=== PATIENT | female | born 1935 | race Caucasian/White ===

== ENCOUNTER 2019-01-12 15:40 | Inpatient (IN) | payer BC, OTHER ==
--- NOTE | 2019-01-12 16:38 | PDOC ---
History of Present Illness - General History Source: Patient - History of Present Illness Occurred: reports: other Severity: Yes: severe <Giselle Marinelli - Last Filed: 01/12/19 19:08> <Sneha Jang - Last Filed: 01/15/19 11:57> - General Chief Complaint: Wound Stated Complaint: LT HELIX WOUND Time Seen by Provider: 01/12/19 16:14 Past History - Past Medical History CVA: Yes COPD: No Diabetes: Yes HTN: Yes Thyroid Disease: Yes - Immunization History Immunization Up to Date: Yes - Suicide/Smoking/Psychosocial Hx Smoking History: Never smoked Have you smoked in the past 12 months: No If you are a former smoker, when did you quit?: 60 YRS AGO Hx Alcohol Use: No Drug/Substance Use Hx: No <Laquita MarinelliLisa - Last Filed: 01/12/19 19:08> <Sneha Jang - Last Filed: 01/15/19 11:57> - Past Medical History Allergies/Adverse Reactions: Allergies Allergy/AdvReac Type Severity Reaction Status Date / Time No Known Allergies Allergy Verified 01/12/19 15:01 Review of Systems - Review of Systems Constitutional: No: Chills, Fever, Malaise Integumentary: Yes: Erythema <Laquita MarinelliLisa - Last Filed: 01/12/19 19:08> *Physical Exam - Vital Signs Last Vital Signs Temp Pulse Resp BP Pulse Ox 98.5 F 54 L 17 153/49 L 99 01/12/19 15:43 01/12/19 15:43 01/12/19 15:43 01/12/19 15:43 01/12/19 15:43 - Physical Exam General Appearance: Yes: Appropriately Dressed. No: Apparent Distress HEENT: positive: Normal Voice Neck: positive: Supple Respiratory/Chest: negative: Respiratory Distress Extremity: positive: Erythema (Ulcer to tip of L great toe w/ extensive erythema to L foot extending into calf, no incr warmth or ttp, unable to palpate pulses) Integumentary: positive: Dry, Warm Neurologic: positive: Alert, Normal Mood/Affect <HeidelbergSirishaLaquitaLisa - Last Filed: 01/12/19 19:08> - Vital Signs Last Vital Signs Temp Pulse Resp BP Pulse Ox 98.0 F 52 L 19 152/66 96 01/15/19 09:53 01/15/19 09:53 01/15/19 09:53 01/15/19 09:53 01/14/19 21:00 <Sneha Jang - Last Filed: 01/15/19 11:57> ED Treatment Course - LABORATORY CBC & Chemistry Diagram: 01/12/19 17:25 01/12/19 17:25 - RADIOLOGY Radiology Studies Ordered: Category Date Time Status LOWER EXTREMITY MRI W/O-LEFT [MRI] Stat MRI 01/12/19 16:29 Ordered CHEST X-RAY PORTABLE* [RAD] Stat Radiology 01/12/19 16:28 Ordered FOOT-LEFT [RAD] Stat Radiology 01/12/19 16:29 Ordered DUPLEX VASCUL US-1 LEG [US] Stat Ultrasound 01/12/19 16:32 Ordered <Giselle Marinelli - Last Filed: 01/12/19 19:08> - LABORATORY CBC & Chemistry Diagram: 01/15/19 06:10 01/13/19 06:45 - Medications Given in the ED: ED Medications Discontinued Medications Generic Name Dose Route Start Last Admin Trade Name Freq PRN Reason Stop Dose Admin Vancomycin HCl 1,000 mg/ 250 mls @ 250 mls/hr 01/12/19 16:33 01/12/19 18:05 Dextrose IVPB 01/12/19 17:32 Not Given ONCE ONE Protocol Piperacillin Sod/Tazobactam 50 mls @ 100 mls/hr 01/12/19 18:03 01/12/19 18:05 Sod 3.375 gm/ Dextrose IVPB 01/12/19 18:32 100 mls/hr ONCE ONE Administration Protocol Vancomycin HCl 1,000 mg/ 250 mls @ 250 mls/hr 01/12/19 18:09 01/12/19 18:53 Dextrose IVPB 01/12/19 19:08 250 mls/hr ONCE ONE Administration Protocol Piperacillin Sod/Tazobactam 50 mls @ 100 mls/hr 01/13/19 02:00 01/13/19 09:35 Sod 3.375 gm/ Dextrose IVPB 01/13/19 10:29 100 mls/hr Q8H-IV LETICIA Administration <Sneha Jang - Last Filed: 01/15/19 11:57> Medical Decision Making - Medical Decision Making 01/12/19 16:33 83-year-old F, resident from [facility], w/o h/o HTN, HLD, DM, hypothyroid , sent to ED by Dr Vasquez of vascular for LLE cellulitis, r/o osteo. Patient reports swelling and redness to LLE for several weeks. Denies fever, chills or malaise. Per vascular notes, C&S collected from L great toe wound today. Patient to be admitted for IV antibiotics and to get MRI of L foot while in ER. M.D. also requesting ID consultation See exam LLE cellulitis, r/o osteo of L great toe No sytemic sxs Stable w/ open wound to L great toe w/ extensive cellulitis to LLE -IV abx -labs -XR -MRI -admit 01/12/19 16:44 01/12/19 19:11 Labs unremarkable. Case discussed with hospitalist and patient admitted <Giselle Marinelli - Last Filed: 01/12/19 19:08> *DC/Admit/Observation/Transfer - Discharge Dispostion Decision to Admit order: Yes <Giselle Marinelli - Last Filed: 01/12/19 19:08> - Attestations Physician Attestion: I reviewed the case with the mid-level practitioner and agree with the mid- level practitioner's assessment, diagnosis and disposition. <Sneha Jang - Last Filed: 01/15/19 11:57> Diagnosis at time of Disposition: Left leg cellulitis - Discharge Dispostion Condition at time of disposition: Fair
[2019-01-12 17:50] LABS: EOS % 2.9 % (0-4.5); HEMATOCRIT 29.1 % (32.4-45.2); HEMOGLOBIN 9.1 GM/dL (10.7-15.3); LYMPH % 20.1 % (8-40); MCH 25.7 pg (25.7-33.7); MCHC 31.3 g/dl (32.0-36.0); MEAN CELL VOLUME 82.2 fl (80-96); MEAN PLT VOLUME 8.5 fl (7.5-11.1); MONO % 6.7 % (3.8-10.2); NEUT % 69.3 % (42.8-82.8); PLATELET COUNT 377 K/MM3 (134-434); RBC 3.55 M/mm3 (3.60-5.2); RDW 15.4 % (11.6-15.6); WHITE BLOOD COUNT 7.2 K/mm3 (4.0-10.0)
[2019-01-12] MEDS ORDERED: PIPERACILLIN/TAZOB 3.375 GM 3.375 GM in DEXTROSE 5%-WATER - 50 ML IVPB ONE (18:03)
[2019-01-12] MEDS: VANCOMYCIN 1,000 MG in DEXTROSE 5%-WATER - 250 ML IVPB ONE ×2 (18:04→18:05)
[2019-01-12] MEDS ORDERED: PIPERACILLIN/TAZOB 3.375 GM 3.375 GM/50 ML BAG IVPB ONE (18:07)
[2019-01-12 18:09] LABS: INR 1.02 (0.83-1.09)
[2019-01-12] MEDS ORDERED: VANCOMYCIN 1,000 MG in DEXTROSE 5%-WATER - 250 ML IVPB ONE (18:09)
[2019-01-12 18:29] LABS: ALK PHOS 83 U/L (45-117); ANION GAP 6 MMOL/L (8-16); BILIRUBIN,TOTAL 0.2 mg/dL (0.2-1); BLOOD UREA NITROGEN 22 mg/dL (7-18); CALCIUM 9.5 mg/dL (8.5-10.1); CHLORIDE 106 mmol/L (98-107); CO2 27 mmol/L (21-32); CREATININE 0.8 mg/dL (0.55-1.3); GLUCOSE,RANDOM 127 mg/dL (74-106); POTASSIUM 4.6 mmol/L (3.5-5.1); SGOT/AST 12 U/L (15-37); SGPT/ALT 12 U/L (13-61); SODIUM 138 mmol/L (136-145)
--- NOTE | 2019-01-12 19:31 | PN ---
Teaching Attending Note Name of Resident: Arti Chong ATTENDING PHYSICIAN STATEMENT I saw and evaluated the patient. I reviewed the resident's note and discussed the case with the resident. I agree with the resident's findings and plan as documented. SUBJECTIVE: Patient is an 83 year old woman, resident of [facility] with PMH of HTN , HLD, NIDDM and hypothyroidism, sent to ER by Dr Vasquez of vascular for LLE wound and cellulitis to rule out osteomyelitis. Patient reports swelling and redness to LLE for several weeks. Denies fever, chills or malaise. Per Vascular Surgery notes, C&S collected from L great toe wound today. Patient to be admitted for IV antibiotics and to get MRI of L foot while in ER. PCP also requesting ID consultation. OBJECTIVE: Alert Vital Signs Period Temp Pulse Resp BP Sys/Torre Pulse Ox Last 24 Hr 98.5 F 54 17 153/49 99 HEENT: No Jaundice, eye redness or discharge, PERRLA, EOMI. Normocephalic, atraumatic. External ears are normal and hearing is grossly intact. No nasal discharge. Neck: Supple, nontender. No palpable adenopathy or thyromegaly. No JVD Chest: Good effort. Clear to auscultation and percussion. Heart: Regular. No S3, rub or murmur Abdomen: Not distended, soft, nontender and no HSM. No rebound or guarding. Normal bowel sounds. Ext: Peripheral pulses intact. No leg edema. Wound at tip of left great toe with associated swelling, nontender; erythema up to below the knee. Skin: Warm and dry. No petechiae, rash or ecchymosis. Neuro: Alert. Oriented x3. CN 2-12 grossly intact. Sensation grossly intact in all four extremities and DTR are symmetric. Psych: Appropriate mood and affect. Good insight. Abnormal Lab Results 01/12/19 01/12/19 01/12/19 17:25 17:25 17:27 RBC 3.55 L Hgb 9.1 L Hct 29.1 L MCHC 31.3 L Anion Gap 6 L BUN 22 H Random Glucose 127 H AST 12 L ALT 12 L C-Reactive Protein 2.8 H Albumin 3.0 L Current Medications Generic Name Dose Route Start Last Admin Trade Name Freq PRN Reason Stop Dose Admin Acetaminophen 650 mg 01/12/19 20:44 Tylenol - PO Q6H PRN FEVER Amlodipine Besylate 10 mg 01/13/19 10:00 Norvasc - PO DAILY [facility] Aspirin 81 mg 01/13/19 10:00 Asa - PO DAILY [facility] Calcium Carbonate/Cholecalciferol 1 tab 01/13/19 10:00 Os-Oskar 500+D - PO DAILY [facility] Clopidogrel Bisulfate 75 mg 01/13/19 10:00 Plavix - PO DAILY [facility] Docusate Sodium 100 mg 01/12/19 20:43 Colace - PO DAILY PRN CONSTIPATION Fenofibric Acid 45 mg 01/13/19 10:00 Trilipix - PO DAILY [facility] Heparin Sodium (Porcine) 5,000 unit 01/12/19 22:00 Heparin - SQ BID [facility] Hydralazine HCl 10 mg 01/12/19 22:00 Apresoline - PO TID [facility] Piperacillin Sod/Tazobactam 50 mls @ 100 mls/hr 01/13/19 02:00 Sod 3.375 gm/ Dextrose IVPB Q8H-IV [facility] Protocol Piperacillin Sod/Tazobactam 50 mls @ 100 mls/hr 01/13/19 02:00 Sod 3.375 gm/ Dextrose IVPB 01/13/19 10:29 Q8H-IV [facility] Insulin Aspart 1 vial 01/12/19 22:00 Novolog Vial Sliding Scale - SQ ACHS [facility] Protocol Lactobacillus Acidophilus 1 tab 01/13/19 10:00 Bacid - PO DAILY [facility] Levothyroxine Sodium 112 mcg 01/13/19 07:00 Synthroid - PO DAILY@0700 [facility] Lisinopril 20 mg 01/12/19 22:00 Prinivil PO BID [facility] Senna 1 tab 01/12/19 20:43 Senna - PO DAILY PRN CONSTIPATION Vancomycin HCl 1,000 mg 01/13/19 10:00 Vancomycin (Pre-Docked) IVPB DAILY [facility] Protocol Zinc Sulfate 220 mg 01/13/19 10:00 Orazinc - PO DAILY [facility] Home Medications Medication Instructions Recorded Amlodipine Besylate 1 tab PO DAILY 01/12/19 Ascorbic Acid [Vitamin C] 500 mg PO DAILY 01/12/19 Aspirin [ASA -] 1 tab PO DAILY 01/12/19 Calcium Carbonate/Vitamin D3 1 tab PO DAILY 01/12/19 [Calcium 500-Vit D3 600 Tablet] Clopidogrel Bisulfate [Plavix] 1 tab PO DAILY 01/12/19 Docusate Sodium [Colace] 1 tab PO DAILY PRN 01/12/19 Fenofibrate 40 mg PO DAILY 01/12/19 Glipizide 1 tab PO BID 01/12/19 Hydralazine HCl 10 mg PO TID 01/12/19 Lactobacillus Acidophilus [Bacid -] 1 tab PO DAILY 01/12/19 Levothyroxine [Synthroid -] 1 tab PO DAILY 01/12/19 Lisinopril 20 mg PO BID 01/12/19 Meloxicam [Mobic] 15 mg PO DAILY 01/12/19 Sennosides [Senna Laxative] 1 tab PO DAILY PRN 01/12/19 Zinc Sulfate [Zinc-15] 66 mg PO DAILY 01/12/19 ASSESSMENT AND PLAN: 1. Left great toe infected wound and LLE cellulitis - Will treat with IV Vancomycin and zosyn pending culture report. Foot xray shows fracture at the base of the first distal phalanx, soft tissue swelling and osteopenia. Results of MRI pending. Podiatry and vascular surgery consults. No acute abnormality on CXR. EKG pending. 2. Hypoalbuminemia - Possibly due to combined effects of malnutrition and inflammation associated with comorbid chronic conditions. Will rule out proteinuria. Will ensure adequate dietary protein intake and also consult computer trainer. 3. DM For now, we will hold the home diabetes drugs and implement sliding scale insulin regimen. Provide comprehensive diabetes care with patient teaching and counseling about the importance of adherence to prescribed diabetes regimen, euglycemia, eye care and foot care. 4. Anemia - Likely multifactorial. Will do basic anemia work up including serial stool guaiacs, reticulocyte count and iron studies. 5. Obesity Counseled on the risks associated with obesity. Will provide patient all the necessary assistance, counseling and positive reinforcement to facilitate weight loss. Consult computer trainer. 6. Uncontrolled Hypertension - Restart outpatient antihypertensive drugs and revise regimen to ensure smooth [id number] good BP control. Nonpharmacologic measures to control hypertension like weight loss, salt restriction and exercise discussed. 7. DVT prophylaxis - Lovenox 40 mg SQ q 24 hours. 8. Advance directives - Full code
[2019-01-12] MEDS ORDERED: DOCUSATE SODIUM 100 MG CAPSULE (FP) PO PRN (20:43)
[2019-01-12] MEDS ORDERED: SENNOSIDES 8.6MG TABLET (FP) PO PRN (20:43)
[2019-01-12] MEDS ORDERED: ACETAMINOPHEN 325 MG TABLET (FP) PO PRN (20:44)
--- NOTE | 2019-01-12 21:14 | HP ---
CHIEF COMPLAINT:left great toe ulcer PCP:Dr. Vasquez HISTORY OF PRESENT ILLNESS: Patient is an 83 year old female with past medical history of DM, HTN, HLD, hypothyroidism, presented from wound care clinic due to left great toe ulcers. Patient reported the wound started about 2 months ago, but could not remember any trauma to the area. As per patient it was cleaned at the [facility] everyday. She could not remember when the redness on the left leg started, saying it might have been about the same time as the ulcer. She was seen by Dr. Vasquez at the [facility] where she was told to come to the wound care clinic. This morning, debridement of the wound was done and cultures were taken. She was advised admission to rule out osteomyelitis and for IV antibiotics. Otherwise, patient denies any fever, chills, pain on the left leg/foot, headache, dizziness, chest pain, SOB, abdominal pain, diarrhea, urinary symptoms. ER course was notable for: (1)H/H 9.1/29.1, ESR 2.8, CRP 97 (2)Vanc and Zosyn given x1 (3)Left foot xray: Slightly displaced fracture at the base of the first distal phalanx, medially involving the articular surface. Significant osteopenia is limiting evaluation of the bone and focal bone destruction within the lateral aspect of the first disctal phalanx could not be entirely excluded. Significant soft tissue swelling. Recent Travel:denies PAST MEDICAL HISTORY: DM HTN HLD hypothyroidism PAST SURGICAL HISTORY: none Social History: Smoking: denies Alcohol:denies Drugs: denies Family History: Allergies No Known Allergies Allergy (Verified 01/12/19 15:01) HOME MEDICATIONS: Home Medications Medication Instructions Recorded Amlodipine Besylate 1 tab PO DAILY 01/12/19 Ascorbic Acid [Vitamin C] 500 mg PO DAILY 01/12/19 Aspirin [ASA -] 1 tab PO DAILY 01/12/19 Calcium Carbonate/Vitamin D3 1 tab PO DAILY 01/12/19 [Calcium 500-Vit D3 600 Tablet] Clopidogrel Bisulfate [Plavix] 1 tab PO DAILY 01/12/19 Docusate Sodium [Colace] 1 tab PO DAILY PRN 01/12/19 Fenofibrate 40 mg PO DAILY 01/12/19 Glipizide 1 tab PO BID 01/12/19 Hydralazine HCl 10 mg PO TID 01/12/19 Lactobacillus Acidophilus [Bacid -] 1 tab PO DAILY 01/12/19 Levothyroxine [Synthroid -] 1 tab PO DAILY 01/12/19 Lisinopril 20 mg PO BID 01/12/19 Meloxicam [Mobic] 15 mg PO DAILY 01/12/19 Sennosides [Senna Laxative] 1 tab PO DAILY PRN 01/12/19 Zinc Sulfate [Zinc-15] 66 mg PO DAILY 01/12/19 REVIEW OF SYSTEMS CONSTITUTIONAL: Absent: fever, chills, diaphoresis, generalized weakness, malaise, loss of appetite, weight change HEENT: Absent: rhinorrhea, nasal congestion, throat pain, throat swelling, difficulty swallowing, mouth swelling, ear pain, eye pain, visual changes CARDIOVASCULAR: Absent: chest pain, syncope, palpitations, irregular heart rate, lightheadedness , peripheral edema RESPIRATORY: Absent: cough, shortness of breath, dyspnea with exertion, orthopnea, wheezing, stridor, hemoptysis GASTROINTESTINAL: Absent: abdominal pain, abdominal distension, nausea, vomiting, diarrhea, constipation, melena, hematochezia GENITOURINARY: Absent: dysuria, frequency, urgency, hesitancy, hematuria, flank pain, genital pain MUSCULOSKELETAL: left great toe ulcer Absent: myalgia, arthralgia, joint swelling, back pain, neck pain SKIN: Absent: rash, itching, pallor HEMATOLOGIC/IMMUNOLOGIC: Absent: easy bleeding, easy bruising, lymphadenopathy, frequent infections ENDOCRINE: Absent: unexplained weight gain, unexplained weight loss, heat intolerance, cold intolerance NEUROLOGIC: Absent: headache, focal weakness or paresthesias, dizziness, unsteady gait, seizure, mental status changes, bladder or bowel incontinence PSYCHIATRIC: Absent: anxiety, depression, suicidal or homicidal ideation, hallucinations. PHYSICAL EXAMINATION Vital Signs - 24 hr 01/12/19 15:43 Temperature 98.5 F Pulse Rate 54 L Respiratory 17 Rate Blood Pressure 153/49 L O2 Sat by Pulse 99 Oximetry (%) GENERAL: Awake, alert, and fully oriented, in no acute distress. HEAD: Normal with no signs of trauma. EYES: PERRLA, EOMI, sclera anicteric, conjunctiva clear. EARS, NOSE, THROAT: oropharynx clear without exudates. Moist mucous membranes. NECK: Normal range of motion, supple without lymphadenopathy, JVD, or masses. LUNGS: Breath sounds equal, clear to auscultation bilaterally. HEART: Regular rate and rhythm, normal S1 and S2 without murmur, rub or gallop. ABDOMEN: Soft, nontender, not distended, normoactive bowel sounds. MUSCULOSKELETAL: Normal range of motion at all joints. UPPER EXTREMITIES: 2+ pulses, warm, well-perfused. No peripheral edema. LOWER EXTREMITIES: 2+ pulses, warm, well-perfused. No peripheral edema. LLE: + erythema, no warmth or tenderness from mid-jefferson down to the left foot. +left toe wrapped in dressing (patient refused to have the bandage removed and toe examined) NEUROLOGICAL: Cranial nerves II-XII intact. Normal speech. Gait not observed. PSYCHIATRIC: Cooperative. Good eye contact. Appropriate mood and affect. SKIN: Warm, dry, normal turgor, no rashes or lesions noted. Laboratory Results - last 24 hr 01/12/19 01/12/19 01/12/19 17:25 17:25 17:25 WBC 7.2 RBC 3.55 L Hgb 9.1 L Hct 29.1 L MCV 82.2 MCH 25.7 MCHC 31.3 L RDW 15.4 Plt Count 377 MPV 8.5 Absolute Neuts (auto) 5.0 Neutrophils % 69.3 Lymphocytes % 20.1 Monocytes % 6.7 Eosinophils % 2.9 Basophils % 1.0 Nucleated RBC % 0 ESR PT with INR 12.00 INR 1.02 Sodium 138 Potassium 4.6 Chloride 106 Carbon Dioxide 27 Anion Gap 6 L BUN 22 H Creatinine 0.8 Creat Clearance w eGFR 68.84 Random Glucose 127 H Calcium 9.5 Total Bilirubin 0.2 AST 12 L ALT 12 L Alkaline Phosphatase 83 C-Reactive Protein Total Protein 7.0 Albumin 3.0 L Blood Type Antibody Screen 01/12/19 01/12/19 01/12/19 17:25 17:27 17:27 WBC RBC Hgb Hct MCV MCH MCHC RDW Plt Count MPV Absolute Neuts (auto) Neutrophils % Lymphocytes % Monocytes % Eosinophils % Basophils % Nucleated RBC % ESR 97 H PT with INR INR Sodium Potassium Chloride Carbon Dioxide Anion Gap BUN Creatinine Creat Clearance w eGFR Random Glucose Calcium Total Bilirubin AST ALT Alkaline Phosphatase C-Reactive Protein 2.8 H Total Protein Albumin Blood Type O POSITIVE Antibody Screen Negative ASSESSMENT/PLAN: Patient is an 83 year old female with past medical history of DM, HTN, HLD, hypothyroidism, presented from wound care clinic due to left great toe ulcers. #Left great toe ulcers with left LE cellulitis, rule out osteomyelitis -Debridement done at the wound care clinic today, cultures pending. -Left foot xray: Slightly displaced fracture at the base of the first distal phalanx, medially involving the articular surface. Significant osteopenia is limiting evaluation of the bone and focal bone destruction within the lateral aspect of the first disctal phalanx could not be entirely excluded. Significant soft tissue swelling. -MRI pending -Vascular surgery (Dr. Vasquez) consulted. -ID (Dr. Young) consulted. -Wound cultures pending -Will continue Vanc/Zosyn pending culture and ID recs -Tylenol PRN for pain #DM -Will hold Metformin and Glipizide -HbA1c ordered -Insulin sliding scale -BGM ACHS #Hypertension -Continue Lisinopril 20mg BID -Amlodipine 10mg daily -Hydralazine 10mg TID #Hypothyroidism -Continue home Synthroid 112mcg daily #FEN -Not on any standing fluids -Encourage increased oral fluid intake -Electrolytes wnl, routine bmp monitoring -Diabetic diet #Prophylaxis -Heparin 5000unit sq bid #disposition -full code -med surg Visit type - Emergency Visit Emergency Visit: Yes ED Registration Date: 01/12/19 Care time: The patient presented to the Emergency Department on the above date and was hospitalized for further evaluation of their emergent condition. - New Patient This patient is new to me today: Yes Date on this admission: 01/13/19 - Critical Care Critical Care patient: No
[2019-01-12] MEDS ORDERED: LISINOPRIL 20 MG TABLET (FP) ONE (22:22)
[2019-01-12] MEDS ORDERED: HEPARIN NA (PORCINE) 5,000 UNITS/ML 1ML VIAL ONE (22:23)
[2019-01-12] MEDS: hydrALAZINE HCL 10 MG TABLET PO SCH (22:33)
[2019-01-12] MEDS: INSULIN SLIDING SCALE (NOVOLOG) 1 VIAL SQ SCH (22:39)
[2019-01-12] MEDS: LISINOPRIL 20 MG TABLET (FP) PO SCH ×2 (22:39→23:10)
[2019-01-12] MEDS: HEPARIN NA (PORCINE) 5,000 UNITS/ML 1ML VIAL SQ SCH (22:39)
[2019-01-12] MEDS ORDERED: INSULIN (NOVOLOG) ASPART 100 UNITS/ML 10ML VIAL ONE (22:44)
[2019-01-13] MEDS ORDERED: PIPERACILLIN/TAZOB 3.375 GM 3.375 GM/50 ML BAG IVPB ONE (02:20)
[2019-01-13] MEDS: PIPERACILLIN/TAZOB 3.375 GM 3.375 GM in DEXTROSE 5%-WATER - 50 ML IVPB SCH ×3 (02:24→18:21)
[2019-01-13 03:45] VITALS: BMI 34.0
[2019-01-13] MEDS: INSULIN SLIDING SCALE (NOVOLOG) 1 VIAL SQ SCH ×4 (06:46→22:04)
[2019-01-13] MEDS: LEVOTHYROXINE NA 112 MCG TABLET (FP) PO SCH (06:47)
[2019-01-13] MEDS: hydrALAZINE HCL 10 MG TABLET PO SCH ×3 (06:47→22:01)
[2019-01-13 07:35] LABS: EOS % 2.7 % (0-4.5); HEMATOCRIT 25.7 % (32.4-45.2); HEMOGLOBIN 8.4 GM/dL (10.7-15.3); LYMPH % 21.2 % (8-40); MCH 26.2 pg (25.7-33.7); MCHC 32.7 g/dl (32.0-36.0); MEAN CELL VOLUME 80.1 fl (80-96); MEAN PLT VOLUME 8.4 fl (7.5-11.1); MONO % 7.5 % (3.8-10.2); NEUT % 67.6 % (42.8-82.8); PLATELET COUNT 338 K/MM3 (134-434); RBC 3.21 M/mm3 (3.60-5.2); RDW 15.8 % (11.6-15.6); WHITE BLOOD COUNT 6.9 K/mm3 (4.0-10.0)
[2019-01-13 08:03] LABS: ALBUMIN 2.6 g/dl (3.4-5.0); ALK PHOS 71 U/L (45-117); ANION GAP 6 MMOL/L (8-16); BILIRUBIN,TOTAL 0.2 mg/dL (0.2-1); BLOOD UREA NITROGEN 17 mg/dL (7-18); CALCIUM 8.4 mg/dL (8.5-10.1); CHLORIDE 110 mmol/L (98-107); CO2 26 mmol/L (21-32); CREATININE 0.9 mg/dL (0.55-1.3); GLUCOSE,RANDOM 117 mg/dL (74-106); MAGNESIUM 1.9 mg/dL (1.8-2.4); PHOSPHOROUS 3.1 mg/dL (2.5-4.9); POTASSIUM 4.3 mmol/L (3.5-5.1); SGOT/AST 9 U/L (15-37); SGPT/ALT 9 U/L (13-61); SODIUM 142 mmol/L (136-145); TOT PROT 5.9 g/dl (6.4-8.2)
--- NOTE | 2019-01-13 08:52 | PN ---
Teaching Attending Note ATTENDING PHYSICIAN STATEMENT I saw and evaluated the patient. I reviewed the resident's note and discussed the case with the resident. I agree with the resident's findings and plan as documented. SUBJECTIVE: OBJECTIVE: Vital Signs Temperature 97.9 F 01/13/19 03:41 Pulse Rate 53 L 01/13/19 03:41 Respiratory Rate 17 01/13/19 03:59 Blood Pressure 149/69 01/13/19 03:41 O2 Sat by Pulse Oximetry (%) 98 01/13/19 03:59 GENERAL: Awake, alert, and fully oriented, in no acute distress. HEAD: Normal with no signs of trauma. EYES: PERRLA, EOMI, sclera anicteric, conjunctiva clear. EARS, NOSE, THROAT: oropharynx clear without exudates. Moist mucous membranes. NECK: Normal range of motion, supple without lymphadenopathy, JVD, or masses. LUNGS: Breath sounds equal, clear to auscultation bilaterally. HEART: Regular rate and rhythm, normal S1 and S2 without murmur, rub or gallop. ABDOMEN: Soft, nontender, not distended, normoactive bowel sounds. MUSCULOSKELETAL: Normal range of motion at all joints. UPPER EXTREMITIES: 2+ pulses, warm, well-perfused. No peripheral edema. LOWER EXTREMITIES: 2+ pulses, warm, well-perfused. No peripheral edema. LLE: + erythema, no warmth or tenderness from mid-jefferson down to the left foot. +left toe wrapped in dressing (patient refused to have the bandage removed and toe examined) NEUROLOGICAL: Cranial nerves II-XII intact. Normal speech. Gait not observed. PSYCHIATRIC: Cooperative. Good eye contact. Appropriate mood and affect. SKIN: Warm, dry, normal turgor, no rashes or lesions noted. CBCD WBC 6.9 K/mm3 (4.0-10.0) 01/13/19 06:45 RBC 3.21 M/mm3 (3.60-5.2) L 01/13/19 06:45 Hgb 8.4 GM/dL (10.7-15.3) L 01/13/19 06:45 Hct 25.7 % (32.4-45.2) L 01/13/19 06:45 MCV 80.1 fl (80-96) 01/13/19 06:45 MCHC 32.7 g/dl (32.0-36.0) 01/13/19 06:45 RDW 15.8 % (11.6-15.6) H 01/13/19 06:45 Plt Count 338 K/MM3 (134-434) 01/13/19 06:45 MPV 8.4 fl (7.5-11.1) 01/13/19 06:45 CMP Sodium 142 mmol/L (136-145) 01/13/19 06:45 Potassium 4.3 mmol/L (3.5-5.1) 01/13/19 06:45 Chloride 110 mmol/L (98-107) H 01/13/19 06:45 Carbon Dioxide 26 mmol/L (21-32) 01/13/19 06:45 Anion Gap 6 MMOL/L (8-16) L 01/13/19 06:45 BUN 17 mg/dL (7-18) 01/13/19 06:45 Creatinine 0.9 mg/dL (0.55-1.3) 01/13/19 06:45 Creat Clearance w eGFR 60.09 (>60) 01/13/19 06:45 Random Glucose 117 mg/dL (74-106) H 01/13/19 06:45 Calcium 8.4 mg/dL (8.5-10.1) L 01/13/19 06:45 Total Bilirubin 0.2 mg/dL (0.2-1) 01/13/19 06:45 AST 9 U/L (15-37) L 01/13/19 06:45 ALT 9 U/L (13-61) L 01/13/19 06:45 Alkaline Phosphatase 71 U/L (45-117) 01/13/19 06:45 Total Protein 5.9 g/dl (6.4-8.2) L 01/13/19 06:45 Albumin 2.6 g/dl (3.4-5.0) L 01/13/19 06:45 Current Medications Generic Name Dose Route Start Last Admin Trade Name Freq PRN Reason Stop Dose Admin Acetaminophen 650 mg 01/12/19 20:44 Tylenol - PO Q6H PRN FEVER Amlodipine Besylate 10 mg 01/13/19 10:00 Norvasc - PO DAILY [facility] Aspirin 81 mg 01/13/19 10:00 Asa - PO DAILY [facility] Calcium Carbonate/Cholecalciferol 1 tab 04/13/19 10:00 Os-Oskar 500+D - PO DAILY [facility] Clopidogrel Bisulfate 75 mg 01/13/19 10:00 Plavix - PO DAILY [facility] Docusate Sodium 100 mg 01/12/19 20:43 Colace - PO DAILY PRN CONSTIPATION Fenofibric Acid 45 mg 01/13/19 10:00 Trilipix - PO DAILY [facility] Heparin Sodium (Porcine) 5,000 unit 01/12/19 22:00 01/12/19 22:39 Heparin - SQ 5,000 unit BID [facility] Administration Hydralazine HCl 10 mg 01/12/19 22:00 01/13/19 06:47 Apresoline - PO 10 mg TID [facility] Administration Piperacillin Sod/Tazobactam 50 mls @ 100 mls/hr 01/13/19 02:00 Sod 3.375 gm/ Dextrose IVPB Q8H-IV [facility] Protocol Piperacillin Sod/Tazobactam 50 mls @ 100 mls/hr 01/13/19 02:00 01/13/19 02:24 Sod 3.375 gm/ Dextrose IVPB 01/13/19 10:29 100 mls/hr Q8H-IV [facility] Administration Insulin Aspart 1 vial 01/12/19 22:00 01/13/19 06:46 Novolog Vial Sliding Scale - SQ Not Given ACHS [facility] Protocol Lactobacillus Acidophilus 1 tab 01/13/19 10:00 Bacid - PO DAILY [facility] Levothyroxine Sodium 112 mcg 01/13/19 07:00 01/13/19 06:47 Synthroid - PO 112 mcg DAILY@0700 [facility] Administration Lisinopril 20 mg 01/12/19 22:00 01/12/19 23:10 Prinivil PO 20 mg BID [facility] Administration Senna 1 tab 01/12/19 20:43 Senna - PO DAILY PRN CONSTIPATION Vancomycin HCl 1,000 mg 01/13/19 10:00 Vancomycin (Pre-Docked) IVPB DAILY [facility] Protocol Zinc Sulfate 220 mg 01/13/19 10:00 Orazinc - PO DAILY [facility] Home Medications Medication Instructions Recorded Amlodipine Besylate 1 tab PO DAILY 01/12/19 Ascorbic Acid [Vitamin C] 500 mg PO DAILY 01/12/19 Aspirin [ASA -] 1 tab PO DAILY 01/12/19 Calcium Carbonate/Vitamin D3 1 tab PO DAILY 01/12/19 [Calcium 500-Vit D3 600 Tablet] Clopidogrel Bisulfate [Plavix] 1 tab PO DAILY 01/12/19 Docusate Sodium [Colace] 1 tab PO DAILY PRN 01/12/19 Fenofibrate 40 mg PO DAILY 01/12/19 Glipizide 1 tab PO BID 01/12/19 Hydralazine HCl 10 mg PO TID 01/12/19 Lactobacillus Acidophilus [Bacid -] 1 tab PO DAILY 01/12/19 Levothyroxine [Synthroid -] 1 tab PO DAILY 01/12/19 Lisinopril 20 mg PO BID 01/12/19 Meloxicam [Mobic] 15 mg PO DAILY 01/12/19 Sennosides [Senna Laxative] 1 tab PO DAILY PRN 01/12/19 Zinc Sulfate [Zinc-15] 66 mg PO DAILY 01/12/19 ASSESSMENT AND PLAN: Patient is an 83 year old female with past medical history of DM, HTN, HLD, hypothyroidism, presented from wound care clinic due to left great toe ulcers. #Left great toe ulcers with left LE cellulitis, rule out osteomyelitis -Debridement done at the wound care clinic today, cultures pending. -Left foot xray: Slightly displaced fracture at the base of the first distal phalanx, medially involving the articular surface. Significant osteopenia is limiting evaluation of the bone and focal bone destruction within the lateral aspect of the first disctal phalanx could not be entirely excluded. Significant soft tissue swelling. -MRI pending -Vascular surgery (Dr. Vasquez) consulted. -ID (Dr. Young) consulted. -Wound cultures pending -Will continue Vanc/Zosyn pending culture and ID recs -Tylenol PRN for pain #DM -Will hold Metformin and Glipizide -HbA1c ordered -Insulin sliding scale -BGM ACHS #Hypertension -Continue Lisinopril 20mg BID -Amlodipine 10mg daily -Hydralazine 10mg TID #Hypothyroidism -Continue home Synthroid 112mcg daily #FEN -Not on any standing fluids -Encourage increased oral fluid intake -Electrolytes wnl, routine bmp monitoring -Diabetic diet #Prophylaxis -Heparin 5000unit sq bid #disposition -full code -med surg
[2019-01-13] MEDS ORDERED: PT OWN MED DRAWER 7, Y5N ONE ×2 (09:29→09:37)
[2019-01-13] MEDS ORDERED: DEXTROSE 5%-WATER - 50 ML IVPB ONE ×2 (09:29→18:20)
[2019-01-13] MEDS ORDERED: PIPERACILLIN/TAZOBACTAM 3.375 GM VIAL IVPB ONE ×2 (09:29→18:19)
[2019-01-13] MEDS: CALCIUM 500MG/VIT-D 200 UNITS COMBO TABLET (FP) PO SCH ×2 (09:31→10:00)
[2019-01-13] MEDS: ASPIRIN 81 MG CHEWABLE TABLETS PO SCH (09:31)
[2019-01-13] MEDS: ZINC SULFATE 220 MG CAPSULE (FP) PO SCH ×2 (09:31→11:00)
[2019-01-13] MEDS: HEPARIN NA (PORCINE) 5,000 UNITS/ML 1ML VIAL SQ SCH ×3 (09:31→22:09)
[2019-01-13] MEDS: LISINOPRIL 20 MG TABLET (FP) PO SCH ×2 (09:31→22:01)
[2019-01-13] MEDS: CLOPIDOGREL BISULFATE 75 MG TABLET (FP) PO SCH (09:31)
[2019-01-13] MEDS: amLODIPine BESYLATE 10 MG TABLET (FP) PO SCH (09:31)
[2019-01-13] MEDS: LACTOBACILLUS ACIDOPHILUS 1 TABLET PO SCH (09:31)
--- NOTE | 2019-01-13 10:35 | PN ---
Progress Note (short form) - Note Progress Note: Patient is an 83 year old female with past medical history of DM, HTN, HLD, hypothyroidism, presented from wound care clinic due to left great toe ulcers. Vital Signs Temperature 97.9 F 01/13/19 03:41 Pulse Rate 53 L 01/13/19 03:41 Respiratory Rate 17 01/13/19 03:59 Blood Pressure 149/69 01/13/19 03:41 O2 Sat by Pulse Oximetry (%) 98 01/13/19 03:59 GENERAL: Awake, alert, and fully oriented, in no acute distress. HEAD: Normal with no signs of trauma. EYES: PERRLA, EOMI, sclera anicteric, conjunctiva clear. EARS, NOSE, THROAT: oropharynx clear without exudates. Moist mucous membranes. NECK: Normal range of motion, supple without lymphadenopathy, JVD, or masses. LUNGS: Breath sounds equal, clear to auscultation bilaterally. HEART: Regular rate and rhythm, normal S1 and S2 without murmur, rub or gallop. ABDOMEN: Soft, nontender, not distended, normoactive bowel sounds. EXTREMITIES: 2+ pulses, warm, well-perfused. No peripheral edema. LLE: + erythema up to mid-jefferson of left foot. big toe is swollen, with open ulcers on the plantar surface of the toe with purulent drainage from the big toe NEUROLOGICAL: Cranial nerves II-XII intact. Normal speech. Gait not observed. PSYCHIATRIC: Cooperative. Good eye contact. Appropriate mood and affect. SKIN: Warm, dry, normal turgor, no rashes or lesions noted. CBCD WBC 6.9 K/mm3 (4.0-10.0) 01/13/19 06:45 RBC 3.21 M/mm3 (3.60-5.2) L 01/13/19 06:45 Hgb 8.4 GM/dL (10.7-15.3) L 01/13/19 06:45 Hct 25.7 % (32.4-45.2) L 01/13/19 06:45 MCV 80.1 fl (80-96) 01/13/19 06:45 MCHC 32.7 g/dl (32.0-36.0) 01/13/19 06:45 RDW 15.8 % (11.6-15.6) H 01/13/19 06:45 Plt Count 338 K/MM3 (134-434) 01/13/19 06:45 MPV 8.4 fl (7.5-11.1) 01/13/19 06:45 CMP Sodium 142 mmol/L (136-145) 01/13/19 06:45 Potassium 4.3 mmol/L (3.5-5.1) 01/13/19 06:45 Chloride 110 mmol/L (98-107) H 01/13/19 06:45 Carbon Dioxide 26 mmol/L (21-32) 01/13/19 06:45 Anion Gap 6 MMOL/L (8-16) L 01/13/19 06:45 BUN 17 mg/dL (7-18) 01/13/19 06:45 Creatinine 0.9 mg/dL (0.55-1.3) 01/13/19 06:45 Creat Clearance w eGFR 60.09 (>60) 01/13/19 06:45 Random Glucose 117 mg/dL (74-106) H 01/13/19 06:45 Calcium 8.4 mg/dL (8.5-10.1) L 01/13/19 06:45 Total Bilirubin 0.2 mg/dL (0.2-1) 01/13/19 06:45 AST 9 U/L (15-37) L 01/13/19 06:45 ALT 9 U/L (13-61) L 01/13/19 06:45 Alkaline Phosphatase 71 U/L (45-117) 01/13/19 06:45 Total Protein 5.9 g/dl (6.4-8.2) L 01/13/19 06:45 Albumin 2.6 g/dl (3.4-5.0) L 01/13/19 06:45 Current Medications Generic Name Dose Route Start Last Admin Trade Name Freq PRN Reason Stop Dose Admin Acetaminophen 650 mg 01/12/19 20:44 Tylenol - PO Q6H PRN FEVER Amlodipine Besylate 10 mg 01/13/19 10:00 Norvasc - PO DAILY [facility] Aspirin 81 mg 01/13/19 10:00 Asa - PO DAILY [facility] Calcium Carbonate/Cholecalciferol 1 tab 01/13/19 10:00 Os-Oskar 500+D - PO DAILY [facility] Clopidogrel Bisulfate 75 mg 01/13/19 10:00 Plavix - PO DAILY [facility] Docusate Sodium 100 mg 01/12/19 20:43 Colace - PO DAILY PRN CONSTIPATION Fenofibric Acid 45 mg 01/13/19 10:00 Trilipix - PO DAILY [facility] Heparin Sodium (Porcine) 5,000 unit 01/12/19 22:00 01/12/19 22:39 Heparin - SQ 5,000 unit BID [facility] Administration Hydralazine HCl 10 mg 01/12/19 22:00 01/13/19 06:47 Apresoline - PO 10 mg TID [facility] Administration Piperacillin Sod/Tazobactam 50 mls @ 100 mls/hr 01/13/19 02:00 Sod 3.375 gm/ Dextrose IVPB Q8H-IV [facility] Protocol Piperacillin Sod/Tazobactam 50 mls @ 100 mls/hr 01/13/19 02:00 01/13/19 02:24 Sod 3.375 gm/ Dextrose IVPB 01/13/19 10:29 100 mls/hr Q8H-IV [facility] Administration Insulin Aspart 1 vial 01/12/19 22:00 01/13/19 06:46 Novolog Vial Sliding Scale - SQ Not Given ACHS [facility] Protocol Lactobacillus Acidophilus 1 tab 01/13/19 10:00 Bacid - PO DAILY [facility] Levothyroxine Sodium 112 mcg 01/13/19 07:00 01/13/19 06:47 Synthroid - PO 112 mcg DAILY@0700 [facility] Administration Lisinopril 20 mg 01/12/19 22:00 01/12/19 23:10 Prinivil PO 20 mg BID [facility] Administration Senna 1 tab 01/12/19 20:43 Senna - PO DAILY PRN [facility]STIP[facility] Vancomycin HCl 1,000 mg 01/13/19 10:00 Vancomycin (Pre-Docked) IVPB DAILY [facility] Protocol Zinc Sulfate 220 mg 01/13/19 10:00 Orazinc - PO DAILY [facility] Home Medications Medication Instructions Recorded Amlodipine Besylate 1 tab PO DAILY 01/12/19 Ascorbic Acid [Vitamin C] 500 mg PO DAILY 01/12/19 Aspirin [ASA -] 1 tab PO DAILY 01/12/19 Calcium Carbonate/Vitamin D3 1 tab PO DAILY 01/12/19 [Calcium 500-Vit D3 600 Tablet] Clopidogrel Bisulfate [Plavix] 1 tab PO DAILY 01/12/19 Docusate Sodium [Colace] 1 tab PO DAILY PRN 01/12/19 Fenofibrate 40 mg PO DAILY 01/12/19 Glipizide 1 tab PO BID 01/12/19 Hydralazine HCl 10 mg PO TID 01/12/19 Lactobacillus Acidophilus [Bacid -] 1 tab PO DAILY 01/12/19 Levothyroxine [Synthroid -] 1 tab PO DAILY 01/12/19 Lisinopril 20 mg PO BID 01/12/19 Meloxicam [Mobic] 15 mg PO DAILY 01/12/19 Sennosides [Senna Laxative] 1 tab PO DAILY PRN 01/12/19 Zinc Sulfate [Zinc-15] 66 mg PO DAILY 01/12/19 ASSESSMENT AND PLAN: Patient is an 83 year old female with past medical history of DM, HTN, HLD, hypothyroidism, presented from wound care clinic due to left great toe ulcers. #Left great toe ulcers with left LE cellulitis with osteomyelitis on IV Zosyn and Vanco. will continue , ID on the case, wound cx done follow up with the result. -Tylenol PRN for pain #T2DM continue with sliding scale with coverage , Glipizide and metfromin is on hold. HbA1c ordered #Hypertension continue Lisinopril 20mg BID/Amlodipine 10mg daily/Hydralazine 10mg TID #Hypothyroidism continue home Synthroid 112mcg daily Dvt Prophylaxis: Heparin 5000unit sq bid -full code -med surg Visit type - Emergency Visit Emergency Visit: Yes ED Registration Date: 01/12/19 Care time: The patient presented to the Emergency Department on the above date and was hospitalized for further evaluation of their emergent condition. - New Patient This patient is new to me today: Yes Date on this admission: 01/13/19 - Critical Care Critical Care patient: No - Discharge Referral Referred to [facility] No
[2019-01-13 10:39] LABS: URINE APPEARANCE CLEAR; URINE BILIRUBIN NEGATIVE (NEGATIVE); URINE COLOR YELLOW; URINE GLUCOSE (UA) NEGATIVE (NEGATIVE); URINE KETONE NEGATIVE (NEGATIVE); URINE LEUK ESTERASE NEGATIVE (NEGATIVE); URINE NITRITE NEGATIVE (NEGATIVE); URINE PROTEIN TRACE (NEGATIVE); URINE UROBILINOGEN 0.2 mg/dL (0.2-1.0)
[2019-01-13] MEDS: FENOFIBRIC ACID 45 MG CAP PO SCH (12:23)
--- NOTE | 2019-01-13 13:29 | PN ---
Progress Note (short form) - Note Progress Note: 83 yo female admitted from wound care with an ulcer on her left great toe for last 2 months (at least) she reports topical tretment at the [facility], seen in wound care by dr quesada and sent for admission no fevers or chills feels well +pmh DM received vancomycin and zosyn in the ED no cultures sent on exam she has swelling of the LLE with erythema big toe is swollen, open ulcers on the plantar surface of the toe- + purulent drainage from the big toe xray with fracture of big toe and probable destruction of the toe cellulitis of the LLE possible abscess of the big toe r/o osteomyelitis await MRI vancomycin and zosyn will send culture of the toe and blood cultures d/w hospitalist Problem List - Problems (1) Left leg cellulitis Code(s): L03.116 - CELLULITIS OF LEFT LOWER LIMB (2) Type 2 diabetes mellitus with foot ulcer Code(s): E11.621 - TYPE 2 DIABETES MELLITUS WITH FOOT ULCER; L97.509 - NON- PRESSURE CHRONIC ULCER OTH PRT UNSP FOOT W UNSP SEVERITY (3) Osteomyelitis Code(s): M86.9 - OSTEOMYELITIS, UNSPECIFIED
--- NOTE | 2019-01-13 14:02 | CONS ---
INFECTIOUS DISEASE CONSULTATION DATE OF CONSULTATION: DATE OF DICTATION: 01/13/2019 REQUESTING PHYSICIAN: The hospitalist service. This is an 83-year-old woman who has been living at a intermediate for the last 2 years. She has a history of [id number] diabetes. For the last 2 months, she has had an ulcer on the bottom of her left big toe. She is unclear why. She does not recall any trauma or any incidents that would have led to it. She says they have been putting ointments on her toe, but it has not been getting any better. She has not noted any erythema. She denied any fevers or chills. She was seen by Dr. Vasquez at the intermediate where she was told to come to wound care, and she was admitted from wound care. She had an x-ray of the foot done that showed a fracture at the base of the 1st distal phalanx and probable destruction of the lateral aspect of the distal phalanx. She denies any fevers or chills. Otherwise feels well. PAST MEDICAL HISTORY: Notable for diabetes, hypertension, hyperlipidemia, hypothyroidism. PAST SURGICAL HISTORY: She has never had any surgery. SOCIAL HISTORY: She has 2 children. She has been residing at the intermediate for the last 2 years. She last smoked when she was 22. ALLERGIES: She has no known drug allergies. MEDICATIONS: Include amlodipine, vitamin C, aspirin, calcium with vitamin D, Plavix, Colace, fenofibrate, glipizide, hydralazine, Bacid, Synthroid, lisinopril, meloxicam, senna, and zinc. REVIEW OF SYSTEMS: She has been eating well. She has no headaches. Her weight has been stable. She has had no fevers or chills. She has no difficulty swallowing. She has no chest pain, abdominal pain, and she has no trouble urinating. Her bowel movements have been normal. She does not suffer from constipation or diarrhea. FAMILY HISTORY: Noncontributory. PHYSICAL EXAMINATION: Vital Signs: Her temperature is 97.9. Pulse is 53. Blood pressure 149/69. Respiratory rate 17. She weighs 84 kg. HEENT: She is normocephalic. Her eyes are anicteric. Neck: Supple. Lungs: Clear to auscultation. Heart: Regular rate and rhythm. Abdomen: Soft, nontender. Extremities: Notable for swelling of the left leg compared to the right and diffusely of the foot including the big toe as well as the lower leg. She has erythema in the pretibial area of the leg as well. The bottom of the toe she has 2 or 3 small openings from which pus can be expressed. Her leg is warm and swollen. LABORATORY DATA: Notable for a white count of 6.9, hemoglobin 8.4, platelets at 338. Sedimentation rate is 97. INR is 1. BUN is 17 and creatinine 0.9. LFTs are normal. Hemoglobin A1c is 7.8. CRP is 2.8. Urinalysis is negative. No cultures were sent. She received vancomycin and Zosyn in the ER, and no wound culture was collected at the wound care. Imaging is as previously said. She had a duplex of the leg that is negative for deep venous thrombosis. She had a chest x-ray that shows no gross lung pathology. In summary, this is an 83-year-old woman admitted with a chronic ulcer on her foot, cellulitis of the left lower extremity, possible abscess of the big toe, and probable osteomyelitis. We are awaiting an MRI. Would continue vancomycin and Zosyn. Will send culture of the toe drainage as well as blood cultures. Case was discussed with the hospitalist. RASHAAD EDWARDS M.D. [id number]
[2019-01-13] MEDS: VANCOMYCIN 1 GM in D5W (PRE-DOCKED) 1,000 MG/250 ML IVPB SCH (22:29)
[2019-01-14] MEDS: PIPERACILLIN/TAZOB 3.375 GM 3.375 GM in DEXTROSE 5%-WATER - 50 ML IVPB SCH ×3 (03:39→18:07)
[2019-01-14] MEDS ORDERED: PT OWN MED DRAWER 7, Y5N ONE ×4 (06:35→17:07)
[2019-01-14] MEDS: hydrALAZINE HCL 10 MG TABLET PO SCH ×3 (06:51→22:01)
[2019-01-14] MEDS: INSULIN SLIDING SCALE (NOVOLOG) 1 VIAL SQ SCH ×4 (07:00→22:01)
[2019-01-14] MEDS: LEVOTHYROXINE NA 112 MCG TABLET (FP) PO SCH (08:13)
[2019-01-14] MEDS ORDERED: PIPERACILLIN/TAZOBACTAM 3.375 GM VIAL IVPB ONE ×2 (10:03→17:03)
[2019-01-14] MEDS ORDERED: DEXTROSE 5%-WATER - 50 ML IVPB ONE ×2 (10:04→17:03)
[2019-01-14 10:21] LABS: BASO % 1.5 % (0-2.0); EOS % 3.4 % (0-4.5); HEMATOCRIT 28.7 % (32.4-45.2); HEMOGLOBIN 9.3 GM/dL (10.7-15.3); LYMPH % 23.5 % (8-40); MCH 26.1 pg (25.7-33.7); MCHC 32.3 g/dl (32.0-36.0); MEAN CELL VOLUME 80.7 fl (80-96); MEAN PLT VOLUME 8.3 fl (7.5-11.1); MONO % 7.3 % (3.8-10.2); NEUT % 64.3 % (42.8-82.8); PLATELET COUNT 364 K/MM3 (134-434); RBC 3.55 M/mm3 (3.60-5.2); RDW 15.3 % (11.6-15.6); WHITE BLOOD COUNT 6.1 K/mm3 (4.0-10.0)
[2019-01-14] MEDS: amLODIPine BESYLATE 10 MG TABLET (FP) PO SCH (10:38)
[2019-01-14] MEDS: ASPIRIN 81 MG CHEWABLE TABLETS PO SCH (10:39)
[2019-01-14] MEDS: CLOPIDOGREL BISULFATE 75 MG TABLET (FP) PO SCH (10:39)
[2019-01-14] MEDS: LISINOPRIL 20 MG TABLET (FP) PO SCH ×2 (10:39→22:01)
[2019-01-14] MEDS: LACTOBACILLUS ACIDOPHILUS 1 TABLET PO SCH (10:39)
[2019-01-14] MEDS: HEPARIN NA (PORCINE) 5,000 UNITS/ML 1ML VIAL SQ SCH ×2 (10:39→22:01)
[2019-01-14] MEDS: CALCIUM 500MG/VIT-D 200 UNITS COMBO TABLET (FP) PO SCH (10:40)
[2019-01-14] MEDS: ZINC SULFATE 220 MG CAPSULE (FP) PO SCH ×2 (10:40→11:51)
[2019-01-14] MEDS: FENOFIBRIC ACID 45 MG CAP PO SCH (10:41)
[2019-01-14] MEDS ORDERED: INSULIN (NOVOLOG) ASPART 100 UNITS/ML 10ML VIAL ONE (11:38)
--- NOTE | 2019-01-14 11:41 | PN ---
Physical Exam: SUBJECTIVE: Patient seen and examined Resting in bed NAD. afebrile hemodynamically stable, no acute events. denies pain. States LLE is less swollen. tolerating PO. denies f/c, sob, cough, cp, n/v /d/c. OBJECTIVE: Vital Signs Period Temp Pulse Resp BP Sys/Torre Pulse Ox Last 24 Hr 97.6 F-98.5 F 47-88 18-18 134-149/55-68 98 GENERAL: The patient is awake, alert, and fully oriented, in no acute distress. HEAD: Normal with no signs of trauma. EYES: extraocular movements intact, sclera anicteric, conjunctiva clear. No ptosis. ENT: moist mucous membranes. NECK: supple. LUNGS: Breath sounds equal, clear to auscultation bilaterally, no wheezes, no crackles, no accessory muscle use. HEART: Regular rate and rhythm, S1, S2 ABDOMEN: Soft, nontender, nondistended, normoactive bowel sounds, EXTREMITIES: LLE 2+ pitting edema up to mid calf, mild erythema, 1st toe edematus and erythematous, with ventral lesions. clean dressing applied. warm, well perfused NEUROLOGICAL: Cranial nerves II through XII grossly intact. Normal speech, gait not observed. PSYCH: Normal mood, normal affect. SKIN: Warm, dry, normal turgor, no rashes or lesions noted Laboratory Results - last 24 hr 01/12/19 01/13/19 01/13/19 12:15 12:08 17:30 WBC RBC Hgb Hct MCV MCH MCHC RDW Plt Count MPV Absolute Neuts (auto) Neutrophils % Lymphocytes % Monocytes % Eosinophils % Basophils % Nucleated RBC % POC Glucometer 163 131 Blood Type O POSITIVE 01/13/19 01/14/19 01/14/19 22:03 06:57 09:45 WBC 6.1 RBC 3.55 L Hgb 9.3 L Hct 28.7 L MCV 80.7 MCH 26.1 MCHC 32.3 RDW 15.3 Plt Count 364 MPV 8.3 Absolute Neuts (auto) 3.9 Neutrophils % 64.3 Lymphocytes % 23.5 Monocytes % 7.3 Eosinophils % 3.4 Basophils % 1.5 Nucleated RBC % 0 POC Glucometer 88 149 Blood Type 01/14/19 11:33 WBC RBC Hgb Hct MCV MCH MCHC RDW Plt Count MPV Absolute Neuts (auto) Neutrophils % Lymphocytes % Monocytes % Eosinophils % Basophils % Nucleated RBC % POC Glucometer 212 Blood Type Active Medications Generic Name Dose Route Start Last Admin Trade Name Manas PRN Reason Stop Dose Admin Acetaminophen 650 mg 01/12/19 20:44 Tylenol - PO Q6H PRN FEVER Amlodipine Besylate 10 mg 01/13/19 10:00 01/14/19 10:38 Norvasc - PO 10 mg DAILY [facility] Administration Aspirin 81 mg 01/13/19 10:00 01/14/19 10:39 Asa - PO 81 mg DAILY [facility] Administration Calcium Carbonate/Cholecalciferol 1 tab 01/13/19 10:00 01/14/19 10:40 Os-Oskar 500+D - PO Not Given DAILY [facility] Clopidogrel Bisulfate 75 mg 01/13/19 10:00 01/14/19 10:39 Plavix - PO 75 mg DAILY [facility] Administration Docusate Sodium 100 mg 01/12/19 20:43 Colace - PO DAILY PRN CONSTIPATION Fenofibric Acid 45 mg 01/13/19 10:00 01/14/19 10:41 Trilipix - PO 45 mg DAILY [facility] Administration Heparin Sodium (Porcine) 5,000 unit 01/12/19 22:00 01/14/19 10:39 Heparin - SQ 5,000 unit BID [facility] Administration Hydralazine HCl 10 mg 01/12/19 22:00 01/14/19 06:51 Apresoline - PO Not Given TID [facility] Piperacillin Sod/Tazobactam 50 mls @ 100 mls/hr 01/13/19 18:00 01/14/19 10:40 Sod 3.375 gm/ Dextrose IVPB 100 mls/hr Q8H-IV [facility] Administration Protocol Insulin Aspart 1 vial 01/12/19 22:00 01/14/19 07:00 Novolog Vial Sliding Scale - SQ Not Given ACHS [facility] Protocol Lactobacillus Acidophilus 1 tab 01/13/19 10:00 01/14/19 10:39 Bacid - PO 1 tab DAILY [facility] Administration Levothyroxine Sodium 112 mcg 01/13/19 07:00 01/14/19 08:13 Synthroid - PO 112 mcg DAILY@0700 [facility] Administration Lisinopril 20 mg 01/12/19 22:00 01/14/19 10:39 Prinivil PO 20 mg BID [facility] Administration Senna 1 tab 01/12/19 20:43 Senna - PO DAILY PRN CONSTIPATION Vancomycin HCl 1,000 mg 01/13/19 19:00 01/13/19 22:29 Vancomycin (Pre-Docked) IVPB 1,000 mg DAILY@1900 [facility] Administration Protocol Zinc Sulfate 220 mg 01/13/19 10:00 01/14/19 10:40 Orazinc - PO 220 mg DAILY [facility] Administration ASSESSMENT/PLAN: Left 1st toe ulcers with left LE cellulitis r/o osteomyelitis NIDDM HTN Hypothyrpid -vasclar debrided toe on Tue, pd f/u -XR toe + fracture at the base of the first distal phalanx, needs MRI mon to determine presence of osteo -ID on case: Vanc/zosyn -wound cultures p/d -ISS, BGM ACHS -Continue Lisinopril 20mg BID -Amlodipine 10mg daily -Hydralazine 10mg TID -Continue home Synthroid 112mcg daily -Heparin 5000unit sq bid Visit type - Emergency Visit Emergency Visit: Yes ED Registration Date: 01/12/19 Care time: The patient presented to the Emergency Department on the above date and was hospitalized for further evaluation of their emergent condition. - New Patient This patient is new to me today: No - Critical Care Critical Care patient: No - Discharge Referral Referred to [facility] No
--- NOTE | 2019-01-14 16:52 | PN ---
Teaching Attending Note Name of Resident: Iona Cleaning ATTENDING PHYSICIAN STATEMENT I saw and evaluated the patient. I reviewed the resident's note and discussed the case with the resident. I agree with the resident's findings and plan as documented. SUBJECTIVE: Patient is comfortable with no acute distress. OBJECTIVE: Vital Signs Temperature 98.2 F 01/14/19 13:52 Pulse Rate 52 L 01/14/19 13:52 Respiratory Rate 18 01/14/19 13:52 Blood Pressure 149/60 01/14/19 13:52 O2 Sat by Pulse Oximetry (%) 96 01/14/19 09:00 GENERAL: Awake, alert, and fully oriented, in no acute distress. HEAD: Normal with no signs of trauma. EYES: PERRLA, EOMI, sclera anicteric, conjunctiva clear. EARS, NOSE, THROAT: oropharynx clear without exudates. Moist mucous membranes. NECK: Normal range of motion, supple without lymphadenopathy, JVD, or masses. LUNGS: Breath sounds equal, clear to auscultation bilaterally. HEART: Regular rate and rhythm, normal S1 and S2 without murmur, rub or gallop. ABDOMEN: Soft, nontender, ND, , normoactive bowel sounds. EXTREMITIES: 2+ pulses, warm, No peripheral edema. LLE:improving erythema up to mid-jefferson of left foot. big toe is swollen with open ulcers on the plantar surface of the toe with purulent drainage from the big toe improving. NEUROLOGICAL: Cranial nerves II-XII intact. Normal speech. Gait not observed. PSYCHIATRIC: Cooperative. Good eye contact. Appropriate mood and affect. SKIN: Warm, dry, normal turgor, no rashes or lesions noted. CBCD WBC 6.1 K/mm3 (4.0-10.0) 01/14/19 09:45 RBC 3.55 M/mm3 (3.60-5.2) L 01/14/19 09:45 Hgb 9.3 GM/dL (10.7-15.3) L 01/14/19 09:45 Hct 28.7 % (32.4-45.2) L 01/14/19 09:45 MCV 80.7 fl (80-96) 01/14/19 09:45 MCHC 32.3 g/dl (32.0-36.0) 01/14/19 09:45 RDW 15.3 % (11.6-15.6) 01/14/19 09:45 Plt Count 364 K/MM3 (134-434) 01/14/19 09:45 MPV 8.3 fl (7.5-11.1) 01/14/19 09:45 CMP Sodium 142 mmol/L (136-145) 01/13/19 06:45 Potassium 4.3 mmol/L (3.5-5.1) 01/13/19 06:45 Chloride 110 mmol/L (98-107) H 01/13/19 06:45 Carbon Dioxide 26 mmol/L (21-32) 01/13/19 06:45 Anion Gap 6 MMOL/L (8-16) L 01/13/19 06:45 BUN 17 mg/dL (7-18) 01/13/19 06:45 Creatinine 0.9 mg/dL (0.55-1.3) 01/13/19 06:45 Creat Clearance w eGFR 60.09 (>60) 01/13/19 06:45 Random Glucose 117 mg/dL (74-106) H 01/13/19 06:45 Calcium 8.4 mg/dL (8.5-10.1) L 01/13/19 06:45 Total Bilirubin 0.2 mg/dL (0.2-1) 01/13/19 06:45 AST 9 U/L (15-37) L 01/13/19 06:45 ALT 9 U/L (13-61) L 01/13/19 06:45 Alkaline Phosphatase 71 U/L (45-117) 01/13/19 06:45 Total Protein 5.9 g/dl (6.4-8.2) L 01/13/19 06:45 Albumin 2.6 g/dl (3.4-5.0) L 01/13/19 06:45 Current Medications Generic Name Dose Route Start Last Admin Trade Name Freq PRN Reason Stop Dose Admin Acetaminophen 650 mg 01/12/19 20:44 Tylenol - PO Q6H PRN FEVER Amlodipine Besylate 10 mg 01/13/19 10:00 01/14/19 10:38 Norvasc - PO 10 mg DAILY LETICIA Administration Aspirin 81 mg 01/13/19 10:00 01/14/19 10:39 Asa - PO 81 mg DAILY LETICIA Administration Calcium Carbonate/Cholecalciferol 1 tab 01/13/19 10:00 01/14/19 10:40 Os-Oskar 500+D - PO Not Given DAILY LETICIA Clopidogrel Bisulfate 75 mg 01/13/19 10:00 01/14/19 10:39 Plavix - PO 75 mg DAILY LETICIA Administration Docusate Sodium 100 mg 01/12/19 20:43 Colace - PO DAILY PRN CONSTIPATION Fenofibric Acid 45 mg 01/13/19 10:00 01/14/19 10:41 Trilipix - PO 45 mg DAILY LETICIA Administration Heparin Sodium (Porcine) 5,000 unit 01/12/19 22:00 01/14/19 10:39 Heparin - SQ 5,000 unit BID LETICIA Administration Hydralazine HCl 10 mg 01/12/19 22:00 01/14/19 15:26 Apresoline - PO 10 mg TID LETICIA Administration Piperacillin Sod/Tazobactam 50 mls @ 100 mls/hr 01/13/19 18:00 01/14/19 10:40 Sod 3.375 gm/ Dextrose IVPB 100 mls/hr Q8H-IV LETICIA Administration Protocol Insulin Aspart 1 vial 01/12/19 22:00 01/14/19 11:42 Novolog Vial Sliding Scale - SQ 4 units ACHS LETICIA Administration Protocol Lactobacillus Acidophilus 1 tab 01/13/19 10:00 01/14/19 10:39 Bacid - PO 1 tab DAILY LETICIA Administration Levothyroxine Sodium 112 mcg 01/13/19 07:00 01/14/19 08:13 Synthroid - PO 112 mcg DAILY@0700 LETICIA Administration Lisinopril 20 mg 01/12/19 22:00 01/14/19 10:39 Prinivil PO 20 mg BID LETICIA Administration Senna 1 tab 01/12/19 20:43 Senna - PO DAILY PRN CONSTIPATION Vancomycin HCl 1,000 mg 01/13/19 19:00 01/13/19 22:29 Vancomycin (Pre-Docked) IVPB 1,000 mg DAILY@1900 [facility] Administration Protocol Zinc Sulfate 220 mg 01/13/19 10:00 01/14/19 11:51 Orazinc - PO Not Given DAILY [facility] Home Medications Medication Instructions Recorded Ascorbic Acid [Vitamin C] 500 mg PO DAILY 01/12/19 Aspirin [ASA -] 1 tab PO DAILY 01/12/19 Calcium Carbonate/Vitamin D3 1 tab PO DAILY 01/12/19 [Calcium 500-Vit D3 600 Tablet] Clopidogrel Bisulfate [Plavix] 1 tab PO DAILY 01/12/19 Docusate Sodium [Colace] 1 tab PO DAILY PRN 01/12/19 Lactobacillus Acidophilus [Bacid -] 1 tab PO DAILY 01/12/19 Meloxicam [Mobic] 15 mg PO DAILY 01/12/19 RX: Amlodipine Besylate 1 tab PO DAILY 01/12/19 RX: Fenofibrate 40 mg PO DAILY 01/12/19 RX: Glipizide 1 tab PO BID 01/12/19 RX: Hydralazine HCl 10 mg PO TID 01/12/19 RX: Levothyroxine [Synthroid -] 1 tab PO DAILY 01/12/19 RX: Lisinopril 20 mg PO BID 01/12/19 Sennosides [Senna Laxative] 1 tab PO DAILY PRN 01/12/19 Zinc Sulfate [Zinc-15] 66 mg PO DAILY 01/12/19 Microbiology 01/13/19 14:48 Blood - Peripheral Venous Blood Culture - Preliminary NO GROWTH OBTAINED AFTER 24 HOURS, INCUBATION TO CONTINUE FOR 4 DAYS. 01/13/19 14:58 Blood - Peripheral Venous Blood Culture - Preliminary NO GROWTH OBTAINED AFTER 24 HOURS, INCUBATION TO CONTINUE FOR 4 DAYS. 01/13/19 Unknown Abscess Gram Stain - Final 01/13/19 Unknown Abscess Wound Culture - Preliminary ASSESSMENT AND PLAN: Patient is an 83 year old female with past medical history of DM, HTN, HLD, hypothyroidism, presented from wound care clinic due to left great toe ulcers. #Left great toe ulcers with left LE cellulitis with osteomyelitis on IV Zosyn and Vanco day #2 continue ,ID on the case, wound cx done follow up with the result. -Tylenol PRN for pain #T2DM continue with sliding scale with coverage , Glipizide and metfromin is on hold. HbA1c ordered #Hypertension continue Lisinopril 20mg BID/Amlodipine 10mg daily/Hydralazine 10mg TID #Hypothyroidism continue home Synthroid 112mcg daily Dvt Prophylaxis: Heparin 5000unit sq bid -full code -med surg
[2019-01-14] MEDS: VANCOMYCIN 1 GM in D5W (PRE-DOCKED) 1,000 MG/250 ML IVPB SCH (18:45)
[2019-01-15] MEDS ORDERED: PIPERACILLIN/TAZOBACTAM 3.375 GM VIAL IVPB ONE ×3 (01:23→17:33)
[2019-01-15] MEDS ORDERED: DEXTROSE 5%-WATER - 50 ML IVPB ONE ×3 (01:24→17:33)
[2019-01-15] MEDS: PIPERACILLIN/TAZOB 3.375 GM 3.375 GM in DEXTROSE 5%-WATER - 50 ML IVPB SCH ×3 (02:34→17:40)
[2019-01-15] MEDS: INSULIN SLIDING SCALE (NOVOLOG) 1 VIAL SQ SCH ×4 (06:43→21:33)
[2019-01-15] MEDS: hydrALAZINE HCL 10 MG TABLET PO SCH ×3 (06:43→21:33)
[2019-01-15] MEDS: LEVOTHYROXINE NA 112 MCG TABLET (FP) PO SCH (06:43)
[2019-01-15 06:53] LABS: BASO % 1.4 % (0-2.0); EOS % 2.9 % (0-4.5); HEMATOCRIT 27.1 % (32.4-45.2); HEMOGLOBIN 8.7 GM/dL (10.7-15.3); LYMPH % 23.5 % (8-40); MCHC 32.2 g/dl (32.0-36.0); MEAN CELL VOLUME 80.8 fl (80-96); MEAN PLT VOLUME 7.9 fl (7.5-11.1); MONO % 6.9 % (3.8-10.2); NEUT % 65.3 % (42.8-82.8); PLATELET COUNT 369 K/MM3 (134-434); RBC 3.36 M/mm3 (3.60-5.2); RDW 15.5 % (11.6-15.6); WHITE BLOOD COUNT 7.2 K/mm3 (4.0-10.0)
[2019-01-15] MEDS: LISINOPRIL 20 MG TABLET (FP) PO SCH ×2 (10:02→21:33)
[2019-01-15] MEDS: amLODIPine BESYLATE 10 MG TABLET (FP) PO SCH (10:02)
[2019-01-15] MEDS: CALCIUM 500MG/VIT-D 200 UNITS COMBO TABLET (FP) PO SCH (10:02)
[2019-01-15] MEDS: ASPIRIN 81 MG CHEWABLE TABLETS PO SCH (10:02)
[2019-01-15] MEDS: HEPARIN NA (PORCINE) 5,000 UNITS/ML 1ML VIAL SQ SCH ×2 (10:02→21:33)
[2019-01-15] MEDS: ZINC SULFATE 220 MG CAPSULE (FP) PO SCH (10:02)
[2019-01-15] MEDS: LACTOBACILLUS ACIDOPHILUS 1 TABLET PO SCH (10:02)
[2019-01-15] MEDS: CLOPIDOGREL BISULFATE 75 MG TABLET (FP) PO SCH (10:02)
[2019-01-15] MEDS: FENOFIBRIC ACID 45 MG CAP PO SCH (10:03)
--- NOTE | 2019-01-15 10:38 | EKG ---
Test Reason : Blood Pressure : / mmHG Vent. Rate : 054 BPM Atrial Rate : 054 BPM P-R Int : 156 ms QRS Dur : 082 ms QT Int : 486 ms P-R-T Axes : -68 029 046 degrees QTc Int : 460 ms UNUSUAL P AXIS, POSSIBLE ECTOPIC ATRIAL BRADYCARDIA ABNORMAL ECG NO PREVIOUS ECGS AVAILABLE Confirmed by RACHANA ZHU, BERNARDO ([id number]) on 01/15/2019 10:37:50 AM Referred By: Confirmed By:BERNARDO REICH MD
--- NOTE | 2019-01-15 10:53 | PN ---
Progress Note (short form) - Note Progress Note: Vascular surgery Pt seen and examined in [facility] on tuesday. Left great toe wound. Pus expressed from the wound. Cx's taken. MRI pending. Will order CTA to check circulation down to foot. Might need toe amputation. Darrion Vasquez DO
--- NOTE | 2019-01-15 14:23 | PN ---
Progress Note (short form) - Note Progress Note: sstill has not had MRI seen by vascular surgery this am, for CTA Vital Signs Period Temp Pulse Resp BP Sys/Torre Pulse Ox Last 24 Hr 98.0 F-98.3 F 47-52 16-20 135-153/50-66 96-96 cor-rrr lungs clear abd soft,nt ext big toe with purulent drainage erythema of the left leg is improved CBC, BMP 01/15/19 06:10 01/13/19 06:45 Microbiology 01/13/19 Unknown Abscess Gram Stain - Final 01/13/19 Unknown Abscess Wound Culture - Preliminary Alpha Hemolytic Streptococcus Pending Organism Pending Organism#2 01/13/19 14:48 Blood - Peripheral Venous Blood Culture - Preliminary NO GROWTH OBTAINED AFTER 24 HOURS, INCUBATION TO CONTINUE FOR 4 DAYS. 01/13/19 14:58 Blood - Peripheral Venous Blood Culture - Preliminary NO GROWTH OBTAINED AFTER 24 HOURS, INCUBATION TO CONTINUE FOR 4 DAYS. xray with fracture of big toe and probable destruction of the toe a/p cellulitis of the LLE possible abscess of the big toe r/o osteomyelitis await MRI vancomycin and zosyn await cultures of the foot Problem List - Problems (1) Left leg cellulitis Code(s): L03.116 - CELLULITIS OF LEFT LOWER LIMB (2) Type 2 diabetes mellitus with foot ulcer Code(s): E11.621 - TYPE 2 DIABETES MELLITUS WITH FOOT ULCER; L97.509 - NON- PRESSURE CHRONIC ULCER OTH PRT UNSP FOOT W UNSP SEVERITY (3) Osteomyelitis Code(s): M86.9 - OSTEOMYELITIS, UNSPECIFIED
--- NOTE | 2019-01-15 15:55 | PN ---
Physical Exam: SUBJECTIVE: Patient seen and examined at bedside this morning. No acute events overnight. Patient has no new complaints. She reports walking with a walker with minimal discomfort. Patient denies fever, chills, headache, chest pain, SOB , abdominal pain, diarrhea, urinary symptoms. OBJECTIVE: Vital Signs Temperature 98.1 F 01/15/19 13:09 Pulse Rate 47 L 01/15/19 13:09 Respiratory Rate 16 01/15/19 13:09 Blood Pressure 142/61 01/15/19 13:09 O2 Sat by Pulse Oximetry (%) 96 01/15/19 09:00 GENERAL: Awake, alert, and fully oriented, in no acute distress. HEAD: Normal with no signs of trauma. EYES: PERRLA, EOMI, sclera anicteric, conjunctiva clear. EARS, NOSE, THROAT: oropharynx clear without exudates. Moist mucous membranes. NECK: Normal range of motion, supple without lymphadenopathy, JVD, or masses. LUNGS: Breath sounds equal, clear to auscultation bilaterally. HEART: Regular rate and rhythm, normal S1 and S2 without murmur, rub or gallop. ABDOMEN: Soft, nontender, not distended, normoactive bowel sounds. MUSCULOSKELETAL: Normal range of motion at all joints. UPPER EXTREMITIES: 2+ pulses, warm, well-perfused. No peripheral edema. LOWER EXTREMITIES: 2+ pulses, warm, well-perfused. No peripheral edema. LLE: + erythema (improved), no warmth or tenderness, +multiple ulcers on plantar side of left great toe. NEUROLOGICAL: Cranial nerves II-XII intact. Normal speech. Gait not observed. PSYCHIATRIC: Cooperative. Good eye contact. Appropriate mood and affect. SKIN: Warm, dry, normal turgor, no rashes or lesions noted. Laboratory Results - last 24 hr 01/14/19 01/14/19 01/15/19 17:35 21:31 06:10 WBC 7.2 RBC 3.36 L Hgb 8.7 L Hct 27.1 L MCV 80.8 MCH 26.0 MCHC 32.2 RDW 15.5 Plt Count 369 MPV 7.9 Absolute Neuts (auto) 4.7 Neutrophils % 65.3 Lymphocytes % 23.5 Monocytes % 6.9 Eosinophils % 2.9 Basophils % 1.4 Nucleated RBC % 0 POC Glucometer 140 179 01/15/19 01/15/19 06:36 11:59 WBC RBC Hgb Hct MCV MCH MCHC RDW Plt Count MPV Absolute Neuts (auto) Neutrophils % Lymphocytes % Monocytes % Eosinophils % Basophils % Nucleated RBC % POC Glucometer 155 187 Active Medications Generic Name Dose Route Start Last Admin Trade Name Freq PRN Reason Stop Dose Admin Acetaminophen 650 mg 01/12/19 20:44 Tylenol - PO Q6H PRN FEVER Amlodipine Besylate 10 mg 01/13/19 10:00 01/15/19 10:02 Norvasc - PO 10 mg DAILY LETICIA Administration Aspirin 81 mg 01/13/19 10:00 01/15/19 10:02 Asa - PO 81 mg DAILY LETICIA Administration Calcium Carbonate/Cholecalciferol 1 tab 01/13/19 10:00 01/15/19 10:02 Os-Oskar 500+D - PO 1 tab DAILY ELTICIA Administration Clopidogrel Bisulfate 75 mg 01/13/19 10:00 01/15/19 10:02 Plavix - PO 75 mg DAILY LETICIA Administration Docusate Sodium 100 mg 01/12/19 20:43 Colace - PO DAILY PRN CONSTIPATION Fenofibric Acid 45 mg 01/13/19 10:00 01/15/19 10:03 Trilipix - PO 45 mg DAILY LETICIA Administration Heparin Sodium (Porcine) 5,000 unit 01/12/19 22:00 01/15/19 10:02 Heparin - SQ 5,000 unit BID LETICIA Administration Hydralazine HCl 10 mg 01/12/19 22:00 01/15/19 15:19 Apresoline - PO 10 mg TID LETICIA Administration Piperacillin Sod/Tazobactam 50 mls @ 100 mls/hr 01/13/19 18:00 01/15/19 10:01 Sod 3.375 gm/ Dextrose IVPB 100 mls/hr Q8H-IV LETICIA Administration Protocol Insulin Aspart 1 vial 01/12/19 22:00 01/15/19 12:02 Novolog Vial Sliding Scale - SQ 2 units ACHS LETICIA Administration Protocol Lactobacillus Acidophilus 1 tab 01/13/19 10:00 01/15/19 10:02 Bacid - PO 1 tab DAILY LETICIA Administration Levothyroxine Sodium 112 mcg 01/13/19 07:00 01/15/19 06:43 Synthroid - PO 112 mcg DAILY@0700 LETICIA Administration Lisinopril 20 mg 01/12/19 22:00 04/15/19 10:02 Prinivil PO 20 mg BID LETICIA Administration Senna 1 tab 01/12/19 20:43 Senna - PO DAILY PRN CONSTIPATION Vancomycin HCl 1,000 mg 01/13/19 19:00 01/14/19 18:45 Vancomycin (Pre-Docked) IVPB 1,000 mg DAILY@1900 LETICIA Administration Protocol Zinc Sulfate 220 mg 01/13/19 10:00 01/15/19 10:02 Orazinc - PO 220 mg DAILY LETICIA Administration -Left foot xray: Slightly displaced fracture at the base of the first distal phalanx, medially involving the articular surface. Significant osteopenia is limiting evaluation of the bone and focal bone destruction within the lateral aspect of the first distal phalanx could not be entirely excluded. Significant soft tissue swelling. ASSESSMENT/PLAN: Patient is an 83 year old female with past medical history of DM, HTN, HLD, hypothyroidism, presented from wound care clinic due to left great toe ulcers. #Left great toe ulcers with left LE cellulitis, rule out osteomyelitis -Debridement done at the wound care clinic today. -Wound cultures - alpha hemolytic strep, 2 more pending organisms -MRI pending -Vascular surgery (Dr. Vasquez) consulted. Recommendations appreciated. -will order CTA to check circulation down to foot -might need amputation. -ID (Dr. Young) consulted. -Will continue Vanc/Zosyn (Day 4) pending culture -Tylenol PRN for pain #DM -Will hold Metformin and Glipizide -HbA1c - 7.8 -Insulin sliding scale -BGM ACHS #Hypertension -Continue Lisinopril 20mg BID -Amlodipine 10mg daily -Hydralazine 10mg TID #Hypothyroidism -Continue home Synthroid 112mcg daily #FEN -Not on any standing fluids -Encourage increased oral fluid intake -Electrolytes wnl, routine bmp monitoring -Diabetic diet #Prophylaxis -Heparin 5000unit sq bid #disposition -full code -med surg Visit type - Emergency Visit Emergency Visit: Yes ED Registration Date: 01/12/19 Care time: The patient presented to the Emergency Department on the above date and was hospitalized for further evaluation of their emergent condition. - New Patient This patient is new to me today: No - Critical Care Critical Care patient: No
--- NOTE | 2019-01-15 17:50 | PN ---
Teaching Attending Note Name of Resident: Arti Chong ATTENDING PHYSICIAN STATEMENT I saw and evaluated the patient. I reviewed the resident's note and discussed the case with the resident. I agree with the resident's findings and plan as documented. SUBJECTIVE: Patient is feeling better, no fever or chills no shortness of breath. OBJECTIVE: Vital Signs Temperature 98.1 F 01/15/19 13:09 Pulse Rate 47 L 01/15/19 13:09 Respiratory Rate 16 01/15/19 13:09 Blood Pressure 142/61 01/15/19 13:09 O2 Sat by Pulse Oximetry (%) 96 01/15/19 09:00 GENERAL: Awake, alert, and fully oriented, in no acute distress. HEAD: Normal with no signs of trauma. EYES: PERRLA, EOMI, sclera anicteric, conjunctiva clear. EARS, NOSE, THROAT: oropharynx clear without exudates. Moist mucous membranes. NECK: Normal range of motion, supple without lymphadenopathy, JVD, or masses. LUNGS: Breath sounds equal, clear to auscultation bilaterally. HEART: Regular rate and rhythm, normal S1 and S2 without murmur, rub or gallop. ABDOMEN: Soft, nontender, ND, , normoactive bowel sounds. EXTREMITIES: 2+ pulses, warm, No peripheral edema. LLE:improving erythema up to mid-jefferson of left foot. big toe is swollen with open ulcers on the plantar surface of the toe with purulent drainage from the big toe improving. NEUROLOGICAL: Cranial nerves II-XII intact. Normal speech. Gait not observed. PSYCHIATRIC: Cooperative. Good eye contact. Appropriate mood and affect. SKIN: Warm, dry, normal turgor, no rashes or lesions noted. CBCD WBC 7.2 K/mm3 (4.0-10.0) 01/15/19 06:10 RBC 3.36 M/mm3 (3.60-5.2) L 01/15/19 06:10 Hgb 8.7 GM/dL (10.7-15.3) L 01/15/19 06:10 Hct 27.1 % (32.4-45.2) L 01/15/19 06:10 MCV 80.8 fl (80-96) 01/15/19 06:10 MCHC 32.2 g/dl (32.0-36.0) 01/15/19 06:10 RDW 15.5 % (11.6-15.6) 01/15/19 06:10 Plt Count 369 K/MM3 (134-434) 01/15/19 06:10 MPV 7.9 fl (7.5-11.1) 01/15/19 06:10 CMP Sodium 142 mmol/L (136-145) 01/13/19 06:45 Potassium 4.3 mmol/L (3.5-5.1) 01/13/19 06:45 Chloride 110 mmol/L (98-107) H 01/13/19 06:45 Carbon Dioxide 26 mmol/L (21-32) 01/13/19 06:45 Anion Gap 6 MMOL/L (8-16) L 01/13/19 06:45 BUN 17 mg/dL (7-18) 01/13/19 06:45 Creatinine 0.9 mg/dL (0.55-1.3) 01/13/19 06:45 Creat Clearance w eGFR 60.09 (>60) 01/13/19 06:45 Random Glucose 117 mg/dL (74-106) H 01/13/19 06:45 Calcium 8.4 mg/dL (8.5-10.1) L 01/13/19 06:45 Total Bilirubin 0.2 mg/dL (0.2-1) 01/13/19 06:45 AST 9 U/L (15-37) L 01/13/19 06:45 ALT 9 U/L (13-61) L 01/13/19 06:45 Alkaline Phosphatase 71 U/L (45-117) 01/13/19 06:45 Total Protein 5.9 g/dl (6.4-8.2) L 01/13/19 06:45 Albumin 2.6 g/dl (3.4-5.0) L 01/13/19 06:45 Current Medications Generic Name Dose Route Start Last Admin Trade Name Freq PRN Reason Stop Dose Admin Acetaminophen 650 mg 01/12/19 20:44 Tylenol - PO Q6H PRN FEVER Amlodipine Besylate 10 mg 01/13/19 10:00 01/15/19 10:02 Norvasc - PO 10 mg DAILY LETICIA Administration Aspirin 81 mg 01/13/19 10:00 01/15/19 10:02 Asa - PO 81 mg DAILY LETICIA Administration Calcium Carbonate/Cholecalciferol 1 tab 01/13/19 10:00 01/15/19 10:02 Os-Oskar 500+D - PO 1 tab DAILY LETICIA Administration Clopidogrel Bisulfate 75 mg 01/13/19 10:00 01/15/19 10:02 Plavix - PO 75 mg DAILY LETICIA Administration Docusate Sodium 100 mg 01/12/19 20:43 Colace - PO DAILY PRN CONSTIPATION Fenofibric Acid 45 mg 01/13/19 10:00 01/15/19 10:03 Trilipix - PO 45 mg DAILY LETICIA Administration Heparin Sodium (Porcine) 5,000 unit 01/12/19 22:00 01/15/19 10:02 Heparin - SQ 5,000 unit BID LETICIA Administration Hydralazine HCl 10 mg 01/12/19 22:00 01/15/19 15:19 Apresoline - PO 10 mg TID LETICIA Administration Piperacillin Sod/Tazobactam 50 mls @ 100 mls/hr 01/13/19 18:00 01/15/19 17:40 Sod 3.375 gm/ Dextrose IVPB 100 mls/hr Q8H-IV LETICIA Administration Protocol Insulin Aspart 1 vial 01/12/19 22:00 01/15/19 17:41 Novolog Vial Sliding Scale - SQ 2 units ACHS LETICIA Administration Protocol Lactobacillus Acidophilus 1 tab 01/13/19 10:00 01/15/19 10:02 Bacid - PO 1 tab DAILY LETICIA Administration Levothyroxine Sodium 112 mcg 01/13/19 07:00 01/15/19 06:43 Synthroid - PO 112 mcg DAILY@0700 LETICIA Administration Lisinopril 20 mg 01/12/19 22:00 01/15/19 10:02 Prinivil PO 20 mg BID LETICIA Administration Senna 1 tab 01/12/19 20:43 Senna - PO DAILY PRN CONSTIPATION Vancomycin HCl 1,000 mg 01/13/19 19:00 01/14/19 18:45 Vancomycin (Pre-Docked) IVPB 1,000 mg DAILY@1900 LETICIA Administration Protocol Zinc Sulfate 220 mg 01/13/19 10:00 01/15/19 10:02 Orazinc - PO 220 mg DAILY LETICIA Administration ASSESSMENT AND PLAN: Patient is an 83 year old female with past medical history of DM, HTN, HLD, hypothyroidism, presented from wound care clinic due to left great toe ulcers. #Left great toe ulcers with left LE cellulitis r/o osteomyelitis on IV Zosyn and Vanco day #3 continue ,ID on the case, wound cx done follow up with the result. -Tylenol PRN for pain, as per Dr. Vasquez , MRI pending. Dr. Vasquez will order CTA to check circulation down to foot. Might need toe amputation. #T2DM continue with sliding scale with coverage , Glipizide and metfromin is on hold. HbA1c ordered #Hypertension continue Lisinopril 20mg BID/Amlodipine 10mg daily/Hydralazine 10mg TID #Hypothyroidism continue home Synthroid 112mcg daily Dvt Prophylaxis: Heparin 5000unit sq bid -full code -med surg
[2019-01-15] MEDS ORDERED: PT OWN MED DRAWER 7, Y5N ONE ×2 (18:39→19:05)
[2019-01-15] MEDS ORDERED: INSULIN (NOVOLOG) ASPART 100 UNITS/ML 10ML VIAL ONE (21:15)
[2019-01-15] MEDS: VANCOMYCIN 1 GM in D5W (PRE-DOCKED) 1,000 MG/250 ML IVPB SCH (21:32)
[2019-01-16] MEDS ORDERED: DEXTROSE 5%-WATER - 50 ML IVPB ONE ×3 (01:24→16:24)
[2019-01-16] MEDS ORDERED: PIPERACILLIN/TAZOBACTAM 3.375 GM VIAL IVPB ONE ×3 (01:24→16:24)
[2019-01-16] MEDS: PIPERACILLIN/TAZOB 3.375 GM 3.375 GM in DEXTROSE 5%-WATER - 50 ML IVPB SCH ×3 (01:57→17:16)
[2019-01-16] MEDS: hydrALAZINE HCL 10 MG TABLET PO SCH ×3 (06:44→22:10)
[2019-01-16] MEDS: INSULIN SLIDING SCALE (NOVOLOG) 1 VIAL SQ SCH ×4 (06:44→22:11)
[2019-01-16] MEDS: LEVOTHYROXINE NA 112 MCG TABLET (FP) PO SCH (06:44)
[2019-01-16 08:14] LABS: BASO % 1.1 % (0-2.0); EOS % 3.3 % (0-4.5); HEMATOCRIT 27.4 % (32.4-45.2); LYMPH % 23.8 % (8-40); MCH 26.4 pg (25.7-33.7); MCHC 32.9 g/dl (32.0-36.0); MEAN PLT VOLUME 8.3 fl (7.5-11.1); MONO % 7.2 % (3.8-10.2); NEUT % 64.6 % (42.8-82.8); PLATELET COUNT 373 K/MM3 (134-434); RBC 3.43 M/mm3 (3.60-5.2); RDW 15.1 % (11.6-15.6); WHITE BLOOD COUNT 6.4 K/mm3 (4.0-10.0)
--- NOTE | 2019-01-16 09:25 | PN ---
Physical Exam: SUBJECTIVE: Patient seen and examined at bedside this morning. No acute events overnight. Patient is resting comfortably in bed, with no complaints. OBJECTIVE: Vital Signs Temperature 97.8 F 01/16/19 06:15 Pulse Rate 48 L 01/16/19 06:15 Respiratory Rate 20 01/16/19 06:15 Blood Pressure 138/51 L 01/16/19 06:15 O2 Sat by Pulse Oximetry (%) 97 01/15/19 21:00 GENERAL: Awake, alert, and fully oriented, in no acute distress. HEAD: Normal with no signs of trauma. EYES: PERRLA, EOMI, sclera anicteric, conjunctiva clear. EARS, NOSE, THROAT: oropharynx clear without exudates. Moist mucous membranes. NECK: Normal range of motion, supple LUNGS: Breath sounds equal, clear to auscultation bilaterally. HEART: Bradycardia, normal S1 and S2 ABDOMEN: Soft, nontender, not distended, normoactive bowel sounds. MUSCULOSKELETAL: Normal range of motion at all joints. UPPER EXTREMITIES: 2+ pulses, warm, well-perfused. No peripheral edema. LOWER EXTREMITIES: 2+ pulses, warm, well-perfused. No peripheral edema. LLE: + erythema (improved), no warmth or tenderness, +multiple ulcers on plantar side of left great toe. NEUROLOGICAL: Cranial nerves II-XII intact. Normal speech. Gait not observed. PSYCHIATRIC: Cooperative. Good eye contact. Appropriate mood and affect. SKIN: Warm, dry, normal turgor, no rashes or lesions noted. Laboratory Results - last 24 hr 01/15/19 01/15/19 01/15/19 11:59 16:45 17:40 WBC RBC Hgb Hct MCV MCH MCHC RDW Plt Count MPV Absolute Neuts (auto) Neutrophils % Lymphocytes % Monocytes % Eosinophils % Basophils % Nucleated RBC % POC Glucometer 187 180 Vancomycin Pre-Dose 7.7 L 01/15/19 01/16/19 01/16/19 21:31 06:42 07:30 WBC 6.4 RBC 3.43 L Hgb 9.0 L Hct 27.4 L MCV 80.0 MCH 26.4 MCHC 32.9 RDW 15.1 Plt Count 373 MPV 8.3 Absolute Neuts (auto) 4.1 Neutrophils % 64.6 Lymphocytes % 23.8 Monocytes % 7.2 Eosinophils % 3.3 Basophils % 1.1 Nucleated RBC % 0 POC Glucometer 215 160 Vancomycin Pre-Dose Active Medications Generic Name Dose Route Start Last Admin Trade Name Freq PRN Reason Stop Dose Admin Acetaminophen 650 mg 01/12/19 20:44 Tylenol - PO Q6H PRN FEVER Amlodipine Besylate 10 mg 01/13/19 10:00 01/15/19 10:02 Norvasc - PO 10 mg DAILY LETICIA Administration Aspirin 81 mg 01/13/19 10:00 01/15/19 10:02 Asa - PO 81 mg DAILY LETICIA Administration Calcium Carbonate/Cholecalciferol 1 tab 01/13/19 10:00 01/15/19 10:02 Os-Oskar 500+D - PO 1 tab DAILY LETICIA Administration Clopidogrel Bisulfate 75 mg 01/13/19 10:00 01/15/19 10:02 Plavix - PO 75 mg DAILY LETICIA Administration Docusate Sodium 100 mg 01/12/19 20:43 Colace - PO DAILY PRN CONSTIPATION Fenofibric Acid 45 mg 01/13/19 10:00 01/15/19 10:03 Trilipix - PO 45 mg DAILY LETICIA Administration Heparin Sodium (Porcine) 5,000 unit 01/12/19 22:00 01/15/19 21:33 Heparin - SQ Not Given BID LETICIA Hydralazine HCl 10 mg 01/12/19 22:00 01/16/19 06:44 Apresoline - PO 10 mg TID LETICIA Administration Piperacillin Sod/Tazobactam 50 mls @ 100 mls/hr 01/13/19 18:00 01/16/19 01:57 Sod 3.375 gm/ Dextrose IVPB 100 mls/hr Q8H-IV LETICIA Administration Protocol Insulin Aspart 1 vial 01/12/19 22:00 01/16/19 06:44 Novolog Vial Sliding Scale - SQ 2 units ACHS LETICIA Administration Protocol Lactobacillus Acidophilus 1 tab 01/13/19 10:00 01/15/19 10:02 Bacid - PO 1 tab DAILY LETICIA Administration Levothyroxine Sodium 112 mcg 01/13/19 07:00 01/16/19 06:44 Synthroid - PO 112 mcg DAILY@0700 LETICIA Administration Lisinopril 20 mg 01/12/19 22:00 01/15/19 21:33 Prinivil PO 20 mg BID LETICIA Administration Senna 1 tab 01/12/19 20:43 Senna - PO DAILY PRN CONSTIPATION Vancomycin HCl 1,000 mg 01/13/19 19:00 01/15/19 21:32 Vancomycin (Pre-Docked) IVPB 1,000 mg DAILY@1900 LETICIA Administration Protocol Zinc Sulfate 220 mg 01/13/19 10:00 01/15/19 10:02 Orazinc - PO 220 mg DAILY LETICIA Administration -Left foot xray: Slightly displaced fracture at the base of the first distal phalanx, medially involving the articular surface. Significant osteopenia is limiting evaluation of the bone and focal bone destruction within the lateral aspect of the first distal phalanx could not be entirely excluded. Significant soft tissue swelling. -CTA abdomen with BLE runoff: Erosive changes of the first toe on the left with soft tissue edema. Three vessel runoff bilaterally. -Left LE MRI: Severe soft tissue edema of the first toe. Open wound along the plantar lateral aspect of the first toe at the level of the interphalangeal joint with serpiginous fluid collection along the plantar lateral aspect of the toe and proximally is extending medially. Destruction of the distal aspect of the proximal phalanx and the base of the distal phalanx of the first toe with marked bone marrow edema of the proximal and distal phalanges consistent with osteomyelitis. ASSESSMENT/PLAN: Patient is an 83 year old female with past medical history of DM, HTN, HLD, hypothyroidism, presented from wound care clinic due to left great toe ulcers. #Left great toe ulcers with left LE cellulitis -Debridement done at the wound care clinic today. -Wound cultures - alpha hemolytic strep, 2 more pending organisms -MRI of Left LE consistent with osteomyelitis. -Vascular surgery (Dr. Vasquez) consulted. Recommendations appreciated. -CTA done. -might need amputation. -Podiatry (Dr. Marquez) consulted. -ID (Dr. Young) consulted. -Will continue Vanc/Zosyn (Day 5) pending culture -Tylenol PRN for pain #DM -Will hold Metformin and Glipizide -HbA1c - 7.8 -Insulin sliding scale -BGM ACHS #Hypertension -Continue Lisinopril 20mg BID -Amlodipine 10mg daily -Hydralazine 10mg TID #Hypothyroidism -Continue home Synthroid 112mcg daily #FEN -Not on any standing fluids -Encourage increased oral fluid intake -Electrolytes wnl, routine bmp monitoring -Diabetic diet #Prophylaxis -Heparin 5000unit sq bid #disposition -full code -med surg Visit type - Emergency Visit Emergency Visit: Yes ED Registration Date: 01/12/19 Care time: The patient presented to the Emergency Department on the above date and was hospitalized for further evaluation of their emergent condition. - New Patient This patient is new to me today: No - Critical Care Critical Care patient: No
[2019-01-16 10:06] LABS: BLOOD UREA NITROGEN 13 mg/dL (7-18); GLUCOSE,RANDOM 166 mg/dL (74-106)
[2019-01-16] MEDS ORDERED: PT OWN MED DRAWER 7, Y5N ONE (10:10)
[2019-01-16 10:11] LABS: ANION GAP 5 MMOL/L (8-16); CHLORIDE 106 mmol/L (98-107); CO2 26 mmol/L (21-32); POTASSIUM 4.6 mmol/L (3.5-5.1); SODIUM 137 mmol/L (136-145)
[2019-01-16 10:12] LABS: CALCIUM 8.8 mg/dL (8.5-10.1); PHOSPHOROUS 2.9 mg/dL (2.5-4.9)
[2019-01-16] MEDS: amLODIPine BESYLATE 10 MG TABLET (FP) PO SCH (11:36)
[2019-01-16] MEDS: LACTOBACILLUS ACIDOPHILUS 1 TABLET PO SCH (11:36)
[2019-01-16] MEDS: ASPIRIN 81 MG CHEWABLE TABLETS PO SCH (11:36)
[2019-01-16] MEDS: HEPARIN NA (PORCINE) 5,000 UNITS/ML 1ML VIAL SQ SCH ×2 (11:36→22:10)
[2019-01-16] MEDS: CALCIUM 500MG/VIT-D 200 UNITS COMBO TABLET (FP) PO SCH (11:36)
[2019-01-16] MEDS: CLOPIDOGREL BISULFATE 75 MG TABLET (FP) PO SCH (11:36)
[2019-01-16] MEDS: LISINOPRIL 20 MG TABLET (FP) PO SCH ×2 (11:37→22:10)
[2019-01-16] MEDS: ZINC SULFATE 220 MG CAPSULE (FP) PO SCH (11:37)
[2019-01-16] MEDS: FENOFIBRIC ACID 45 MG CAP PO SCH (11:37)
--- NOTE | 2019-01-16 13:03 | EKG ---
Test Reason : Blood Pressure : / mmHG Vent. Rate : 041 BPM Atrial Rate : 041 BPM P-R Int : 186 ms QRS Dur : 080 ms QT Int : 508 ms P-R-T Axes : 050 034 062 degrees QTc Int : 419 ms MARKED SINUS BRADYCARDIA WITH SINUS ARRHYTHMIA ABNORMAL ECG WHEN COMPARED WITH ECG OF 12-JAN-2019 20:50, PREMATURE ATRIAL COMPLEXES ARE NO LONGER PRESENT Confirmed by Eliecer Johnson ([id number]) on 01/16/2019 1:03:14 PM Referred By: Henri RICO Confirmed By:Eliecer Johnson
--- NOTE | 2019-01-16 18:16 | PN ---
Progress Note (short form) - Note Progress Note: Vascular Surgery CTA reviewed - patent three vessel runoff. No need for angiogram. Pt has osteo of left great toe with fluid collection. [facility] podiatry eval for toe amputation. Will consult dr. Marquez for amputation Darrion Vasquez DO
[2019-01-16] MEDS: VANCOMYCIN 1 GM in D5W (PRE-DOCKED) 1,000 MG/250 ML IVPB SCH (19:03)
--- NOTE | 2019-01-16 20:29 | PN ---
Teaching Attending Note Name of Resident: Arti Chong ATTENDING PHYSICIAN STATEMENT I saw and evaluated the patient. I reviewed the resident's note and discussed the case with the resident. I agree with the resident's findings and plan as documented. SUBJECTIVE: Patient is feeling tired with HR of 45 today. OBJECTIVE: Vital Signs Temperature 98.0 F 01/16/19 18:00 Pulse Rate 45 L 01/16/19 18:00 Respiratory Rate 20 01/16/19 18:00 Blood Pressure 149/56 L 01/16/19 18:00 O2 Sat by Pulse Oximetry (%) 97 01/16/19 09:00 GENERAL: Awake, alert, and fully oriented, in no acute distress. HEAD: Normal with no signs of trauma. EYES: PERRLA, EOMI, sclera anicteric, conjunctiva clear. EARS, NOSE, THROAT: oropharynx clear without exudates. Moist mucous membranes. NECK: Normal range of motion, supple without lymphadenopathy, JVD, or masses. LUNGS: Breath sounds equal, clear to auscultation bilaterally. HEART: Regular rate and rhythm, normal S1 and S2 positive, KAMINI 3/6 . ABDOMEN: Soft, NT, ND, normoactive bowel sounds. EXTREMITIES: 2+ pulses, warm, No peripheral edema. LLE:erythema is improving. big toe is swollen with open ulcers on the plantar surface of the toe, no further dc noted. NEUROLOGICAL: Cranial nerves II-XII intact. Normal speech. Gait not observed. PSYCHIATRIC: Cooperative. Good eye contact. Appropriate mood and affect. SKIN: Warm, dry, normal turgor, no rashes or lesions noted. CBCD WBC 6.4 K/mm3 (4.0-10.0) 01/16/19 07:30 RBC 3.43 M/mm3 (3.60-5.2) L 01/16/19 07:30 Hgb 9.0 GM/dL (10.7-15.3) L 01/16/19 07:30 Hct 27.4 % (32.4-45.2) L 01/16/19 07:30 MCV 80.0 fl (80-96) 01/16/19 07:30 MCHC 32.9 g/dl (32.0-36.0) 01/16/19 07:30 RDW 15.1 % (11.6-15.6) 01/16/19 07:30 Plt Count 373 K/MM3 (134-434) 01/16/19 07:30 MPV 8.3 fl (7.5-11.1) 01/16/19 07:30 CMP Sodium 137 mmol/L (136-145) 01/16/19 07:30 Potassium 4.6 mmol/L (3.5-5.1) 01/16/19 07:30 Chloride 106 mmol/L (98-107) 01/16/19 07:30 Carbon Dioxide 26 mmol/L (21-32) 01/16/19 07:30 Anion Gap 5 MMOL/L (8-16) L 01/16/19 07:30 BUN 13 mg/dL (7-18) 01/16/19 07:30 Creatinine 1.0 mg/dL (0.55-1.3) 01/16/19 07:30 Creat Clearance w eGFR 53.21 (>60) 01/16/19 07:30 Random Glucose 166 mg/dL (74-106) H 01/16/19 07:30 Calcium 8.8 mg/dL (8.5-10.1) 01/16/19 07:30 Total Bilirubin 0.2 mg/dL (0.2-1) 01/13/19 06:45 AST 9 U/L (15-37) L 01/13/19 06:45 ALT 9 U/L (13-61) L 01/13/19 06:45 Alkaline Phosphatase 71 U/L (45-117) 01/13/19 06:45 Total Protein 5.9 g/dl (6.4-8.2) L 01/13/19 06:45 Albumin 2.6 g/dl (3.4-5.0) L 01/13/19 06:45 Current Medications Generic Name Dose Route Start Last Admin Trade Name Freq PRN Reason Stop Dose Admin Acetaminophen 650 mg 01/12/19 20:44 Tylenol - PO Q6H PRN FEVER Amlodipine Besylate 10 mg 01/13/19 10:00 01/16/19 11:36 Norvasc - PO 10 mg DAILY LETICIA Administration Aspirin 81 mg 01/13/19 10:00 01/16/19 11:36 Asa - PO 81 mg DAILY LETICIA Administration Calcium Carbonate/Cholecalciferol 1 tab 01/13/19 10:00 01/16/19 11:36 Os-Oskar 500+D - PO 1 tab DAILY LETICIA Administration Clopidogrel Bisulfate 75 mg 01/13/19 10:00 01/16/19 11:36 Plavix - PO 75 mg DAILY LETICIA Administration Docusate Sodium 100 mg 01/12/19 20:43 Colace - PO DAILY PRN CONSTIPATION Fenofibric Acid 45 mg 01/13/19 10:00 01/16/19 11:37 Trilipix - PO 45 mg DAILY LETICIA Administration Heparin Sodium (Porcine) 5,000 unit 01/12/19 22:00 01/16/19 11:36 Heparin - SQ 5,000 unit BID LETICIA Administration Hydralazine HCl 10 mg 01/12/19 22:00 01/16/19 14:59 Apresoline - PO 10 mg TID LETICIA Administration Piperacillin Sod/Tazobactam 50 mls @ 100 mls/hr 01/13/19 18:00 01/16/19 17:16 Sod 3.375 gm/ Dextrose IVPB 100 mls/hr Q8H-IV LETICIA Administration Protocol Insulin Aspart 1 vial 01/12/19 22:00 01/16/19 17:14 Novolog Vial Sliding Scale - SQ 2 units ACHS LETICIA Administration Protocol Lactobacillus Acidophilus 1 tab 01/13/19 10:00 01/16/19 11:36 Bacid - PO 1 tab DAILY LETICIA Administration Levothyroxine Sodium 112 mcg 01/13/19 07:00 01/16/19 06:44 Synthroid - PO 112 mcg DAILY@0700 LETICIA Administration Lisinopril 20 mg 01/12/19 22:00 01/16/19 11:37 Prinivil PO 20 mg BID LETICIA Administration Senna 1 tab 01/12/19 20:43 Senna - PO DAILY PRN CONSTIPATION Vancomycin HCl 1,000 mg 01/13/19 19:00 01/16/19 19:03 Vancomycin (Pre-Docked) IVPB 1,000 mg DAILY@1900 [facility] Administration Protocol Zinc Sulfate 220 mg 01/13/19 10:00 01/16/19 11:37 Orazinc - PO 220 mg DAILY LETICIA Administration Home Medications Medication Instructions Recorded Amlodipine Besylate 1 tab PO DAILY 01/12/19 Ascorbic Acid [Vitamin C] 500 mg PO DAILY 01/12/19 Aspirin [ASA -] 1 tab PO DAILY 01/12/19 Calcium Carbonate/Vitamin D3 1 tab PO DAILY 01/12/19 [Calcium 500-Vit D3 600 Tablet] Clopidogrel Bisulfate [Plavix] 1 tab PO DAILY 01/12/19 Docusate Sodium [Colace] 1 tab PO DAILY PRN 01/12/19 Fenofibrate 40 mg PO DAILY 01/12/19 Glipizide 1 tab PO BID 01/12/19 Hydralazine HCl 10 mg PO TID 01/12/19 Lactobacillus Acidophilus [Bacid -] 1 tab PO DAILY 01/12/19 Levothyroxine [Synthroid -] 1 tab PO DAILY 01/12/19 Lisinopril 20 mg PO BID 01/12/19 Meloxicam [Mobic] 15 mg PO DAILY 01/12/19 Sennosides [Senna Laxative] 1 tab PO DAILY PRN 01/12/19 Zinc Sulfate [Zinc-15] 66 mg PO DAILY 01/12/19 ASSESSMENT AND PLAN: Patient is an 83 year old female with past medical history of DM, HTN, HLD, hypothyroidism, presented from wound care clinic due to left great toe ulcers. #Left great toe ulcers with left LE cellulitis with Osteomyelitis ,positive for MRI, on IV Zosyn and Vanco day #4 continue ,ID on the case, wound cx done follow up with the result. Tylenol PRN for pain. Dr. Monk on the case .CTA reviewed . Might need toe amputation. #T2DM continue with sliding scale with coverage ,Glipizide and metfromin is on hold. HbA1c ordered #Hypertension continue Lisinopril 20mg BID/Amlodipine 10mg daily/Hydralazine 10mg TID #Hypothyroidism continue home Synthroid 112mcg daily Dvt Prophylaxis: Heparin 5000unit sq bid -full code -med surg
[2019-01-17] MEDS ORDERED: guaiFENesin 200 MG/10 ML 10 ML UNIT-DOSE CUPS PO ONE (01:57)
[2019-01-17] MEDS ORDERED: PIPERACILLIN/TAZOBACTAM 3.375 GM VIAL IVPB ONE ×3 (02:13→17:08)
[2019-01-17] MEDS ORDERED: DEXTROSE 5%-WATER - 50 ML IVPB ONE ×3 (02:13→17:08)
[2019-01-17] MEDS: PIPERACILLIN/TAZOB 3.375 GM 3.375 GM in DEXTROSE 5%-WATER - 50 ML IVPB SCH ×3 (02:35→17:15)
[2019-01-17] MEDS ORDERED: PT OWN MED DRAWER 7, Y5N ONE ×2 (06:20→09:02)
[2019-01-17] MEDS: LEVOTHYROXINE NA 112 MCG TABLET (FP) PO SCH (06:23)
[2019-01-17] MEDS: hydrALAZINE HCL 10 MG TABLET PO SCH ×3 (06:23→23:02)
[2019-01-17] MEDS: INSULIN SLIDING SCALE (NOVOLOG) 1 VIAL SQ SCH ×4 (06:47→23:13)
[2019-01-17 07:38] LABS: BASO % 1.1 % (0-2.0); EOS % 2.3 % (0-4.5); HEMATOCRIT 28.1 % (32.4-45.2); HEMOGLOBIN 9.2 GM/dL (10.7-15.3); LYMPH % 18.6 % (8-40); MCH 26.2 pg (25.7-33.7); MCHC 32.6 g/dl (32.0-36.0); MEAN CELL VOLUME 80.4 fl (80-96); MEAN PLT VOLUME 8.3 fl (7.5-11.1); MONO % 5.9 % (3.8-10.2); NEUT % 72.1 % (42.8-82.8); PLATELET COUNT 355 K/MM3 (134-434); RDW 15.5 % (11.6-15.6)
[2019-01-17 07:58] LABS: ANION GAP 7 MMOL/L (8-16); BLOOD UREA NITROGEN 15 mg/dL (7-18); CALCIUM 9.3 mg/dL (8.5-10.1); CHLORIDE 106 mmol/L (98-107); CO2 26 mmol/L (21-32); CREATININE 1.2 mg/dL (0.55-1.3); GLUCOSE,RANDOM 194 mg/dL (74-106); MAGNESIUM 1.8 mg/dL (1.8-2.4); PHOSPHOROUS 3.3 mg/dL (2.5-4.9); POTASSIUM 4.9 mmol/L (3.5-5.1); SODIUM 138 mmol/L (136-145)
[2019-01-17] MEDS: CALCIUM 500MG/VIT-D 200 UNITS COMBO TABLET (FP) PO SCH (10:43)
[2019-01-17] MEDS: ZINC SULFATE 220 MG CAPSULE (FP) PO SCH (10:43)
[2019-01-17] MEDS: LACTOBACILLUS ACIDOPHILUS 1 TABLET PO SCH (10:43)
[2019-01-17] MEDS: LISINOPRIL 20 MG TABLET (FP) PO SCH ×2 (10:43→23:02)
[2019-01-17] MEDS: ASPIRIN 81 MG CHEWABLE TABLETS PO SCH (10:43)
[2019-01-17] MEDS: CLOPIDOGREL BISULFATE 75 MG TABLET (FP) PO SCH (10:43)
[2019-01-17] MEDS: amLODIPine BESYLATE 10 MG TABLET (FP) PO SCH (10:43)
[2019-01-17] MEDS: FENOFIBRIC ACID 45 MG CAP PO SCH (10:44)
[2019-01-17] MEDS: HEPARIN NA (PORCINE) 5,000 UNITS/ML 1ML VIAL SQ SCH ×2 (10:44→23:08)
--- NOTE | 2019-01-17 11:12 | CONSULT ---
Consult - text type - Consultation Consultation Note: Podiatry Consultation: Pleasant 83 year old diabetic female presents to hospital for admission fro L great toe infection. Patient noted swelling/redness to the toe, she does not know how the infection started or when. She is currently afebrile, VSS. PMHx: DM, HTN, HLP, hypothyroidism Meds: noted ALL: NKMA LATONIA: L foot: pedal pulses nonpalpable, TG wnl, CFT brisk to toes. There are several plantar hallux diabetic ulcers with fibrotic base, (+) probing to bone, (+) seropurulent drainage, fluctuance present, no soft tissue crepitus. There is significant digital edema and erythema to the toe as well. There is minimal tenderness to palpation. L foot MRI: (+) osteomyelitis proximal and distal phalanx of hallux ESR: 97 Wound Cx: alpha strep, enterococcus, MSSA Imp: 83 year old diabetic female with osteomyelitis left great toe 1. IV abx per ID 2. Continue local wound care 3. I discussed treatment options with patient at length at bedside. Given clinical appearance of the toe, I have strongly recommended amputation as I do not believe the toe is salvageable. She is adamantly refusing amputation at this time, and I have recommended she think about her options before making a decision. 4. Will reevaluate tomorrow and discussed options with patient again so she can make a definitive decision. I have also recommended discussion with her family. I will continue to follow. Thank you for the courtesy of this consultation. Izabella Marquez DPM
[2019-01-17] MEDS ORDERED: INSULIN (NOVOLOG) ASPART 100 UNITS/ML 10ML VIAL ONE (11:38)
[2019-01-17] MEDS ORDERED: guaiFENesin/D-METHORPHAN HB 10 ML UNIT-DOSE CUPS PO PRN (13:41)
--- NOTE | 2019-01-17 15:13 | PN ---
Physical Exam: SUBJECTIVE: Patient seen and examined at bedside this morning. No acute events overnight. Patient resting comfortably in bed and has no complaints. OBJECTIVE: Vital Signs Temperature 97.9 F 01/17/19 14:51 Pulse Rate 51 L 01/17/19 14:51 Respiratory Rate 20 01/17/19 14:51 Blood Pressure 127/57 L 01/17/19 14:51 O2 Sat by Pulse Oximetry (%) 98 01/17/19 09:00 GENERAL: Awake, alert, and fully oriented, in no acute distress. HEAD: Normal with no signs of trauma. EYES: PERRLA, EOMI, sclera anicteric, conjunctiva clear. EARS, NOSE, THROAT: oropharynx clear without exudates. Moist mucous membranes. NECK: Normal range of motion, supple LUNGS: Breath sounds equal, clear to auscultation bilaterally. HEART: Bradycardia, normal S1 and S2 ABDOMEN: Soft, nontender, not distended, normoactive bowel sounds. MUSCULOSKELETAL: Normal range of motion at all joints. UPPER EXTREMITIES: 2+ pulses, warm, well-perfused. No peripheral edema. LOWER EXTREMITIES: 2+ pulses, warm, well-perfused. No peripheral edema. LLE: + erythema (improved), no warmth or tenderness, +multiple ulcers on plantar side of left great toe. NEUROLOGICAL: Cranial nerves II-XII intact. Normal speech. Gait not observed. PSYCHIATRIC: Cooperative. Good eye contact. Appropriate mood and affect. SKIN: Warm, dry, normal turgor, no rashes or lesions noted. Laboratory Results - last 24 hr 01/16/19 01/16/19 01/17/19 17:14 22:06 06:21 WBC RBC Hgb Hct MCV MCH MCHC RDW Plt Count MPV Absolute Neuts (auto) Neutrophils % Lymphocytes % Monocytes % Eosinophils % Basophils % Nucleated RBC % Sodium Potassium Chloride Carbon Dioxide Anion Gap BUN Creatinine Creat Clearance w eGFR POC Glucometer 200 252 201 Random Glucose Calcium Phosphorus Magnesium Ferritin 01/17/19 01/17/19 01/17/19 06:45 06:45 11:34 WBC 8.0 RBC 3.50 L Hgb 9.2 L Hct 28.1 L MCV 80.4 MCH 26.2 MCHC 32.6 RDW 15.5 Plt Count 355 MPV 8.3 Absolute Neuts (auto) 5.8 Neutrophils % 72.1 Lymphocytes % 18.6 D Monocytes % 5.9 Eosinophils % 2.3 Basophils % 1.1 Nucleated RBC % 0 Sodium 138 Potassium 4.9 Chloride 106 Carbon Dioxide 26 Anion Gap 7 L BUN 15 Creatinine 1.2 Creat Clearance w eGFR 43.12 POC Glucometer 217 Random Glucose 194 H Calcium 9.3 Phosphorus 3.3 Magnesium 1.8 Ferritin 13.8 Active Medications Generic Name Dose Route Start Last Admin Trade Name Freq PRN Reason Stop Dose Admin Acetaminophen 650 mg 01/12/19 20:44 Tylenol - PO Q6H PRN FEVER Amlodipine Besylate 10 mg 01/13/19 10:00 01/17/19 10:43 Norvasc - PO 10 mg DAILY LETICIA Administration Aspirin 81 mg 01/13/19 10:00 01/17/19 10:43 Asa - PO 81 mg DAILY LETICIA Administration Calcium Carbonate/Cholecalciferol 1 tab 01/13/19 10:00 01/17/19 10:43 Os-Oskar 500+D - PO 1 tab DAILY LETICIA Administration Clopidogrel Bisulfate 75 mg 01/13/19 10:00 01/17/19 10:43 Plavix - PO 75 mg DAILY LETICIA Administration Docusate Sodium 100 mg 01/12/19 20:43 Colace - PO DAILY PRN CONSTIPATION Fenofibric Acid 45 mg 01/13/19 10:00 01/17/19 10:44 Trilipix - PO 45 mg DAILY LETICIA Administration Guaifenesin 10 ml 01/17/19 13:41 01/17/19 14:33 Robitussin Dm - PO 10 ml Q8H PRN Administration COUGH Heparin Sodium (Porcine) 5,000 unit 01/12/19 22:00 01/17/19 10:44 Heparin - SQ 5,000 unit BID LETICIA Administration Hydralazine HCl 10 mg 01/12/19 22:00 01/17/19 14:33 Apresoline - PO 10 mg TID LETICIA Administration Piperacillin Sod/Tazobactam 50 mls @ 100 mls/hr 01/13/19 18:00 01/17/19 10:44 Sod 3.375 gm/ Dextrose IVPB 100 mls/hr Q8H-IV LETICIA Administration Protocol Insulin Aspart 1 vial 01/12/19 22:00 01/17/19 11:39 Novolog Vial Sliding Scale - SQ 4 units ACHS LETICIA Administration Protocol Lactobacillus Acidophilus 1 tab 01/13/19 10:00 01/17/19 10:43 Bacid - PO 1 tab DAILY LETICIA Administration Levothyroxine Sodium 112 mcg 01/13/19 07:00 01/17/19 06:23 Synthroid - PO 112 mcg DAILY@0700 LETICIA Administration Lisinopril 20 mg 01/12/19 22:00 01/17/19 10:43 Prinivil PO 20 mg BID LETICIA Administration Mupirocin 1 applic 01/18/19 10:00 Bactroban 2% Ointment - TP DAILY LETICIA Senna 1 tab 01/12/19 20:43 Senna - PO DAILY PRN CONSTIPATION Vancomycin HCl 1,000 mg 01/13/19 19:00 01/16/19 19:03 Vancomycin (Pre-Docked) IVPB 1,000 mg DAILY@1900 LETICIA Administration Protocol Zinc Sulfate 220 mg 01/13/19 10:00 01/17/19 10:43 Orazinc - PO 220 mg DAILY LETICIA Administration -Left foot xray: Slightly displaced fracture at the base of the first distal phalanx, medially involving the articular surface. Significant osteopenia is limiting evaluation of the bone and focal bone destruction within the lateral aspect of the first distal phalanx could not be entirely excluded. Significant soft tissue swelling. -CTA abdomen with BLE runoff: Erosive changes of the first toe on the left with soft tissue edema. Three vessel runoff bilaterally. -Left LE MRI: Severe soft tissue edema of the first toe. Open wound along the plantar lateral aspect of the first toe at the level of the interphalangeal joint with serpiginous fluid collection along the plantar lateral aspect of the toe and proximally is extending medially. Destruction of the distal aspect of the proximal phalanx and the base of the distal phalanx of the first toe with marked bone marrow edema of the proximal and distal phalanges consistent with osteomyelitis. ASSESSMENT/PLAN: Patient is an 83 year old female with past medical history of DM, HTN, HLD, hypothyroidism, presented from wound care clinic due to left great toe ulcers. #Left great toe ulcers with left LE cellulitis -Debridement done at the wound care clinic today. -Wound cultures - alpha hemolytic strep, group D strep, presumptive MSSA -MRI of Left LE consistent with osteomyelitis. -Vascular surgery (Dr. Vasquez) consulted. Recommendations appreciated. -Podiatry (Dr. Marquez) consulted. Recommendations appreciated. -IV antibiotics, continue local wound care -Amputation strongly recommended but patient adamantly refusing at this time. -Will reevaluate tomorrow. -ID (Dr. Young) consulted. -Will continue Vanc/Zosyn (Day 6) -Tylenol PRN for pain #Anemia -Iron studies, retic count -will continue to monitor H/H #DM -Will hold Metformin and Glipizide -HbA1c - 7.8 -Insulin sliding scale -BGM ACHS #Hypertension -Continue Lisinopril 20mg BID -Amlodipine 10mg daily -Hydralazine 10mg TID #Hypothyroidism -Continue home Synthroid 112mcg daily #FEN -Not on any standing fluids -Encourage increased oral fluid intake -Electrolytes wnl, routine bmp monitoring -Diabetic diet #Prophylaxis -Heparin 5000unit sq bid #disposition -full code -med surg Visit type - Emergency Visit Emergency Visit: Yes ED Registration Date: 01/12/19 Care time: The patient presented to the Emergency Department on the above date and was hospitalized for further evaluation of their emergent condition. - New Patient This patient is new to me today: No - Critical Care Critical Care patient: No
--- NOTE | 2019-01-17 15:26 | EKG ---
Test Reason : Blood Pressure : / mmHG Vent. Rate : 057 BPM Atrial Rate : 057 BPM P-R Int : 180 ms QRS Dur : 084 ms QT Int : 436 ms P-R-T Axes : 069 026 064 degrees QTc Int : 424 ms SINUS BRADYCARDIA WITH PREMATURE ATRIAL COMPLEXES NONSPECIFIC ST ABNORMALITY ABNORMAL ECG WHEN COMPARED WITH ECG OF 12-JAN-2019 20:12, SINUS RHYTHM HAS REPLACED ECTOPIC ATRIAL RHYTHM Confirmed by TIGRE ZHU, LOUISE ([id number]) on 01/17/2019 3:26:32 PM Referred By: Confirmed By:LOUISE LANDEROS MD
--- NOTE | 2019-01-17 18:16 | PN ---
Teaching Attending Note Name of Resident: Edison Maloney ATTENDING PHYSICIAN STATEMENT I saw and evaluated the patient. I reviewed the resident's note and discussed the case with the resident. I agree with the resident's findings and plan as documented. SUBJECTIVE: seen and examined, complaining of cough and congestion. no fevers, no other complaints, no pain. OBJECTIVE: Vital Signs - 24 hr 01/16/19 01/16/19 01/17/19 20:52 22:00 06:00 Temperature 98.1 F 98.3 F Pulse Rate 55 L 49 L Respiratory 18 18 Rate Blood Pressure 148/67 143/87 O2 Sat by Pulse 98 Oximetry (%) 01/17/19 01/17/19 01/17/19 09:00 10:00 14:51 Temperature 97.9 F Pulse Rate 50 L 51 L Respiratory 18 20 Rate Blood Pressure 146/62 127/57 L O2 Sat by Pulse 98 Oximetry (%) PHYSICAL EXAM: GENERAL: NAD HEENT: NC/AT, MMM, no LAD, throat clear no exudates CVS: S1s2, rrr, +KAMINI Lungs: CTA b/l, no w/r/r, unlabored Abd: soft, nt/nt, obese, nabs Ext: left calf mild erythema, no edema bilaterally, left great toe swollen, plantar open ulcers with serosanguinous drainage, nontender Current Medications Generic Name Dose Route Start Last Admin Trade Name Freq PRN Reason Stop Dose Admin Acetaminophen 650 mg 01/12/19 20:44 Tylenol - PO Q6H PRN FEVER Amlodipine Besylate 10 mg 01/13/19 10:00 01/17/19 10:43 Norvasc - PO 10 mg DAILY LETICIA Administration Aspirin 81 mg 01/13/19 10:00 01/17/19 10:43 Asa - PO 81 mg DAILY LETICIA Administration Calcium Carbonate/Cholecalciferol 1 tab 01/13/19 10:00 01/17/19 10:43 Os-Oskar 500+D - PO 1 tab DAILY LETICIA Administration Clopidogrel Bisulfate 75 mg 01/13/19 10:00 01/17/19 10:43 Plavix - PO 75 mg DAILY LETICIA Administration Docusate Sodium 100 mg 01/12/19 20:43 Colace - PO DAILY PRN CONSTIPATION Fenofibric Acid 45 mg 01/13/19 10:00 01/17/19 10:44 Trilipix - PO 45 mg DAILY LETICIA Administration Guaifenesin 10 ml 01/17/19 18:09 Diabetic Tussin Dm - PO Q4H PRN COUGH Heparin Sodium (Porcine) 5,000 unit 01/12/19 22:00 01/17/19 10:44 Heparin - SQ 5,000 unit BID LETICIA Administration Hydralazine HCl 10 mg 01/12/19 22:00 01/17/19 14:33 Apresoline - PO 10 mg TID LETICIA Administration Piperacillin Sod/Tazobactam 50 mls @ 100 mls/hr 01/13/19 18:00 01/17/19 17:15 Sod 3.375 gm/ Dextrose IVPB 100 mls/hr Q8H-IV LETICIA Administration Protocol Insulin Aspart 1 vial 01/12/19 22:00 01/17/19 17:12 Novolog Vial Sliding Scale - SQ 6 units ACHS [facility] Administration Protocol Lactobacillus Acidophilus 1 tab 01/13/19 10:00 01/17/19 10:43 Bacid - PO 1 tab DAILY LETICIA Administration Levothyroxine Sodium 112 mcg 01/13/19 07:00 01/17/19 06:23 Synthroid - PO 112 mcg DAILY@0700 LETICIA Administration Lisinopril 20 mg 01/12/19 22:00 01/17/19 10:43 Prinivil PO 20 mg BID LETICIA Administration Mupirocin 1 applic 01/18/19 10:00 Bactroban 2% Ointment - TP DAILY LETICIA Senna 1 tab 01/12/19 20:43 Senna - PO DAILY PRN CONSTIPATION Vancomycin HCl 1,000 mg 01/13/19 19:00 01/16/19 19:03 Vancomycin (Pre-Docked) IVPB 1,000 mg DAILY@1900 [facility] Administration Protocol Zinc Sulfate 220 mg 01/13/19 10:00 01/17/19 10:43 Orazinc - PO 220 mg DAILY LETICIA Administration Laboratory Results - last 24 hr 01/16/19 01/17/19 01/17/19 22:06 06:21 06:45 WBC 8.0 RBC 3.50 L Hgb 9.2 L Hct 28.1 L MCV 80.4 MCH 26.2 MCHC 32.6 RDW 15.5 Plt Count 355 MPV 8.3 Absolute Neuts (auto) 5.8 Neutrophils % 72.1 Lymphocytes % 18.6 D Monocytes % 5.9 Eosinophils % 2.3 Basophils % 1.1 Nucleated RBC % 0 Sodium Potassium Chloride Carbon Dioxide Anion Gap BUN Creatinine Creat Clearance w eGFR POC Glucometer 252 201 Random Glucose Calcium Phosphorus Magnesium Ferritin 01/17/19 01/17/19 01/17/19 06:45 11:34 17:05 WBC RBC Hgb Hct MCV MCH MCHC RDW Plt Count MPV Absolute Neuts (auto) Neutrophils % Lymphocytes % Monocytes % Eosinophils % Basophils % Nucleated RBC % Sodium 138 Potassium 4.9 Chloride 106 Carbon Dioxide 26 Anion Gap 7 L BUN 15 Creatinine 1.2 Creat Clearance w eGFR 43.12 POC Glucometer 217 284 Random Glucose 194 H Calcium 9.3 Phosphorus 3.3 Magnesium 1.8 Ferritin 13.8 Microbiology 01/13/19 14:48 Blood - Peripheral Venous Blood Culture - Preliminary NO GROWTH OBTAINED AFTER 96 HOURS, INCUBATION TO CONTINUE FOR 1 DAYS. 01/13/19 14:58 Blood - Peripheral Venous Blood Culture - Preliminary NO GROWTH OBTAINED AFTER 96 HOURS, INCUBATION TO CONTINUE FOR 1 DAYS. 01/13/19 Unknown Abscess Gram Stain - Final 01/13/19 Unknown Abscess Wound Culture - Preliminary Alpha Hemolytic Streptococcus Enterococcus Faecalis Presumptive Mssa (Pbp2a Neg) IMAGING: ALL REPORTS REVIEWED ASSESSMENT AND PLAN: 83 year old female with PMHx DM2, HTN, HLD, hypothyroidism, presented from wound care clinic due to left great toe ulcers. 1) Left great toe osteomyleitis/cellulitis -c/w zosyn and vanco -f/u cultures -vascular evaluation appreciated, no angiogram, suggest podiatry eval -podiatry eval noted, patient needs amputation, resistant but will think about it -pain control -wound care -ID following 2) DM2 -c/w current mngmt -bs checks 3) HTN -controlled on current mngmt 4) Hypothyroidism on synthroid 5) Acute cough -will check cxr -mucolytics
[2019-01-17] MEDS: VANCOMYCIN 1 GM in D5W (PRE-DOCKED) 1,000 MG/250 ML IVPB SCH (18:42)
[2019-01-17] MEDS: guaiFENesin/D-M SUGAR-FREE/ACLHOL-FREE 118 ML BOTTLE PO PRN (23:36)
[2019-01-18] MEDS ORDERED: DEXTROSE 5%-WATER - 50 ML IVPB ONE ×3 (01:19→16:43)
[2019-01-18] MEDS ORDERED: PIPERACILLIN/TAZOBACTAM 3.375 GM VIAL IVPB ONE ×3 (01:19→16:43)
[2019-01-18] MEDS: PIPERACILLIN/TAZOB 3.375 GM 3.375 GM in DEXTROSE 5%-WATER - 50 ML IVPB SCH ×3 (01:36→17:12)
[2019-01-18] MEDS ORDERED: PT OWN MED DRAWER 7, Y5N ONE ×3 (06:15→11:51)
[2019-01-18] MEDS: hydrALAZINE HCL 10 MG TABLET PO SCH ×3 (06:33→21:39)
[2019-01-18] MEDS: LEVOTHYROXINE NA 112 MCG TABLET (FP) PO SCH (06:33)
[2019-01-18] MEDS: INSULIN SLIDING SCALE (NOVOLOG) 1 VIAL SQ SCH ×4 (06:37→21:40)
[2019-01-18] MEDS: guaiFENesin/D-M SUGAR-FREE/ACLHOL-FREE 118 ML BOTTLE PO PRN ×4 (06:37→21:39)
[2019-01-18 07:35] LABS: ANION GAP 5 MMOL/L (8-16); BLOOD UREA NITROGEN 16 mg/dL (7-18); CALCIUM 9.2 mg/dL (8.5-10.1); CHLORIDE 107 mmol/L (98-107); CO2 28 mmol/L (21-32); CREATININE 1.2 mg/dL (0.55-1.3); GLUCOSE,RANDOM 200 mg/dL (74-106); POTASSIUM 4.9 mmol/L (3.5-5.1); SODIUM 139 mmol/L (136-145)
[2019-01-18 07:44] LABS: MCH 26.1 pg (25.7-33.7); MCHC 32.3 g/dl (32.0-36.0); MEAN CELL VOLUME 80.7 fl (80-96); MEAN PLT VOLUME 8.5 fl (7.5-11.1); PLATELET COUNT 351 K/MM3 (134-434); RBC 3.47 M/mm3 (3.60-5.2); RDW 15.5 % (11.6-15.6); WHITE BLOOD COUNT 7.8 K/mm3 (4.0-10.0)
[2019-01-18 08:06] LABS: SERUM IRON SATURATION 14 % (15-55); TOTAL IRON BINDING CAPACITY 293 ug/dL (250-450); UIBC 251 ug/dL (118-369)
[2019-01-18] MEDS ORDERED: MUPIROCIN 2% TOPICAL OINTMENT 22 GM TUBE TP SCH (10:00)
[2019-01-18] MEDS: HEPARIN NA (PORCINE) 5,000 UNITS/ML 1ML VIAL SQ SCH ×2 (10:02→21:38)
[2019-01-18] MEDS: CALCIUM 500MG/VIT-D 200 UNITS COMBO TABLET (FP) PO SCH (10:02)
[2019-01-18] MEDS: ZINC SULFATE 220 MG CAPSULE (FP) PO SCH (10:02)
[2019-01-18] MEDS: CLOPIDOGREL BISULFATE 75 MG TABLET (FP) PO SCH (10:02)
[2019-01-18] MEDS: ASPIRIN 81 MG CHEWABLE TABLETS PO SCH (10:02)
[2019-01-18] MEDS: amLODIPine BESYLATE 10 MG TABLET (FP) PO SCH (10:02)
[2019-01-18] MEDS: LISINOPRIL 20 MG TABLET (FP) PO SCH ×2 (10:02→21:38)
[2019-01-18] MEDS: LACTOBACILLUS ACIDOPHILUS 1 TABLET PO SCH (10:03)
[2019-01-18] MEDS: FENOFIBRIC ACID 45 MG CAP PO SCH (10:04)
[2019-01-18] MEDS ORDERED: INSULIN (NOVOLOG) ASPART 100 UNITS/ML 10ML VIAL ONE (11:51)
--- NOTE | 2019-01-18 12:00 | PN ---
Physical Exam: SUBJECTIVE: Patient seen and examined at bedside this morning. No acute events overnight. PAtient still reports she has nonproductive cough, relieved by robitussin. Discussed with patient again regarding possible amputation of toe, but still adamantly refuses and would want to do all other options except amputation. Still currently trying to reach the son, Yves. OBJECTIVE: Vital Signs Temperature 98.2 F 01/18/19 06:34 Pulse Rate 59 L 01/18/19 06:34 Respiratory Rate 18 01/18/19 06:34 Blood Pressure 122/88 01/18/19 06:34 O2 Sat by Pulse Oximetry (%) 98 01/17/19 21:00 GENERAL: Awake, alert, and fully oriented, in no acute distress. HEAD: Normal with no signs of trauma. EYES: PERRLA, EOMI, sclera anicteric, conjunctiva clear. EARS, NOSE, THROAT: oropharynx clear without exudates. Moist mucous membranes. NECK: Normal range of motion, supple LUNGS: Breath sounds equal, clear to auscultation bilaterally. HEART: Bradycardia, normal S1 and S2 ABDOMEN: Soft, nontender, not distended, normoactive bowel sounds. MUSCULOSKELETAL: Normal range of motion at all joints. UPPER EXTREMITIES: 2+ pulses, warm, well-perfused. No peripheral edema. LOWER EXTREMITIES: 2+ pulses, warm, well-perfused. No peripheral edema. LLE: + erythema just around the foot (improved), no warmth or tenderness, +multiple ulcers on plantar side of left great toe. NEUROLOGICAL: Cranial nerves II-XII intact. Normal speech. Gait not observed. PSYCHIATRIC: Cooperative. Good eye contact. Appropriate mood and affect. SKIN: Warm, dry, normal turgor, no rashes or lesions noted. Laboratory Results - last 24 hr 01/16/19 01/17/19 01/17/19 13:53 06:45 17:05 WBC RBC Hgb Hct MCV MCH MCHC RDW Plt Count MPV Sodium Potassium Chloride Carbon Dioxide Anion Gap BUN Creatinine Creat Clearance w eGFR POC Glucometer 284 Random Glucose Calcium Iron 42 TIBC 293 Iron Saturation 14 L Free T3 1.4 L 01/17/19 01/18/19 01/18/19 23:12 06:25 06:25 WBC 7.8 RBC 3.47 L Hgb 9.0 L Hct 28.0 L MCV 80.7 MCH 26.1 MCHC 32.3 RDW 15.5 Plt Count 351 MPV 8.5 Sodium 139 Potassium 4.9 Chloride 107 Carbon Dioxide 28 Anion Gap 5 L BUN 16 Creatinine 1.2 Creat Clearance w eGFR 43.12 POC Glucometer 254 Random Glucose 200 H Calcium 9.2 Iron TIBC Iron Saturation Free T3 01/18/19 01/18/19 06:32 11:22 WBC RBC Hgb Hct MCV MCH MCHC RDW Plt Count MPV Sodium Potassium Chloride Carbon Dioxide Anion Gap BUN Creatinine Creat Clearance w eGFR POC Glucometer 183 270 Random Glucose Calcium Iron TIBC Iron Saturation Free T3 Active Medications Generic Name Dose Route Start Last Admin Trade Name Freq PRN Reason Stop Dose Admin Acetaminophen 650 mg 01/12/19 20:44 Tylenol - PO Q6H PRN FEVER Amlodipine Besylate 10 mg 01/13/19 10:00 01/18/19 10:02 Norvasc - PO 10 mg DAILY LETICIA Administration Aspirin 81 mg 01/13/19 10:00 01/18/19 10:02 Asa - PO 81 mg DAILY LETICIA Administration Calcium Carbonate/Cholecalciferol 1 tab 01/13/19 10:00 01/18/19 10:02 Os-Oskar 500+D - PO 1 tab DAILY LETICIA Administration Clopidogrel Bisulfate 75 mg 01/13/19 10:00 01/18/19 10:02 Plavix - PO 75 mg DAILY LETICIA Administration Docusate Sodium 100 mg 01/12/19 20:43 Colace - PO DAILY PRN CONSTIPATION Fenofibric Acid 45 mg 01/13/19 10:00 01/18/19 10:04 Trilipix - PO 45 mg DAILY LETICIA Administration Guaifenesin 10 ml 01/17/19 18:09 01/18/19 06:37 Diabetic Tussin Dm - PO 10 ml Q4H PRN Administration COUGH Heparin Sodium (Porcine) 5,000 unit 01/12/19 22:00 01/18/19 10:02 Heparin - SQ 5,000 unit BID LETICIA Administration Hydralazine HCl 10 mg 01/12/19 22:00 01/18/19 06:33 Apresoline - PO 10 mg TID LETICIA Administration Piperacillin Sod/Tazobactam 50 mls @ 100 mls/hr 01/13/19 18:00 01/18/19 09:58 Sod 3.375 gm/ Dextrose IVPB 100 mls/hr Q8H-IV LETICIA Administration Protocol Insulin Aspart 1 vial 01/12/19 22:00 01/18/19 06:37 Novolog Vial Sliding Scale - SQ 2 units ACHS LETICIA Administration Protocol Lactobacillus Acidophilus 1 tab 01/13/19 10:00 01/18/19 10:03 Bacid - PO 1 tab DAILY LETICIA Administration Levothyroxine Sodium 112 mcg 01/13/19 07:00 01/18/19 06:33 Synthroid - PO 112 mcg DAILY@0700 LETICIA Administration Lisinopril 20 mg 01/12/19 22:00 01/18/19 10:02 Prinivil PO 20 mg BID LETICIA Administration Mupirocin 1 applic 01/18/19 10:00 Bactroban 2% Ointment - TP DAILY LETICIA Senna 1 tab 01/12/19 20:43 Senna - PO DAILY PRN CONSTIPATION Vancomycin HCl 1,000 mg 01/13/19 19:00 01/17/19 18:42 Vancomycin (Pre-Docked) IVPB 1,000 mg DAILY@1900 LETICIA Administration Protocol Zinc Sulfate 220 mg 01/13/19 10:00 01/18/19 10:02 Orazinc - PO 220 mg DAILY LETICIA Administration -Left foot xray: Slightly displaced fracture at the base of the first distal phalanx, medially involving the articular surface. Significant osteopenia is limiting evaluation of the bone and focal bone destruction within the lateral aspect of the first distal phalanx could not be entirely excluded. Significant soft tissue swelling. -CTA abdomen with BLE runoff: Erosive changes of the first toe on the left with soft tissue edema. Three vessel runoff bilaterally. -Left LE MRI: Severe soft tissue edema of the first toe. Open wound along the plantar lateral aspect of the first toe at the level of the interphalangeal joint with serpiginous fluid collection along the plantar lateral aspect of the toe and proximally is extending medially. Destruction of the distal aspect of the proximal phalanx and the base of the distal phalanx of the first toe with marked bone marrow edema of the proximal and distal phalanges consistent with osteomyelitis. ASSESSMENT/PLAN: Patient is an 83 year old female with past medical history of DM, HTN, HLD, hypothyroidism, presented from wound care clinic due to left great toe ulcers. #Left great toe ulcers with left LE cellulitis -Wound cultures - alpha hemolytic strep, group D strep, presumptive MSSA -MRI of Left LE consistent with osteomyelitis. -Vascular surgery (Dr. Vasquez) consulted. Recommendations appreciated. -Podiatry (Dr. Marquez) consulted. Recommendations appreciated. -IV antibiotics, continue local wound care -Amputation strongly recommended but patient adamantly refusing at this time. -For I&D of abscess with bone biopsy tomorrow -NPO after midnight. -ID (Dr. Young) consulted. -Will continue Vanc/Zosyn (Day 7) -Tylenol PRN for pain #Anemia -Iron studies, retic count -will continue to monitor H/H #DM -Will hold Metformin and Glipizide -HbA1c - 7.8 -Insulin sliding scale -BGM ACHS #Hypertension -Continue Lisinopril 20mg BID -Amlodipine 10mg daily -Hydralazine 10mg TID #Hypothyroidism -Continue home Synthroid 112mcg daily #FEN -Not on any standing fluids -Encourage increased oral fluid intake -Electrolytes wnl, routine bmp monitoring -Diabetic diet. NPO after midnight for debridement tomorrow. #Prophylaxis -Heparin 5000unit sq bid #disposition -full code -med surg Visit type - Emergency Visit Emergency Visit: Yes ED Registration Date: 01/12/19 Care time: The patient presented to the Emergency Department on the above date and was hospitalized for further evaluation of their emergent condition. - New Patient This patient is new to me today: No - Critical Care Critical Care patient: No
--- NOTE | 2019-01-18 12:16 | PN ---
Progress Note (short form) - Note Progress Note: Podiatry F/U: Seen/evaluated at bedside NAD. Pain controlled, denies F/V/N/C/SOB/CP. Afebrile, VSS. Still refusing amputation at this time. LATONIA: L foot: hallux diabetic multiple ulcers, (+) Probing to bone, (+) purulent drainage, (+) fluctuance, (+) moderate digital erythema, no streaking cellulitis , no soft tissue crepitus, no gangrenous changes. Minimal tenderness to palpation. Imp: 83 year old diabetic female with left great toe diabetic ulcer, abscess, osteomyelitis Discussed treatment options at length again with patient. She states that she has spoken to her son and she still wants to proceed with all other treatments except for amputation. She will not consent for amputation at this time. I did understand that her infection in the toe can worsen, it can spread to other parts of her foot, it can cause her amputation of the foot, sepsis and in the future. She understands and still refuses amputation at this time. I reached out to her son and left a message, I will attempt to reach out to him again. Despite refusing amputation, she still needs I&D as she has an abscess in her great toe. Will need fci IV abx if we are not performing amputation. Plan for I&D with bone biopsy tomorrow am in OR. NPO at midnight. Will follow. Izabella Marquez DPM
--- NOTE | 2019-01-18 12:16 | PN ---
Teaching Attending Note Name of Resident: Arti Chong ATTENDING PHYSICIAN STATEMENT I saw and evaluated the patient. I reviewed the resident's note and discussed the case with the resident. I agree with the resident's findings and plan as documented. SUBJECTIVE: Patient has no complaints. She denies pain. OBJECTIVE: Vital Signs Period Temp Pulse Resp BP Sys/Torre Pulse Ox Last 24 Hr 97.9 F-98.8 F 50-59 18-20 122-149/57-88 98 HEART: S1S2, RRR LUNGS: Clear ABDOMEN: Obese, soft, non-tender, non-distended, normal BS EXTREMITIES: Left 1st toe swollen with several plantar ulcers Laboratory Results - last 24 hr 01/16/19 01/17/19 01/17/19 13:53 06:45 17:05 WBC RBC Hgb Hct MCV MCH MCHC RDW Plt Count MPV Sodium Potassium Chloride Carbon Dioxide Anion Gap BUN Creatinine Creat Clearance w eGFR POC Glucometer 284 Random Glucose Calcium Iron 42 TIBC 293 Iron Saturation 14 L Free T3 1.4 L 01/17/19 01/18/19 01/18/19 23:12 06:25 06:25 WBC 7.8 RBC 3.47 L Hgb 9.0 L Hct 28.0 L MCV 80.7 MCH 26.1 MCHC 32.3 RDW 15.5 Plt Count 351 MPV 8.5 Sodium 139 Potassium 4.9 Chloride 107 Carbon Dioxide 28 Anion Gap 5 L BUN 16 Creatinine 1.2 Creat Clearance w eGFR 43.12 POC Glucometer 254 Random Glucose 200 H Calcium 9.2 Iron TIBC Iron Saturation Free T3 01/18/19 01/18/19 06:32 11:22 WBC RBC Hgb Hct MCV MCH MCHC RDW Plt Count MPV Sodium Potassium Chloride Carbon Dioxide Anion Gap BUN Creatinine Creat Clearance w eGFR POC Glucometer 183 270 Random Glucose Calcium Iron TIBC Iron Saturation Free T3 Current Medications Generic Name Dose Route Start Last Admin Trade Name Freq PRN Reason Stop Dose Admin Acetaminophen 650 mg 01/12/19 20:44 Tylenol - PO Q6H PRN FEVER Amlodipine Besylate 10 mg 01/13/19 10:00 01/18/19 10:02 Norvasc - PO 10 mg DAILY LETICIA Administration Aspirin 81 mg 01/13/19 10:00 01/18/19 10:02 Asa - PO 81 mg DAILY LETICIA Administration Calcium Carbonate/Cholecalciferol 1 tab 01/13/19 10:00 01/18/19 10:02 Os-Oskar 500+D - PO 1 tab DAILY LETICIA Administration Clopidogrel Bisulfate 75 mg 01/13/19 10:00 01/18/19 10:02 Plavix - PO 75 mg DAILY LETICIA Administration Docusate Sodium 100 mg 01/12/19 20:43 Colace - PO DAILY PRN CONSTIPATION Fenofibric Acid 45 mg 01/13/19 10:00 01/18/19 10:04 Trilipix - PO 45 mg DAILY LETICIA Administration Guaifenesin 10 ml 01/17/19 18:09 01/18/19 06:37 Diabetic Tussin Dm - PO 10 ml Q4H PRN Administration COUGH Heparin Sodium (Porcine) 5,000 unit 01/12/19 22:00 01/18/19 10:02 Heparin - SQ 5,000 unit BID LETICIA Administration Hydralazine HCl 10 mg 01/12/19 22:00 01/18/19 06:33 Apresoline - PO 10 mg TID LETICIA Administration Piperacillin Sod/Tazobactam 50 mls @ 100 mls/hr 01/13/19 18:00 01/18/19 09:58 Sod 3.375 gm/ Dextrose IVPB 100 mls/hr Q8H-IV LETICIA Administration Protocol Insulin Aspart 1 vial 01/12/19 22:00 01/18/19 11:54 Novolog Vial Sliding Scale - SQ 6 units ACHS LETICIA Administration Protocol Lactobacillus Acidophilus 1 tab 01/13/19 10:00 01/18/19 10:03 Bacid - PO 1 tab DAILY LETICIA Administration Levothyroxine Sodium 112 mcg 01/13/19 07:00 01/18/19 06:33 Synthroid - PO 112 mcg DAILY@0700 LETICIA Administration Lisinopril 20 mg 01/12/19 22:00 01/18/19 10:02 Prinivil PO 20 mg BID LETICIA Administration Mupirocin 1 applic 01/18/19 10:00 01/18/19 11:55 Bactroban 2% Ointment - TP 1 applic DAILY LETICIA Administration Senna 1 tab 01/12/19 20:43 Senna - PO DAILY PRN CONSTIPATION Vancomycin HCl 1,000 mg 01/13/19 19:00 01/17/19 18:42 Vancomycin (Pre-Docked) IVPB 1,000 mg DAILY@1900 LETICIA Administration Protocol Zinc Sulfate 220 mg 01/13/19 10:00 01/18/19 10:02 Orazinc - PO 220 mg DAILY LETICIA Administration ASSESSMENT AND PLAN: This is an 83 year old woman with a history of type 2 DM, HTN, hyperlipidemia, hypothyroidism who was sent to the ED from wound care because of ulcers of her left 1st toe. 1. Cellulitis and osteomyelitis of left 1st toe - Continue Zosyn, vancomycin, topical Bactroban - Wound culture growing alpha hemolytic Strep, E. faecalis, Corynebacterium - Patient refusing amputation - ID follow-up - will likely need PICC, SNF for long-term antibiotics 2. HTN - Continue lisinopril, hydralazine, Norvasc 3. Type 2 DM - Continue Novolog sliding scale 4. Hyperlipidemia - Continue Trilipix 5. Hypothyroidism - Continue Synthroid
--- NOTE | 2019-01-18 17:02 | PN ---
Progress Note (short form) - Note Progress Note: Vascular Surgery spoke to pt at beside. left great toe ulcer with bone destruction. Explained to pt that amputation would be long lasting solution for pt, rather than a debridement carmelita. Pt refusing amputation right now. Gomez wynne in wound care clinic wt dr mena. Darrion Vasquez DO
[2019-01-18] MEDS: VANCOMYCIN 1 GM in D5W (PRE-DOCKED) 1,000 MG/250 ML IVPB SCH (18:50)
[2019-01-19] MEDS ORDERED: DEXTROSE 5%-WATER - 50 ML IVPB ONE ×3 (01:25→18:06)
[2019-01-19] MEDS ORDERED: PIPERACILLIN/TAZOBACTAM 3.375 GM VIAL IVPB ONE ×3 (01:25→18:06)
[2019-01-19] MEDS: PIPERACILLIN/TAZOB 3.375 GM 3.375 GM in DEXTROSE 5%-WATER - 50 ML IVPB SCH ×3 (01:43→18:11)
[2019-01-19] MEDS ORDERED: PT OWN MED DRAWER 7, Y5N ONE ×5 (04:05→18:07)
[2019-01-19] MEDS: guaiFENesin/D-M SUGAR-FREE/ACLHOL-FREE 118 ML BOTTLE PO PRN (04:06)
[2019-01-19] MEDS: INSULIN SLIDING SCALE (NOVOLOG) 1 VIAL SQ SCH ×4 (06:24→22:25)
[2019-01-19] MEDS: hydrALAZINE HCL 10 MG TABLET PO SCH ×3 (06:24→22:18)
[2019-01-19] MEDS: LEVOTHYROXINE NA 112 MCG TABLET (FP) PO SCH (06:24)
[2019-01-19] MEDS ORDERED: LIDOCAINE HCL 2% (20ML MULTI-DOSE VIAL) NR ONE (07:20)
[2019-01-19 07:33] LABS: MCHC 32.4 g/dl (32.0-36.0); MEAN CELL VOLUME 80.5 fl (80-96); MEAN PLT VOLUME 8.6 fl (7.5-11.1); PLATELET COUNT 300 K/MM3 (134-434); RBC 3.47 M/mm3 (3.60-5.2); RDW 15.7 % (11.6-15.6); WHITE BLOOD COUNT 7.4 K/mm3 (4.0-10.0)
[2019-01-19] MEDS ORDERED: PROPOFOL 20 ML ONE (07:51)
[2019-01-19] MEDS ORDERED: MIDAZOLAM HCL 2 MG/2 ML SINGLE DOSE VIAL ONE (07:51)
[2019-01-19] MEDS ORDERED: fentaNYL CITRATE 250 MCG/5 ML VIAL ONE (07:51)
[2019-01-19] MEDS ORDERED: LIDOCAINE HCL/PF 2% SDV 5ML VIAL ONE (07:51)
--- NOTE | 2019-01-19 07:53 | PN ---
Progress Note (short form) - Note Progress Note: Podiatry Pre-op Note: Seen/evaluated in holding NAD. Risks benefits and alternatives to surgery discussed at length. Patient still refusing amputation and is in agreement with incision and drainage with bone biopsy. For operative procedure with IV sedation/local. Izabella Marquez DPM
[2019-01-19 08:08] LABS: ANION GAP 5 MMOL/L (8-16); BLOOD UREA NITROGEN 15 mg/dL (7-18); CALCIUM 8.9 mg/dL (8.5-10.1); CHLORIDE 103 mmol/L (98-107); CO2 25 mmol/L (21-32); CREATININE 1.1 mg/dL (0.55-1.3); GLUCOSE,RANDOM 212 mg/dL (74-106); MAGNESIUM 1.9 mg/dL (1.8-2.4); PHOSPHOROUS 2.8 mg/dL (2.5-4.9); POTASSIUM 4.8 mmol/L (3.5-5.1); SODIUM 133 mmol/L (136-145)
[2019-01-19] MEDS ORDERED: LIDOCAINE HCL 2% (50ML VIAL) NR ONE (08:16)
--- NOTE | 2019-01-19 09:20 | OP ---
Operative Note - Note: Operative Date: 01/19/19 Pre-Operative Diagnosis: Left great toe diabetic infection, abscess and osteomyelitis Operation: Left great toe incision and drainage of abscess with bone biopsy Post-Operative Diagnosis: Same as Pre-op Surgeon: Erasto Marquez Anesthesia: Local, MAC Specimens Removed: bone left great toe Estimated Blood Loss (mls): 25 Instrument used (Debridements only): #15 blade scalpel, scissors and forceps Operative Report Dictated: Yes
[2019-01-19] MEDS ORDERED: ONDANSETRON 4 MG/2 ML VIAL IVPUSH PRN (09:21)
[2019-01-19] MEDS ORDERED: SODIUM CHLORIDE 1,000 ML IV SCH (09:30)
[2019-01-19] MEDS ORDERED: DOCUSATE SODIUM 100 MG CAPSULE (FP) PO PRN (09:35)
[2019-01-19] MEDS ORDERED: SENNOSIDES 8.6MG TABLET (FP) PO PRN (09:35)
[2019-01-19] MEDS ORDERED: ACETAMINOPHEN 325 MG TABLET (FP) PO PRN (09:35)
--- NOTE | 2019-01-19 09:46 | OP ---
DATE OF OPERATION: 01/19/2019 PREOPERATIVE DIAGNOSIS: Left great toe diabetic infection, abscess, and osteomyelitis. POSTOPERATIVE DIAGNOSIS: Left great toe diabetic infection, abscess, and osteomyelitis. PROCEDURE: Left great toe incision and drainage with bone biopsy. SURGEON: Erasto Marquez DPM METAL WEATHER STRIPPER: None. ANESTHESIA: IV sedation with local. HEMOSTASIS: Surgical dissection. ESTIMATED BLOOD LOSS: 25 mL. PATHOLOGY: Bone, left great toe. DESCRIPTION OF PROCEDURE: The patient was brought to the operating room and placed on the operating table in the supine position. Following the induction of IV sedation, local anesthesia was achieved utilizing 6 mL of 2% lidocaine plain. The left foot was scrubbed, prepped, and draped in the usual aseptic fashion. Attention was directed to the left great toe where several diabetic ulcers with purulent drainage and fluctuance down to bone was visualized and appreciated. I began by performing a 4-cm curvilinear incision on the plantar aspect of the toe. Upon incision, there was deep purulence as well as an infected flexor tendon with extensive liquefactive tissue. This infection was deep to the fascia and down to the bone. All devitalized infected abscess tissue was subsequently removed utilizing forceps scissors and 15 blade scalpel until there was healthy granular tissue persistent. Next, I palpated the distal phalanx of the hallux with a [place] elevator, which was noted to be soft, friable, and indicative of an acute bone infection. Sagittal saw was used to resect a portion of the distal aspect of the distal phalanx. This was gently released from its deep soft tissue attachments and removed from the operative field. The surgical site was copiously irrigated with sterile saline, a wound culture was obtained, and the portion of bone that was removed from the operative site was sectioned for both bone culture and bone biopsy. The surgical site was again copiously irrigated with sterile saline. The great toe was coapted and maintained after packing with 0.25-inch Iodoform packing. The incision was coapted and maintained utilizing 3-0 nylon in a simple interrupted suture fashion. Following the conclusion of the procedure, the surgical site was covered with Xeroform, and a sterile compressive dressing was applied to the left foot consisting of sterile gauze, Allison, Kerlix, and an Jose wrap. The patient tolerated the procedure and anesthesia well without complications. She was transferred from the operating room to the recovery unit with vital signs stable and neurovasculature intact to the left foot. ROME LOYA/[id number] cc: [facility]
[2019-01-19] MEDS: LACTOBACILLUS ACIDOPHILUS 1 TABLET PO SCH (10:40)
[2019-01-19] MEDS: amLODIPine BESYLATE 10 MG TABLET (FP) PO SCH (10:40)
[2019-01-19] MEDS: ASPIRIN 81 MG CHEWABLE TABLETS PO SCH (10:40)
[2019-01-19] MEDS: CLOPIDOGREL BISULFATE 75 MG TABLET (FP) PO SCH (10:41)
[2019-01-19] MEDS: CALCIUM 500MG/VIT-D 200 UNITS COMBO TABLET (FP) PO SCH (10:42)
[2019-01-19] MEDS: ZINC SULFATE 220 MG CAPSULE (FP) PO SCH (10:42)
[2019-01-19] MEDS: LISINOPRIL 20 MG TABLET (FP) PO SCH ×2 (10:42→22:18)
[2019-01-19] MEDS: HEPARIN NA (PORCINE) 5,000 UNITS/ML 1ML VIAL SQ SCH ×2 (10:42→22:18)
[2019-01-19] MEDS: FENOFIBRIC ACID 45 MG CAP PO SCH (10:43)
[2019-01-19] MEDS: MUPIROCIN 2% TOPICAL OINTMENT 22 GM TUBE TP SCH (10:45)
--- NOTE | 2019-01-19 16:48 | PN ---
Physical Exam: SUBJECTIVE: Patient seen and examined at bedside this morning. No acute events overnight. OBJECTIVE: Vital Signs Temperature 98.9 F 01/19/19 15:03 Pulse Rate 50 L 01/19/19 15:03 Respiratory Rate 18 01/19/19 15:03 Blood Pressure 132/53 L 01/19/19 15:03 O2 Sat by Pulse Oximetry (%) 99 01/19/19 10:00 GENERAL: Awake, alert, and fully oriented, in no acute distress. HEAD: Normal with no signs of trauma. EYES: PERRLA, EOMI, sclera anicteric, conjunctiva clear. EARS, NOSE, THROAT: oropharynx clear without exudates. Moist mucous membranes. NECK: Normal range of motion, supple LUNGS: Breath sounds equal, clear to auscultation bilaterally. HEART: Bradycardia, normal S1 and S2 ABDOMEN: Soft, nontender, not distended, normoactive bowel sounds. MUSCULOSKELETAL: Normal range of motion at all joints. UPPER EXTREMITIES: 2+ pulses, warm, well-perfused. No peripheral edema. LOWER EXTREMITIES: 2+ pulses, warm, well-perfused. No peripheral edema. LLE: + erythema just around the foot (improved), no warmth or tenderness, +multiple ulcers on plantar side of left great toe. NEUROLOGICAL: Cranial nerves II-XII intact. Normal speech. Gait not observed. PSYCHIATRIC: Cooperative. Good eye contact. Appropriate mood and affect. SKIN: Warm, dry, normal turgor, no rashes or lesions noted. Laboratory Results - last 24 hr 01/18/19 01/18/19 01/19/19 17:08 21:38 06:23 WBC RBC Hgb Hct MCV MCH MCHC RDW Plt Count MPV Sodium Potassium Chloride Carbon Dioxide Anion Gap BUN Creatinine Creat Clearance w eGFR POC Glucometer 266 281 216 Random Glucose Calcium Phosphorus Magnesium 01/19/19 01/19/19 01/19/19 06:35 06:35 10:55 WBC 7.4 RBC 3.47 L Hgb 9.0 L Hct 28.0 L MCV 80.5 MCH 26.0 MCHC 32.4 RDW 15.7 H Plt Count 300 MPV 8.6 Sodium 133 L Potassium 4.8 Chloride 103 Carbon Dioxide 25 Anion Gap 5 L BUN 15 Creatinine 1.1 Creat Clearance w eGFR 47.67 POC Glucometer 221 Random Glucose 212 H Calcium 8.9 Phosphorus 2.8 Magnesium 1.9 Active Medications Generic Name Dose Route Start Last Admin Trade Name Freq PRN Reason Stop Dose Admin Acetaminophen 650 mg 01/19/19 09:35 Tylenol - PO Q6H PRN FEVER Amlodipine Besylate 10 mg 01/19/19 10:00 01/19/19 10:40 Norvasc - PO 10 mg DAILY [facility] Administration Aspirin 81 mg 01/19/19 10:00 01/19/19 10:40 Asa - PO 81 mg DAILY [facility] Administration Calcium Carbonate/Cholecalciferol 1 tab 01/19/19 10:00 01/19/19 10:42 Os-Oskar 500+D - PO 1 tab DAILY [facility] Administration Clopidogrel Bisulfate 75 mg 01/19/19 10:00 01/19/19 10:41 Plavix - PO 75 mg DAILY [facility] Administration Docusate Sodium 100 mg 01/19/19 09:35 Colace - PO DAILY PRN CONSTIPATION Fenofibric Acid 45 mg 01/19/19 10:00 01/19/19 10:43 Trilipix - PO 45 mg DAILY [facility] Administration Guaifenesin 10 ml 01/19/19 09:35 Diabetic Tussin Dm - PO Q4H PRN COUGH Heparin Sodium (Porcine) 5,000 unit 01/19/19 10:00 01/19/19 10:42 Heparin - SQ 5,000 unit BID [facility] Administration Hydralazine HCl 10 mg 01/19/19 14:00 01/19/19 14:39 Apresoline - PO 10 mg TID [facility] Administration Piperacillin Sod/Tazobactam 50 mls @ 100 mls/hr 01/19/19 10:00 01/19/19 10:44 Sod 3.375 gm/ Dextrose IVPB 100 mls/hr Q8H-IV [facility] Administration Protocol Vancomycin HCl 1 gm in 200 mls @ 133.333 mls/hr 01/19/19 19:00 Vancomycin 1 Gm Premix - IVPB DAILY@1900 [facility] Insulin Aspart 1 vial 01/19/19 11:00 01/19/19 12:02 Novolog Vial Sliding Scale - SQ 4 units ACHS [facility] Administration Protocol Lactobacillus Acidophilus 1 tab 01/19/19 10:00 01/19/19 10:40 Bacid - PO 1 tab DAILY [facility] Administration Levothyroxine Sodium 112 mcg 01/20/19 07:00 Synthroid - PO DAILY@0700 [facility] Lisinopril 20 mg 01/19/19 10:00 01/19/19 10:42 Prinivil PO 20 mg BID [facility] Administration Mupirocin 1 applic 01/19/19 10:00 01/19/19 10:45 Bactroban 2% Ointment - TP Not Given DAILY [facility] Senna 1 tab 01/19/19 09:35 Senna - PO DAILY PRN CONSTIPATION Zinc Sulfate 220 mg 01/19/19 10:00 01/19/19 10:42 Orazinc - PO 220 mg DAILY [facility] Administration -Left foot xray: Slightly displaced fracture at the base of the first distal phalanx, medially involving the articular surface. Significant osteopenia is limiting evaluation of the bone and focal bone destruction within the lateral aspect of the first distal phalanx could not be entirely excluded. Significant soft tissue swelling. -CTA abdomen with BLE runoff: Erosive changes of the first toe on the left with soft tissue edema. Three vessel runoff bilaterally. -Left LE MRI: Severe soft tissue edema of the first toe. Open wound along the plantar lateral aspect of the first toe at the level of the interphalangeal joint with serpiginous fluid collection along the plantar lateral aspect of the toe and proximally is extending medially. Destruction of the distal aspect of the proximal phalanx and the base of the distal phalanx of the first toe with marked bone marrow edema of the proximal and distal phalanges consistent with osteomyelitis. ASSESSMENT/PLAN: Patient is an 83 year old female with past medical history of DM, HTN, HLD, hypothyroidism, presented from wound care clinic due to left great toe ulcers. #Left great toe ulcers with left LE cellulitis -Wound cultures - alpha hemolytic strep, E. faecalis, Corynebacterium/ Diphtheroid -POD 0: Left great toe incision and drainage of abscess with bone biopsy -Bone cultures pending -Vascular surgery (Dr. Vasquez) consulted. Recommendations appreciated. -Podiatry (Dr. Marquez) consulted. Recommendations appreciated. -IV antibiotics, continue local wound care -Amputation strongly recommended but patient still refusing at this time. -ID (Dr. Young) consulted. -Will continue Vanc/Zosyn (Day 8) while awaiting cultures -Tylenol PRN for pain -Discussed with Dr. Perera, if patient will be discharged on prolonged antibiotics with a PICC line, may be discharged on IV unasyn 3gm q6h. -Pending snf approval #Anemia -Iron studies, retic count -will continue to monitor H/H #DM -Will hold Metformin and Glipizide -HbA1c - 7.8 -Insulin sliding scale -BGM ACHS #Hypertension -Continue Lisinopril 20mg BID -Amlodipine 10mg daily -Hydralazine 10mg TID #Hypothyroidism -Continue home Synthroid 112mcg daily #FEN -Not on any standing fluids -Encourage increased oral fluid intake -Electrolytes wnl, routine bmp monitoring -Diabetic diet. #Prophylaxis -Heparin 5000unit sq bid #disposition -full code -med surg -awaiting approval of patient's SNF Visit type - Emergency Visit Emergency Visit: Yes ED Registration Date: 01/12/19 Care time: The patient presented to the Emergency Department on the above date and was hospitalized for further evaluation of their emergent condition. - New Patient This patient is new to me today: No - Critical Care Critical Care patient: No
--- NOTE | 2019-01-19 17:48 | PN ---
Teaching Attending Note Name of Resident: Arti Chong ATTENDING PHYSICIAN STATEMENT I saw and evaluated the patient. I reviewed the resident's note and discussed the case with the resident. I agree with the resident's findings and plan as documented. SUBJECTIVE: Patient has no complaints. OBJECTIVE: Vital Signs Period Temp Pulse Resp BP Sys/Torre Pulse Ox Last 24 Hr 97.8 F-98.9 F 50-57 15-20 129-153/47-92 96-100 HEART: S1S2, RRR LUNGS: Clear ABDOMEN: Obese, soft, non-tender, non-distended, normal BS EXTREMITIES: Left 1st toe swollen with several plantar ulcers Laboratory Results - last 24 hr 01/18/19 01/19/19 01/19/19 21:38 06:23 06:35 WBC 7.4 RBC 3.47 L Hgb 9.0 L Hct 28.0 L MCV 80.5 MCH 26.0 MCHC 32.4 RDW 15.7 H Plt Count 300 MPV 8.6 Sodium Potassium Chloride Carbon Dioxide Anion Gap BUN Creatinine Creat Clearance w eGFR POC Glucometer 281 216 Random Glucose Calcium Phosphorus Magnesium 01/19/19 01/19/19 06:35 10:55 WBC RBC Hgb Hct MCV MCH MCHC RDW Plt Count MPV Sodium 133 L Potassium 4.8 Chloride 103 Carbon Dioxide 25 Anion Gap 5 L BUN 15 Creatinine 1.1 Creat Clearance w eGFR 47.67 POC Glucometer 221 Random Glucose 212 H Calcium 8.9 Phosphorus 2.8 Magnesium 1.9 Current Medications Generic Name Dose Route Start Last Admin Trade Name Freq PRN Reason Stop Dose Admin Acetaminophen 650 mg 01/19/19 09:35 Tylenol - PO Q6H PRN FEVER Amlodipine Besylate 10 mg 01/19/19 10:00 01/19/19 10:40 Norvasc - PO 10 mg DAILY [facility] Administration Aspirin 81 mg 01/19/19 10:00 01/19/19 10:40 Asa - PO 81 mg DAILY [facility] Administration Calcium Carbonate/Cholecalciferol 1 tab 01/19/19 10:00 01/19/19 10:42 Os-Oskar 500+D - PO 1 tab DAILY [facility] Administration Clopidogrel Bisulfate 75 mg 01/19/19 10:00 01/19/19 10:41 Plavix - PO 75 mg DAILY [facility] Administration Docusate Sodium 100 mg 01/19/19 09:35 Colace - PO DAILY PRN CONSTIPATION Fenofibric Acid 45 mg 01/19/19 10:00 01/19/19 10:43 Trilipix - PO 45 mg DAILY [facility] Administration Guaifenesin 10 ml 01/19/19 09:35 Diabetic Tussin Dm - PO Q4H PRN COUGH Heparin Sodium (Porcine) 5,000 unit 01/19/19 10:00 01/19/19 10:42 Heparin - SQ 5,000 unit BID [facility] Administration Hydralazine HCl 10 mg 01/19/19 14:00 01/19/19 14:39 Apresoline - PO 10 mg TID [facility] Administration Piperacillin Sod/Tazobactam 50 mls @ 100 mls/hr 01/19/19 10:00 01/19/19 10:44 Sod 3.375 gm/ Dextrose IVPB 100 mls/hr Q8H-IV [facility] Administration Protocol Vancomycin HCl 1 gm in 200 mls @ 133.333 mls/hr 01/19/19 19:00 Vancomycin 1 Gm Premix - IVPB DAILY@1900 [facility] Insulin Aspart 1 vial 01/19/19 11:00 01/19/19 12:02 Novolog Vial Sliding Scale - SQ 4 units ACHS [facility] Administration Protocol Lactobacillus Acidophilus 1 tab 01/19/19 10:00 01/19/19 10:40 Bacid - PO 1 tab DAILY [facility] Administration Levothyroxine Sodium 112 mcg 01/20/19 07:00 Synthroid - PO DAILY@0700 [facility] Lisinopril 20 mg 01/19/19 10:00 01/19/19 10:42 Prinivil PO 20 mg BID [facility] Administration Mupirocin 1 applic 01/19/19 10:00 01/19/19 10:45 Bactroban 2% Ointment - TP Not Given DAILY [facility] Senna 1 tab 01/19/19 09:35 Senna - PO DAILY PRN CONSTIPATION Zinc Sulfate 220 mg 01/19/19 10:00 01/19/19 10:42 Orazinc - PO 220 mg DAILY [facility] Administration ASSESSMENT AND PLAN: This is an 83 year old woman with a history of type 2 DM, HTN, hyperlipidemia, hypothyroidism who was sent to the ED from wound care because of ulcers of her left 1st toe. 1. Cellulitis, abscess, and osteomyelitis of left 1st toe - s/p I&D, bone biopsy today - Continue Zosyn, vancomycin, topical Bactroban - Wound culture (01/13) growing alpha hemolytic Strep, E. faecalis, Corynebacterium - Follow-up wound and bone cultures from today - Patient refusing amputation - Will need PICC, SNF for long-term antibiotics 2. HTN - Continue lisinopril, hydralazine, Norvasc 3. Type 2 DM - Metformin, glipizide held - Continue Novolog sliding scale 4. Hyperlipidemia - Continue Trilipix 5. Hypothyroidism - Continue Synthroid
[2019-01-19] MEDS: VANCOMYCIN 1 GM PREMIX - 1 GM/200 ML BAG IVPB SCH (18:11)
[2019-01-19] MEDS ORDERED: ACETAMINOPHEN 325 MG TABLET (FP) PO ONE (18:25)
[2019-01-19] MEDS ORDERED: VANCOMYCIN 1 GM in D5W (PRE-DOCKED) 1,000 MG/250 ML IVPB SCH (19:00)
[2019-01-20] MEDS ORDERED: DEXTROSE 5%-WATER - 50 ML IVPB ONE ×3 (00:52→18:06)
[2019-01-20] MEDS ORDERED: PIPERACILLIN/TAZOBACTAM 3.375 GM VIAL IVPB ONE ×3 (00:52→18:06)
[2019-01-20] MEDS: PIPERACILLIN/TAZOB 3.375 GM 3.375 GM in DEXTROSE 5%-WATER - 50 ML IVPB SCH ×3 (01:02→18:18)
[2019-01-20] MEDS: hydrALAZINE HCL 10 MG TABLET PO SCH ×3 (06:20→21:53)
[2019-01-20] MEDS: INSULIN SLIDING SCALE (NOVOLOG) 1 VIAL SQ SCH ×4 (06:27→21:58)
[2019-01-20] MEDS: LEVOTHYROXINE NA 112 MCG TABLET (FP) PO SCH (06:30)
--- NOTE | 2019-01-20 07:32 | PN ---
Progress Note (short form) - Note Progress Note: Podiatry F/U: Seen/evaluated at bedside NAD. Pain controlled, denies F/V/N/C/SOB/CP. Afebrile. S/p left great toe I&D bone biopsy POD#1. LATONIA: L foot: dressing C/D/I, no active bleeding, packing in place. Sutures coapted, no dehiscence noted. Small area of sanguinous drainage from packing site, no purulent drainage, no fluctuance, no soft tissue crepitus, no streaking cellulitis, no signs of active infection OR Cx: pending Imp: 83 year old diabetic female s/p L great toe I&D bone biopsy POD#1 1. IV abx per ID 2. Packing pulled, DSD L foot 3. Partial WB L foot with surgical shoe 4. F/u OR cultures 5. Will follow Izabella Marquez DPM
[2019-01-20 07:34] LABS: HEMATOCRIT 26.5 % (32.4-45.2); HEMOGLOBIN 8.7 GM/dL (10.7-15.3); MCH 26.2 pg (25.7-33.7); MCHC 32.7 g/dl (32.0-36.0); MEAN CELL VOLUME 80.3 fl (80-96); MEAN PLT VOLUME 8.4 fl (7.5-11.1); PLATELET COUNT 288 K/MM3 (134-434); RDW 15.4 % (11.6-15.6); WHITE BLOOD COUNT 6.3 K/mm3 (4.0-10.0)
[2019-01-20 07:54] LABS: ANION GAP 6 MMOL/L (8-16); BLOOD UREA NITROGEN 16 mg/dL (7-18); CALCIUM 8.6 mg/dL (8.5-10.1); CHLORIDE 106 mmol/L (98-107); CO2 26 mmol/L (21-32); CREATININE 1.1 mg/dL (0.55-1.3); GLUCOSE,RANDOM 153 mg/dL (74-106); PHOSPHOROUS 2.8 mg/dL (2.5-4.9); POTASSIUM 4.4 mmol/L (3.5-5.1); SODIUM 138 mmol/L (136-145)
[2019-01-20] MEDS ORDERED: PT OWN MED DRAWER 7, Y5N ONE ×2 (10:26→18:06)
--- NOTE | 2019-01-20 10:29 | PN ---
Progress Note (short form) - Note Progress Note: Anesthesia postop note, POD#1. S/P I&D of abscess and bone biopsy of left great toe . Under MAC. Pat seen and examined. VSS. Pain well controlled. No apparent post anesthesia complications. Continued care as per primary team.
[2019-01-20] MEDS: CALCIUM 500MG/VIT-D 200 UNITS COMBO TABLET (FP) PO SCH (10:34)
[2019-01-20] MEDS: CLOPIDOGREL BISULFATE 75 MG TABLET (FP) PO SCH (10:34)
[2019-01-20] MEDS: ZINC SULFATE 220 MG CAPSULE (FP) PO SCH (10:34)
[2019-01-20] MEDS: amLODIPine BESYLATE 10 MG TABLET (FP) PO SCH (10:34)
[2019-01-20] MEDS: ASPIRIN 81 MG CHEWABLE TABLETS PO SCH (10:34)
[2019-01-20] MEDS: LISINOPRIL 20 MG TABLET (FP) PO SCH ×2 (10:34→21:53)
[2019-01-20] MEDS: LACTOBACILLUS ACIDOPHILUS 1 TABLET PO SCH (10:35)
[2019-01-20] MEDS: HEPARIN NA (PORCINE) 5,000 UNITS/ML 1ML VIAL SQ SCH ×2 (10:39→21:53)
[2019-01-20] MEDS: MUPIROCIN 2% TOPICAL OINTMENT 22 GM TUBE TP SCH (10:39)
[2019-01-20] MEDS: FENOFIBRIC ACID 45 MG CAP PO SCH (10:40)
--- NOTE | 2019-01-20 14:18 | PN ---
Physical Exam: SUBJECTIVE: Patient seen and examined at bedside this morning. No acute events overnight. Patient has no complaints of pain on the foot. She also reports improvement of cough. Denies fever chill, headache, dizziness, chest pain, SOB, abdominal pain, diarrhea, urinary symptoms. OBJECTIVE: Vital Signs Temperature 98.3 F 01/20/19 06:00 Pulse Rate 48 L 01/20/19 06:00 Respiratory Rate 20 01/20/19 06:00 Blood Pressure 128/57 L 01/20/19 06:00 O2 Sat by Pulse Oximetry (%) 99 01/19/19 21:00 GENERAL: Awake, alert, and fully oriented, in no acute distress. HEAD: Normal with no signs of trauma. EYES: PERRLA, EOMI, sclera anicteric, conjunctiva clear. EARS, NOSE, THROAT: oropharynx clear without exudates. Moist mucous membranes. NECK: Normal range of motion, supple LUNGS: Breath sounds equal, clear to auscultation bilaterally. HEART: Bradycardia, normal S1 and S2 ABDOMEN: Soft, nontender, not distended, normoactive bowel sounds. MUSCULOSKELETAL: Normal range of motion at all joints. UPPER EXTREMITIES: 2+ pulses, warm, well-perfused. No peripheral edema. LOWER EXTREMITIES: 2+ pulses, warm, well-perfused. No peripheral edema. LLE: dressing clean dry and intact, no surrounding erythema or edema NEUROLOGICAL: Cranial nerves II-XII intact. Normal speech. Gait not observed. PSYCHIATRIC: Cooperative. Good eye contact. Appropriate mood and affect. SKIN: Warm, dry, normal turgor, no rashes or lesions noted. Laboratory Results - last 24 hr 01/19/19 01/19/19 01/20/19 18:00 22:23 06:22 WBC RBC Hgb Hct MCV MCH MCHC RDW Plt Count MPV Sodium Potassium Chloride Carbon Dioxide Anion Gap BUN Creatinine Creat Clearance w eGFR POC Glucometer 273 277 147 Random Glucose Calcium Phosphorus Magnesium Random Vancomycin 01/20/19 01/20/19 01/20/19 07:00 07:00 11:35 WBC 6.3 RBC 3.30 L Hgb 8.7 L Hct 26.5 L MCV 80.3 MCH 26.2 MCHC 32.7 RDW 15.4 Plt Count 288 MPV 8.4 Sodium 138 Potassium 4.4 Chloride 106 Carbon Dioxide 26 Anion Gap 6 L BUN 16 Creatinine 1.1 Creat Clearance w eGFR 47.67 POC Glucometer Random Glucose 153 H Calcium 8.6 Phosphorus 2.8 Magnesium 2.0 Random Vancomycin 14.6 L 01/20/19 12:02 WBC RBC Hgb Hct MCV MCH MCHC RDW Plt Count MPV Sodium Potassium Chloride Carbon Dioxide Anion Gap BUN Creatinine Creat Clearance w eGFR POC Glucometer 229 Random Glucose Calcium Phosphorus Magnesium Random Vancomycin Active Medications Generic Name Dose Route Start Last Admin Trade Name Freq PRN Reason Stop Dose Admin Acetaminophen 650 mg 01/19/19 09:35 Tylenol - PO Q6H PRN FEVER Amlodipine Besylate 10 mg 01/19/19 10:00 01/20/19 10:34 Norvasc - PO 10 mg DAILY [facility] Administration Aspirin 81 mg 01/19/19 10:00 01/20/19 10:34 Asa - PO 81 mg DAILY [facility] Administration Calcium Carbonate/Cholecalciferol 1 tab 01/19/19 10:00 01/20/19 10:34 Os-Oskar 500+D - PO 1 tab DAILY [facility] Administration Clopidogrel Bisulfate 75 mg 01/19/19 10:00 01/20/19 10:34 Plavix - PO 75 mg DAILY [facility] Administration Docusate Sodium 100 mg 01/19/19 09:35 Colace - PO DAILY PRN CONSTIPATION Fenofibric Acid 45 mg 01/19/19 10:00 01/20/19 10:40 Trilipix - PO 45 mg DAILY [facility] Administration Guaifenesin 10 ml 01/19/19 09:35 Diabetic Tussin Dm - PO Q4H PRN COUGH Heparin Sodium (Porcine) 5,000 unit 01/19/19 10:00 01/20/19 10:39 Heparin - SQ 5,000 unit BID [facility] Administration Hydralazine HCl 10 mg 01/19/19 14:00 01/20/19 13:31 Apresoline - PO 10 mg TID [facility] Administration Piperacillin Sod/Tazobactam 50 mls @ 100 mls/hr 01/19/19 10:00 01/20/19 10:35 Sod 3.375 gm/ Dextrose IVPB 100 mls/hr Q8H-IV [facility] Administration Protocol Vancomycin HCl 1 gm in 200 mls @ 133.333 mls/hr 01/19/19 19:00 01/19/19 18:11 Vancomycin 1 Gm Premix - IVPB 133.333 mls/hr DAILY@1900 [facility] Administration Insulin Aspart 1 vial 01/19/19 11:00 01/20/19 12:14 Novolog Vial Sliding Scale - SQ 4 units ACHS [facility] Administration Protocol Lactobacillus Acidophilus 1 tab 01/19/19 10:00 01/20/19 10:35 Bacid - PO 1 tab DAILY [facility] Administration Levothyroxine Sodium 112 mcg 01/20/19 07:00 01/20/19 06:30 Synthroid - PO 112 mcg DAILY@0700 [facility] Administration Lisinopril 20 mg 01/19/19 10:00 01/20/19 10:34 Prinivil PO 20 mg BID [facility] Administration Mupirocin 1 applic 01/19/19 10:00 01/20/19 10:39 Bactroban 2% Ointment - TP Not Given DAILY [facility] Senna 1 tab 01/19/19 09:35 01/20/19 10:34 Senna - PO 1 tab DAILY [facility]N Administration CONSTIPATION Zinc Sulfate 220 mg 01/19/19 10:00 01/20/19 10:34 Orazinc - PO 220 mg DAILY [facility] Administration -Left foot xray: Slightly displaced fracture at the base of the first distal phalanx, medially involving the articular surface. Significant osteopenia is limiting evaluation of the bone and focal bone destruction within the lateral aspect of the first distal phalanx could not be entirely excluded. Significant soft tissue swelling. -CTA abdomen with BLE runoff: Erosive changes of the first toe on the left with soft tissue edema. Three vessel runoff bilaterally. -Left LE MRI: Severe soft tissue edema of the first toe. Open wound along the plantar lateral aspect of the first toe at the level of the interphalangeal joint with serpiginous fluid collection along the plantar lateral aspect of the toe and proximally is extending medially. Destruction of the distal aspect of the proximal phalanx and the base of the distal phalanx of the first toe with marked bone marrow edema of the proximal and distal phalanges consistent with osteomyelitis. ASSESSMENT/PLAN: Patient is an 83 year old female with past medical history of DM, HTN, HLD, hypothyroidism, presented from wound care clinic due to left great toe ulcers. #Left great toe ulcers with left LE cellulitis -Wound cultures - alpha hemolytic strep, E. faecalis, Corynebacterium/ Diphtheroid -POD 1: Left great toe incision and drainage of abscess with bone biopsy -Bone cultures staph coag neg, gram neg -Vascular surgery (Dr. Vasquez) consulted. Recommendations appreciated. -Podiatry (Dr. Marquez) consulted. Recommendations appreciated. -IV antibiotics, continue local wound care -Amputation strongly recommended but patient still refusing at this time. -ID (Dr. Young) consulted. -Vanc level 14.6 -Will continue Vanc/Zosyn (Day9) while awaiting cultures -Tylenol PRN for pain -Discussed with Dr. Perera, if patient will be discharged on prolonged antibiotics with a PICC line, may be discharged on IV unasyn 3gm q6h. -Pending detention approval #Anemia -Iron studies, retic count -will continue to monitor H/H #DM -Will hold Metformin and Glipizide -HbA1c - 7.8 -Insulin sliding scale -BGM ACHS #Hypertension -Continue Lisinopril 20mg BID -Amlodipine 10mg daily -Hydralazine 10mg TID #Hypothyroidism -Continue home Synthroid 112mcg daily #FEN -Not on any standing fluids -Encourage increased oral fluid intake -Electrolytes wnl, routine bmp monitoring -Diabetic diet. #Prophylaxis -Heparin 5000unit sq bid #disposition -full code -med surg -awaiting approval of patient's SNF Visit type - Emergency Visit Emergency Visit: Yes ED Registration Date: 01/12/19 Care time: The patient presented to the Emergency Department on the above date and was hospitalized for further evaluation of their emergent condition. - New Patient This patient is new to me today: No - Critical Care Critical Care patient: No
--- NOTE | 2019-01-20 16:57 | PN ---
Teaching Attending Note Name of Resident: Arti Chong ATTENDING PHYSICIAN STATEMENT I saw and evaluated the patient. I reviewed the resident's note and discussed the case with the resident. I agree with the resident's findings and plan as documented. SUBJECTIVE: no fever or chills. No pain OBJECTIVE: NAD CV: RRR 3/6 Sm atbase, LLSB and apex lungs: CTAB Ext : no edema or erythema o n R foot and leg. refused L foot exam. slight edema on lower L leg ASSESSMENT AND PLAN: 83 y/o lady with h/o DM, HTN, HLP, Hypothyroidism and other medical problems who presented with an ulcer on her L big toe. 1- infected ulcer and abscess with OM of L big toe: s/p i&D and bone BX . declined amputation -prelim cx reviewed. - cont vanco and zosyn ( trough obtained ) - PICC line on discharge day - CTA with LE run off reviewed. 2- Dm : cont sSI . hold po meds 3- HTN: cont home meds 4- Hyothyroidism and HLP: cont home meds DVT PX : increase heparin to TID HLOC
[2019-01-20] MEDS: VANCOMYCIN 1 GM PREMIX - 1 GM/200 ML BAG IVPB SCH (18:54)
[2019-01-20] MEDS ORDERED: INSULIN (NOVOLOG) ASPART 100 UNITS/ML 10ML VIAL ONE (21:48)
[2019-01-21] MEDS ORDERED: PIPERACILLIN/TAZOBACTAM 3.375 GM VIAL IVPB ONE ×3 (00:45→17:02)
[2019-01-21] MEDS ORDERED: DEXTROSE 5%-WATER - 50 ML IVPB ONE ×3 (00:45→17:02)
[2019-01-21] MEDS: PIPERACILLIN/TAZOB 3.375 GM 3.375 GM in DEXTROSE 5%-WATER - 50 ML IVPB SCH ×3 (01:01→17:18)
[2019-01-21] MEDS: HEPARIN NA (PORCINE) 5,000 UNITS/ML 1ML VIAL SQ SCH ×3 (05:58→21:46)
[2019-01-21] MEDS: hydrALAZINE HCL 10 MG TABLET PO SCH ×3 (05:58→21:46)
[2019-01-21] MEDS: INSULIN SLIDING SCALE (NOVOLOG) 1 VIAL SQ SCH ×4 (05:59→21:53)
[2019-01-21] MEDS: LEVOTHYROXINE NA 112 MCG TABLET (FP) PO SCH (05:59)
[2019-01-21] MEDS ORDERED: INSULIN (NOVOLOG) ASPART 100 UNITS/ML 10ML VIAL ONE ×3 (06:40→21:52)
[2019-01-21 07:25] LABS: HEMATOCRIT 28.4 % (32.4-45.2); MCH 25.8 pg (25.7-33.7); MCHC 31.8 g/dl (32.0-36.0); MEAN CELL VOLUME 80.9 fl (80-96); MEAN PLT VOLUME 8.7 fl (7.5-11.1); PLATELET COUNT 289 K/MM3 (134-434); RBC 3.51 M/mm3 (3.60-5.2); RDW 15.6 % (11.6-15.6)
[2019-01-21 07:44] LABS: ANION GAP 6 MMOL/L (8-16); BLOOD UREA NITROGEN 19 mg/dL (7-18); CALCIUM 9.1 mg/dL (8.5-10.1); CHLORIDE 106 mmol/L (98-107); CO2 24 mmol/L (21-32); CREATININE 1.2 mg/dL (0.55-1.3); GLUCOSE,RANDOM 215 mg/dL (74-106); PHOSPHOROUS 2.7 mg/dL (2.5-4.9); POTASSIUM 4.6 mmol/L (3.5-5.1); SODIUM 135 mmol/L (136-145)
[2019-01-21] MEDS: ZINC SULFATE 220 MG CAPSULE (FP) PO SCH (10:20)
[2019-01-21] MEDS: LACTOBACILLUS ACIDOPHILUS 1 TABLET PO SCH (10:20)
[2019-01-21] MEDS: ASPIRIN 81 MG CHEWABLE TABLETS PO SCH (10:21)
[2019-01-21] MEDS: LISINOPRIL 20 MG TABLET (FP) PO SCH ×2 (10:21→21:46)
[2019-01-21] MEDS: CALCIUM 500MG/VIT-D 200 UNITS COMBO TABLET (FP) PO SCH (10:21)
[2019-01-21] MEDS: CLOPIDOGREL BISULFATE 75 MG TABLET (FP) PO SCH (10:21)
[2019-01-21] MEDS: amLODIPine BESYLATE 10 MG TABLET (FP) PO SCH (10:21)
[2019-01-21] MEDS: FENOFIBRIC ACID 45 MG CAP PO SCH (10:22)
[2019-01-21] MEDS: guaiFENesin/D-M SUGAR-FREE/ACLHOL-FREE 118 ML BOTTLE PO PRN ×4 (10:26→23:46)
[2019-01-21] MEDS: MUPIROCIN 2% TOPICAL OINTMENT 22 GM TUBE TP SCH (10:27)
--- NOTE | 2019-01-21 11:40 | PN ---
Physical Exam: SUBJECTIVE: Patient seen and examined. She has no complaints. OBJECTIVE: Vital Signs Period Temp Pulse Resp BP Sys/Torre Pulse Ox Last 24 Hr 97.9 F-98.3 F 48-63 18-18 145-155/56-62 97 GENERAL: The patient is awake, alert, and fully oriented, in no acute distress. LUNGS: Breath sounds equal, clear to auscultation bilaterally, no wheezes, no crackles, no accessory muscle use. HEART: Regular rate and rhythm, S1, S2, (+) 2/6 SM. ABDOMEN: Obese, soft, nontender, nondistended, normoactive bowel sounds, no guarding, no rebound, no hepatosplenomegaly, no masses. EXTREMITIES: 2+ pulses, warm, well-perfused, no edema, left foot wrapped. Laboratory Results - last 24 hr 01/20/19 01/20/19 01/20/19 11:35 12:02 17:28 WBC RBC Hgb Hct MCV MCH MCHC RDW Plt Count MPV Sodium Potassium Chloride Carbon Dioxide Anion Gap BUN Creatinine Creat Clearance w eGFR POC Glucometer 229 233 Random Glucose Calcium Phosphorus Magnesium Random Vancomycin 14.6 L 01/20/19 01/21/19 01/21/19 21:56 05:45 06:00 WBC 6.0 RBC 3.51 L Hgb 9.0 L Hct 28.4 L MCV 80.9 MCH 25.8 MCHC 31.8 L RDW 15.6 Plt Count 289 MPV 8.7 Sodium Potassium Chloride Carbon Dioxide Anion Gap BUN Creatinine Creat Clearance w eGFR POC Glucometer 306 210 Random Glucose Calcium Phosphorus Magnesium Random Vancomycin 01/21/19 01/21/19 06:00 10:30 WBC RBC Hgb Hct MCV MCH MCHC RDW Plt Count MPV Sodium 135 L Potassium 4.6 Chloride 106 Carbon Dioxide 24 Anion Gap 6 L BUN 19 H Creatinine 1.2 Creat Clearance w eGFR 43.12 POC Glucometer 243 Random Glucose 215 H Calcium 9.1 Phosphorus 2.7 Magnesium 2.0 Random Vancomycin Active Medications Generic Name Dose Route Start Last Admin Trade Name Freq PRN Reason Stop Dose Admin Acetaminophen 650 mg 01/19/19 09:35 Tylenol - PO Q6H PRN FEVER Amlodipine Besylate 10 mg 01/19/19 10:00 01/21/19 10:21 Norvasc - PO 10 mg DAILY LETICIA Administration Aspirin 81 mg 01/19/19 10:00 01/21/19 10:21 Asa - PO 81 mg DAILY LETICIA Administration Calcium Carbonate/Cholecalciferol 1 tab 01/19/19 10:00 01/21/19 10:21 Os-Oskar 500+D - PO 1 tab DAILY LETICIA Administration Clopidogrel Bisulfate 75 mg 01/19/19 10:00 01/21/19 10:21 Plavix - PO 75 mg DAILY LETICIA Administration Docusate Sodium 100 mg 01/19/19 09:35 Colace - PO DAILY PRN CONSTIPATION Fenofibric Acid 45 mg 01/19/19 10:00 01/21/19 10:22 Trilipix - PO 45 mg DAILY LETICIA Administration Guaifenesin 10 ml 01/19/19 09:35 01/21/19 10:26 Diabetic Tussin Dm - PO 10 ml Q4H PRN Administration COUGH Heparin Sodium (Porcine) 5,000 unit 01/20/19 22:00 01/21/19 05:58 Heparin - SQ 5,000 unit TID LETICIA Administration Hydralazine HCl 10 mg 01/19/19 14:00 01/21/19 05:58 Apresoline - PO 10 mg TID LETICIA Administration Piperacillin Sod/Tazobactam 50 mls @ 100 mls/hr 01/19/19 10:00 01/21/19 10:22 Sod 3.375 gm/ Dextrose IVPB 100 mls/hr Q8H-IV LETICIA Administration Protocol Vancomycin HCl 1 gm in 200 mls @ 133.333 mls/hr 01/19/19 19:00 01/20/19 18:54 Vancomycin 1 Gm Premix - IVPB 133.333 mls/hr DAILY@1900 LETICIA Administration Insulin Aspart 1 vial 01/19/19 11:00 01/21/19 05:59 Novolog Vial Sliding Scale - SQ 4 units ACHS LETICIA Administration Protocol Lactobacillus Acidophilus 1 tab 01/19/19 10:00 01/21/19 10:20 Bacid - PO 1 tab DAILY LETICIA Administration Levothyroxine Sodium 112 mcg 01/20/19 07:00 01/21/19 05:59 Synthroid - PO 112 mcg DAILY@0700 LETICIA Administration Lisinopril 20 mg 01/19/19 10:00 01/21/19 10:21 Prinivil PO 20 mg BID LETICIA Administration Mupirocin 1 applic 01/19/19 10:00 01/21/19 10:27 Bactroban 2% Ointment - TP 1 appful DAILY LETICIA Administration Senna 1 tab 01/19/19 09:35 01/20/19 10:34 Senna - PO 1 tab DAILY PRN Administration CONSTIPATION Zinc Sulfate 220 mg 01/19/19 10:00 01/21/19 10:20 Orazinc - PO 220 mg DAILY LETICIA Administration ASSESSMENT/PLAN: This is an 83 year old woman with a history of type 2 DM, HTN, hyperlipidemia, hypothyroidism who was sent to the ED from wound care because of ulcers of her left 1st toe. 1. Cellulitis, abscess, and osteomyelitis of left 1st toe - s/p I&D, bone biopsy today - Continue Zosyn, vancomycin, topical Bactroban - Wound culture (01/13) growing alpha hemolytic Strep, E. faecalis, Corynebacterium - Wound culture from OR (01/19) growing coagulase positive Staph - Bone culture (01/19) growing MSSA, coagulase negative Staph, Pseudomonas - Patient refusing amputation - Will need PICC, SNF for long-term antibiotics 2. HTN - Continue lisinopril, hydralazine, Norvasc 3. Type 2 DM - Metformin, glipizide held - Continue Novolog sliding scale 4. Hyperlipidemia - Continue Trilipix 5. Hypothyroidism - Continue Synthroid 6. DVT prophylaxis - On heparin subq Visit type - Emergency Visit Emergency Visit: Yes ED Registration Date: 01/12/19 Care time: The patient presented to the Emergency Department on the above date and was hospitalized for further evaluation of their emergent condition. - New Patient This patient is new to me today: No - Critical Care Critical Care patient: No - Discharge Referral Referred to [facility] Med [facility] No
--- NOTE | 2019-01-21 13:42 | PN ---
Progress Note (short form) - Note Progress Note: Podiatry F/U: Seen/evaluated at bedside NAD. Pain controlled, denies F/V/N/C/SOB/CP. Afebrile. S/p L great toe I&D with bone biopsy. LATONIA: L foot: dressing C/D/I, no active bleeding. Sutures loosely coapted, no dehiscence, fibrogranular wound base, no purulence, no fluctuance, no streaking cellulitis, no signs of acute infection. OR Cx: MSSA, pseudomonas IMp: 83 year old diabetic female s/p L great toe I&D and bone biopsy 1. Abx per ID 2. DSD L foot 3. PICC line for IV abx therapy 4. SNF 5. Partial WB L heel with surgical shoe 6. Bactroban to surgical site with DSD daily 7. Upon d/c will f/u with me in wound healing center Izabella Marquez DPM
[2019-01-21] MEDS: VANCOMYCIN 1 GM PREMIX - 1 GM/200 ML BAG IVPB SCH (19:03)
[2019-01-22] MEDS ORDERED: PIPERACILLIN/TAZOBACTAM 3.375 GM VIAL IVPB ONE ×3 (01:18→16:51)
[2019-01-22] MEDS ORDERED: DEXTROSE 5%-WATER - 50 ML IVPB ONE ×3 (01:18→16:51)
[2019-01-22] MEDS: PIPERACILLIN/TAZOB 3.375 GM 3.375 GM in DEXTROSE 5%-WATER - 50 ML IVPB SCH ×3 (02:04→17:32)
[2019-01-22] MEDS: guaiFENesin/D-M SUGAR-FREE/ACLHOL-FREE 118 ML BOTTLE PO PRN ×5 (05:35→22:55)
[2019-01-22] MEDS: LEVOTHYROXINE NA 112 MCG TABLET (FP) PO SCH (06:12)
[2019-01-22] MEDS: hydrALAZINE HCL 10 MG TABLET PO SCH ×3 (06:12→22:54)
[2019-01-22] MEDS: INSULIN SLIDING SCALE (NOVOLOG) 1 VIAL SQ SCH ×4 (06:12→22:53)
[2019-01-22] MEDS: HEPARIN NA (PORCINE) 5,000 UNITS/ML 1ML VIAL SQ SCH ×3 (06:12→22:54)
[2019-01-22] MEDS ORDERED: PT OWN MED DRAWER 7, Y5N ONE ×3 (10:13→18:52)
[2019-01-22] MEDS: amLODIPine BESYLATE 10 MG TABLET (FP) PO SCH (10:14)
[2019-01-22] MEDS: LACTOBACILLUS ACIDOPHILUS 1 TABLET PO SCH (10:14)
[2019-01-22] MEDS: ASPIRIN 81 MG CHEWABLE TABLETS PO SCH (10:14)
[2019-01-22] MEDS: CALCIUM 500MG/VIT-D 200 UNITS COMBO TABLET (FP) PO SCH ×2 (10:15→18:57)
[2019-01-22] MEDS: LISINOPRIL 20 MG TABLET (FP) PO SCH ×2 (10:15→22:54)
[2019-01-22] MEDS: ZINC SULFATE 220 MG CAPSULE (FP) PO SCH ×2 (10:15→18:56)
[2019-01-22] MEDS: CLOPIDOGREL BISULFATE 75 MG TABLET (FP) PO SCH (10:15)
[2019-01-22] MEDS: FENOFIBRIC ACID 45 MG CAP PO SCH ×2 (10:15→18:58)
[2019-01-22] MEDS ORDERED: INSULIN (NOVOLOG) ASPART 100 UNITS/ML 10ML VIAL ONE ×2 (11:08→18:52)
--- NOTE | 2019-01-22 11:13 | PATH ---
Surgical Pathology Report Patient Name: ELISE SAMUELS Med. Rec. #: [id number] /Age/Gender: 1935 (Age: 83) / F Account: [id number] Location: [address] [place] [address]/[facility] Taken: 01/19/2019 Received: 01/19/2019 Reported: 01/22/2019 Physicians: ROME De Los Santos MD Specimen(s) Received BONE LEFT GREAT TOE Clinical History Left great toe abscess and osteomyelitis Final Diagnosis BONE, LEFT GREAT TOE, BIOPSY: CHRONIC OSTEOMYELITIS. Electronically Signed Jose Carlos Gibson M.D. Gross Description Received in formalin labeled "left great toe bone for biopsy," is a 2.0 x 1.4 x 0.3 cm aggregate of bo bone fragments. The formalin is filtered and the specimen is entirely submitted in one cassette. /01/19/2019 saudi/01/19/2019
[2019-01-22] MEDS: MUPIROCIN 2% TOPICAL OINTMENT 22 GM TUBE TP SCH (13:37)
--- NOTE | 2019-01-22 14:23 | PN ---
Teaching Attending Note Name of Resident: Arti Chong ATTENDING PHYSICIAN STATEMENT I saw and evaluated the patient. I reviewed the resident's note and discussed the case with the resident. I agree with the resident's findings and plan as documented. SUBJECTIVE: No fever or chills. No pain. has sore throat and cough . no sputum production. OBJECTIVE: NAD CV: RRR 3/6 Sm atbase, LLSB and apex lungs: CTAB Ext : no edema or erythema on R foot and leg. no edema or erythema on L leg. L foot with an ulcer on plantar aspect of the R bog toe . stitches ASSESSMENT AND PLAN: 83 y/o lady with h/o DM, HTN, HLP, Hypothyroidism and other medical problems who presented with an ulcer on her L big toe. 1- infected ulcer and abscess with OM of L big toe: s/p i&D and bone BX . declined amputation - bone cx reviewed. wound cx still pending - cont zosyn - decision on Abx to be decided pending final cx - PICC line on discharge day 2- DM: cont SSI. hold po meds 3- HTN: cont home meds 4- Hyothyroidism and HLP: cont home meds DVT PX: heparin sq dispo : dc pending final cx .
--- NOTE | 2019-01-22 17:35 | PN ---
Progress Note (short form) - Note Progress Note: s/p incision and drainage of toe abscess with bone biopsy, refused amputation- dressing intact Vital Signs Period Temp Pulse Resp BP Sys/Torre Pulse Ox Last 24 Hr 98 F-98.3 F 48-54 18-18 126-154/55-68 99 cor-rrr lungs clear abd soft,nt ext dressing intact minimal erythema of the leg CBC, BMP 01/21/19 06:00 01/21/19 06:00 a/p cellulitis of the LLE resolved s/p drainage of abscess and bone biopsy plan to adjust antiibotics after bone biopsy is back continue zosyn, d/c vancomycin d/w resident repeat esr/crp in am Problem List - Problems (1) Left leg cellulitis Code(s): L03.116 - CELLULITIS OF LEFT LOWER LIMB (2) Type 2 diabetes mellitus with foot ulcer Code(s): E11.621 - TYPE 2 DIABETES MELLITUS WITH FOOT ULCER; L97.509 - NON- PRESSURE CHRONIC ULCER OTH PRT UNSP FOOT W UNSP SEVERITY (3) Osteomyelitis Code(s): M86.9 - OSTEOMYELITIS, UNSPECIFIED
--- NOTE | 2019-01-22 17:42 | PN ---
Physical Exam: SUBJECTIVE: Patient seen and examined at bedside this morning. no acute events overnight. Patient still reports coughing but with improvement. In the afternoon, paged by nurse, patient's IV infiltrated. Evaluated patient with swelling in the right forearm but denies any discomfort on the affected area. advised to keep arm elevated. OBJECTIVE: Vital Signs Temperature 98.3 F 01/22/19 14:06 Pulse Rate 54 L 01/22/19 13:14 Respiratory Rate 18 01/22/19 13:14 Blood Pressure 126/55 L 01/22/19 13:14 O2 Sat by Pulse Oximetry (%) 99 01/21/19 21:00 GENERAL: Awake, alert, and fully oriented, in no acute distress. HEAD: Normal with no signs of trauma. EYES: PERRLA, EOMI, sclera anicteric, conjunctiva clear. EARS, NOSE, THROAT: oropharynx clear without exudates. Moist mucous membranes. NECK: Normal range of motion, supple LUNGS: Breath sounds equal, clear to auscultation bilaterally. HEART: Bradycardia, normal S1 and S2 ABDOMEN: Soft, nontender, not distended, normoactive bowel sounds. MUSCULOSKELETAL: Normal range of motion at all joints. UPPER EXTREMITIES: 2+ pulses, warm, well-perfused. No peripheral edema. LOWER EXTREMITIES: 2+ pulses, warm, well-perfused. No peripheral edema. LLE: dressing clean and dry, sutures intact, no surrounding erythema, tenderness or edema NEUROLOGICAL: Cranial nerves II-XII intact. Normal speech. Gait not observed. PSYCHIATRIC: Cooperative. Good eye contact. Appropriate mood and affect. SKIN: Warm, dry, normal turgor, no rashes or lesions noted. Laboratory Results - last 24 hr 01/21/19 01/21/19 01/22/19 17:16 21:43 06:11 POC Glucometer 229 251 214 01/22/19 11:05 POC Glucometer 235 Active Medications Generic Name Dose Route Start Last Admin Trade Name Freq PRN Reason Stop Dose Admin Acetaminophen 650 mg 01/19/19 09:35 Tylenol - PO Q6H PRN FEVER Amlodipine Besylate 10 mg 01/19/19 10:00 01/22/19 10:14 Norvasc - PO 10 mg DAILY LETICIA Administration Aspirin 81 mg 01/19/19 10:00 01/22/19 10:14 Asa - PO 81 mg DAILY LETICIA Administration Calcium Carbonate/Cholecalciferol 1 tab 01/19/19 10:00 01/22/19 10:15 Os-Oskar 500+D - PO 1 tab DAILY LETICIA Administration Clopidogrel Bisulfate 75 mg 01/19/19 10:00 01/22/19 10:15 Plavix - PO 75 mg DAILY LETICIA Administration Docusate Sodium 100 mg 01/19/19 09:35 Colace - PO DAILY PRN CONSTIPATION Fenofibric Acid 45 mg 01/19/19 10:00 01/22/19 10:15 Trilipix - PO 45 mg DAILY LETICIA Administration Guaifenesin 10 ml 01/19/19 09:35 01/22/19 14:56 Diabetic Tussin Dm - PO 10 ml Q4H PRN Administration COUGH Heparin Sodium (Porcine) 5,000 unit 01/20/19 22:00 01/22/19 13:32 Heparin - SQ 5,000 unit TID LETICIA Administration Hydralazine HCl 10 mg 01/19/19 14:00 01/22/19 13:32 Apresoline - PO 10 mg TID LETICIA Administration Piperacillin Sod/Tazobactam 50 mls @ 100 mls/hr 01/19/19 10:00 01/22/19 11:14 Sod 3.375 gm/ Dextrose IVPB 100 mls/hr Q8H-IV LETICIA Administration Protocol Insulin Aspart 1 vial 01/19/19 11:00 01/22/19 11:13 Novolog Vial Sliding Scale - SQ 4 units ACHS LETICIA Administration Protocol Lactobacillus Acidophilus 1 tab 01/19/19 10:00 01/22/19 10:14 Bacid - PO 1 tab DAILY LETICIA Administration Levothyroxine Sodium 112 mcg 01/20/19 07:00 01/22/19 06:12 Synthroid - PO 112 mcg DAILY@0700 LETICIA Administration Lisinopril 20 mg 01/19/19 10:00 01/22/19 10:15 Prinivil PO 20 mg BID LETICIA Administration Mupirocin 1 applic 01/22/19 10:00 01/22/19 13:37 Bactroban 2% Ointment - TP 1 applic DAILY LETICIA Administration Senna 1 tab 01/19/19 09:35 01/20/19 10:34 Senna - PO 1 tab DAILY PRN Administration CONSTIPATION Zinc Sulfate 220 mg 01/19/19 10:00 01/22/19 10:15 Orazinc - PO 220 mg DAILY LETICIA Administration -Left foot xray: Slightly displaced fracture at the base of the first distal phalanx, medially involving the articular surface. Significant osteopenia is limiting evaluation of the bone and focal bone destruction within the lateral aspect of the first distal phalanx could not be entirely excluded. Significant soft tissue swelling. -CTA abdomen with BLE runoff: Erosive changes of the first toe on the left with soft tissue edema. Three vessel runoff bilaterally. -Left LE MRI: Severe soft tissue edema of the first toe. Open wound along the plantar lateral aspect of the first toe at the level of the interphalangeal joint with serpiginous fluid collection along the plantar lateral aspect of the toe and proximally is extending medially. Destruction of the distal aspect of the proximal phalanx and the base of the distal phalanx of the first toe with marked bone marrow edema of the proximal and distal phalanges consistent with osteomyelitis. ASSESSMENT/PLAN: Patient is an 83 year old female with past medical history of DM, HTN, HLD, hypothyroidism, presented from wound care clinic due to left great toe ulcers. #Left great toe ulcers with left LE cellulitis -Wound cultures - alpha hemolytic strep, E. faecalis, Corynebacterium/ Diphtheroid -POD 4: Left great toe incision and drainage of abscess with bone biopsy -Bone cultures s. aureus, S. capitis, Ps Aeruginosa -Vascular surgery (Dr. Vasquez) consulted. Recommendations appreciated. -Podiatry (Dr. Marquez) consulted. Recommendations appreciated. -IV antibiotics, continue local wound care -Partial WB L heel with surgical shoe -ID (Dr. Young) consulted. -Can discontinue Vancomycin -Will continue Zosyn (Day11) while awaiting cultures and sensitivities -Plan to adjust antibiotics after bone biopsy is back -Tylenol PRN for pain #Anemia: stable -Iron studies, retic count -will continue to monitor H/H #DM -Will hold Metformin and Glipizide -HbA1c - 7.8 -Insulin sliding scale -BGM ACHS #Hypertension -Continue Lisinopril 20mg BID -Amlodipine 10mg daily -Hydralazine 10mg TID #Hypothyroidism -Continue home Synthroid 112mcg daily #FEN -Not on any standing fluids -Encourage increased oral fluid intake -Electrolytes wnl, routine bmp monitoring -Diabetic diet. #Prophylaxis -Heparin 5000unit sq bid #disposition -full code -med surg Visit type - Emergency Visit Emergency Visit: Yes ED Registration Date: 01/12/19 Care time: The patient presented to the Emergency Department on the above date and was hospitalized for further evaluation of their emergent condition. - New Patient This patient is new to me today: No - Critical Care Critical Care patient: No
[2019-01-23] MEDS ORDERED: PIPERACILLIN/TAZOBACTAM 3.375 GM VIAL IVPB ONE ×3 (00:46→16:50)
[2019-01-23] MEDS ORDERED: DEXTROSE 5%-WATER - 50 ML IVPB ONE ×3 (00:46→16:50)
[2019-01-23] MEDS: PIPERACILLIN/TAZOB 3.375 GM 3.375 GM in DEXTROSE 5%-WATER - 50 ML IVPB SCH ×3 (02:15→17:16)
[2019-01-23] MEDS: guaiFENesin/D-M SUGAR-FREE/ACLHOL-FREE 118 ML BOTTLE PO PRN ×4 (04:24→20:28)
[2019-01-23] MEDS: LEVOTHYROXINE NA 112 MCG TABLET (FP) PO SCH (06:39)
[2019-01-23] MEDS: INSULIN SLIDING SCALE (NOVOLOG) 1 VIAL SQ SCH ×4 (06:39→22:46)
[2019-01-23] MEDS: hydrALAZINE HCL 10 MG TABLET PO SCH ×3 (06:39→22:42)
[2019-01-23] MEDS: HEPARIN NA (PORCINE) 5,000 UNITS/ML 1ML VIAL SQ SCH ×3 (06:39→22:42)
[2019-01-23 07:42] LABS: BASO % 1.8 % (0-2.0); EOS % 4.3 % (0-4.5); HEMATOCRIT 27.1 % (32.4-45.2); HEMOGLOBIN 8.7 GM/dL (10.7-15.3); LYMPH % 25.8 % (8-40); MCHC 32.1 g/dl (32.0-36.0); MEAN CELL VOLUME 81.2 fl (80-96); MEAN PLT VOLUME 8.7 fl (7.5-11.1); MONO % 8.7 % (3.8-10.2); NEUT % 59.4 % (42.8-82.8); PLATELET COUNT 279 K/MM3 (134-434); RBC 3.34 M/mm3 (3.60-5.2); RDW 15.7 % (11.6-15.6); WHITE BLOOD COUNT 5.6 K/mm3 (4.0-10.0)
[2019-01-23 07:57] LABS: ANION GAP 7 MMOL/L (8-16); BLOOD UREA NITROGEN 18 mg/dL (7-18); CHLORIDE 104 mmol/L (98-107); CO2 24 mmol/L (21-32); CREATININE 1.1 mg/dL (0.55-1.3); GLUCOSE,RANDOM 208 mg/dL (74-106); PHOSPHOROUS 2.9 mg/dL (2.5-4.9); POTASSIUM 4.6 mmol/L (3.5-5.1); SODIUM 135 mmol/L (136-145)
[2019-01-23] MEDS ORDERED: INSULIN (NOVOLOG) ASPART 100 UNITS/ML 10ML VIAL ONE ×2 (11:00→19:03)
[2019-01-23] MEDS: LISINOPRIL 20 MG TABLET (FP) PO SCH ×2 (11:11→22:42)
[2019-01-23] MEDS: amLODIPine BESYLATE 10 MG TABLET (FP) PO SCH (11:11)
[2019-01-23] MEDS: CLOPIDOGREL BISULFATE 75 MG TABLET (FP) PO SCH (11:11)
[2019-01-23] MEDS: ASPIRIN 81 MG CHEWABLE TABLETS PO SCH (11:12)
[2019-01-23] MEDS: ZINC SULFATE 220 MG CAPSULE (FP) PO SCH ×2 (11:12→18:55)
[2019-01-23] MEDS: LACTOBACILLUS ACIDOPHILUS 1 TABLET PO SCH (11:12)
[2019-01-23] MEDS: FENOFIBRIC ACID 45 MG CAP PO SCH ×2 (11:12→18:59)
[2019-01-23] MEDS: CALCIUM 500MG/VIT-D 200 UNITS COMBO TABLET (FP) PO SCH ×2 (11:12→18:57)
[2019-01-23] MEDS: MUPIROCIN 2% TOPICAL OINTMENT 22 GM TUBE TP SCH (13:53)
--- NOTE | 2019-01-23 15:27 | PN ---
Physical Exam: SUBJECTIVE: Patient seen and examined at bedside this morning. No acute events overnight. Patient reports cough is getting better. She denies pain in the left foot. Denies fever, chills, headache, dizziness, chest pain, SOB, abdominal pain , urinary symptoms. OBJECTIVE: Vital Signs Temperature 98.1 F 01/23/19 06:00 Pulse Rate 48 L 01/23/19 06:00 Respiratory Rate 20 01/23/19 06:00 Blood Pressure 114/68 01/23/19 06:00 O2 Sat by Pulse Oximetry (%) 98 01/22/19 21:00 GENERAL: Awake, alert, and fully oriented, in no acute distress. HEAD: Normal with no signs of trauma. EYES: PERRLA, EOMI, sclera anicteric, conjunctiva clear. EARS, NOSE, THROAT: oropharynx clear without exudates. Moist mucous membranes. NECK: Normal range of motion, supple LUNGS: Breath sounds equal, clear to auscultation bilaterally. HEART: Bradycardia, normal S1 and S2 ABDOMEN: Soft, nontender, not distended, normoactive bowel sounds. MUSCULOSKELETAL: Normal range of motion at all joints. UPPER EXTREMITIES: 2+ pulses, warm, well-perfused. No peripheral edema. LOWER EXTREMITIES: 2+ pulses, warm, well-perfused. No peripheral edema. LLE: + serosanguinous drainage in the dressing, sutures intact, no surrounding erythema , tenderness or edema NEUROLOGICAL: Cranial nerves II-XII intact. Normal speech. Gait not observed. PSYCHIATRIC: Cooperative. Good eye contact. Appropriate mood and affect. SKIN: Warm, dry, normal turgor, no rashes or lesions noted. Laboratory Results - last 24 hr 01/22/19 01/22/19 01/23/19 17:29 22:45 06:38 WBC RBC Hgb Hct MCV MCH MCHC RDW Plt Count MPV Absolute Neuts (auto) Neutrophils % Lymphocytes % Monocytes % Eosinophils % Basophils % Nucleated RBC % ESR Sodium Potassium Chloride Carbon Dioxide Anion Gap BUN Creatinine Creat Clearance w eGFR POC Glucometer 218 257 206 Random Glucose Calcium Phosphorus Magnesium C-Reactive Protein 01/23/19 01/23/19 01/23/19 07:00 07:00 07:00 WBC 5.6 RBC 3.34 L Hgb 8.7 L Hct 27.1 L MCV 81.2 MCH 26.0 MCHC 32.1 RDW 15.7 H Plt Count 279 MPV 8.7 Absolute Neuts (auto) 3.4 Neutrophils % 59.4 Lymphocytes % 25.8 D Monocytes % 8.7 Eosinophils % 4.3 D Basophils % 1.8 Nucleated RBC % 0 ESR 92 H Sodium 135 L Potassium 4.6 Chloride 104 Carbon Dioxide 24 Anion Gap 7 L BUN 18 Creatinine 1.1 Creat Clearance w eGFR 47.67 POC Glucometer Random Glucose 208 H Calcium 9.0 Phosphorus 2.9 Magnesium 2.0 C-Reactive Protein 2.2 H Active Medications Generic Name Dose Route Start Last Admin Trade Name Freq PRN Reason Stop Dose Admin Acetaminophen 650 mg 01/19/19 09:35 Tylenol - PO Q6H PRN FEVER Amlodipine Besylate 10 mg 01/19/19 10:00 01/23/19 11:11 Norvasc - PO 10 mg DAILY LETICIA Administration Aspirin 81 mg 01/19/19 10:00 01/23/19 11:12 Asa - PO 81 mg DAILY LETICIA Administration Calcium Carbonate/Cholecalciferol 1 tab 01/19/19 10:00 01/23/19 11:12 Os-Oskar 500+D - PO 1 tab DAILY LETICIA Administration Clopidogrel Bisulfate 75 mg 01/19/19 10:00 01/23/19 11:11 Plavix - PO 75 mg DAILY LETICIA Administration Docusate Sodium 100 mg 01/19/19 09:35 Colace - PO DAILY PRN CONSTIPATION Fenofibric Acid 45 mg 01/19/19 10:00 01/23/19 11:12 Trilipix - PO 45 mg DAILY LETICIA Administration Guaifenesin 10 ml 01/19/19 09:35 01/23/19 11:13 Diabetic Tussin Dm - PO 10 ml Q4H PRN Administration COUGH Heparin Sodium (Porcine) 5,000 unit 01/20/19 22:00 01/23/19 13:54 Heparin - SQ 5,000 unit TID LETICIA Administration Hydralazine HCl 10 mg 01/19/19 14:00 01/23/19 13:53 Apresoline - PO 10 mg TID LETICIA Administration Piperacillin Sod/Tazobactam 50 mls @ 100 mls/hr 01/19/19 10:00 01/23/19 11:04 Sod 3.375 gm/ Dextrose IVPB 100 mls/hr Q8H-IV LETICIA Administration Protocol Insulin Aspart 1 vial 01/19/19 11:00 01/23/19 11:39 Novolog Vial Sliding Scale - SQ 2 units ACHS LETICIA Administration Protocol Lactobacillus Acidophilus 1 tab 01/19/19 10:00 01/23/19 11:12 Bacid - PO 1 tab DAILY LETICIA Administration Levothyroxine Sodium 112 mcg 01/20/19 07:00 01/23/19 06:39 Synthroid - PO 112 mcg DAILY@0700 LETICIA Administration Lisinopril 20 mg 01/19/19 10:00 01/23/19 11:11 Prinivil PO 20 mg BID LETICIA Administration Mupirocin 1 applic 01/22/19 10:00 01/23/19 13:53 Bactroban 2% Ointment - TP 1 applic DAILY LETICIA Administration Senna 1 tab 01/19/19 09:35 01/20/19 10:34 Senna - PO 1 tab DAILY PRN Administration CONSTIPATION Zinc Sulfate 220 mg 01/19/19 10:00 01/23/19 11:12 Orazinc - PO 220 mg DAILY LETICIA Administration -Left foot xray: Slightly displaced fracture at the base of the first distal phalanx, medially involving the articular surface. Significant osteopenia is limiting evaluation of the bone and focal bone destruction within the lateral aspect of the first distal phalanx could not be entirely excluded. Significant soft tissue swelling. -CTA abdomen with BLE runoff: Erosive changes of the first toe on the left with soft tissue edema. Three vessel runoff bilaterally. -Left LE MRI: Severe soft tissue edema of the first toe. Open wound along the plantar lateral aspect of the first toe at the level of the interphalangeal joint with serpiginous fluid collection along the plantar lateral aspect of the toe and proximally is extending medially. Destruction of the distal aspect of the proximal phalanx and the base of the distal phalanx of the first toe with marked bone marrow edema of the proximal and distal phalanges consistent with osteomyelitis. ASSESSMENT/PLAN: Patient is an 83 year old female with past medical history of DM, HTN, HLD, hypothyroidism, presented from wound care clinic due to left great toe ulcers. #Left great toe ulcers with left LE cellulitis -POD 5: Left great toe incision and drainage of abscess with bone biopsy -Bone cultures s. aureus, S. capitis, Ps Aeruginosa -Vascular surgery (Dr. Vasquez) consulted. Recommendations appreciated. -Podiatry (Dr. Marquez) consulted. Recommendations appreciated. -IV antibiotics, continue local wound care -Partial WB L heel with surgical shoe -ID (Dr. Young) consulted. -Can discontinue Vancomycin -Will continue Zosyn (Day12) while awaiting cultures and sensitivities -Plan to adjust antibiotics after bone biopsy is back -Tylenol PRN for pain #Anemia: stable -Iron studies, retic count -will continue to monitor H/H #DM -Will hold Metformin and Glipizide -HbA1c - 7.8 -Insulin sliding scale -BGM ACHS #Hypertension -Continue Lisinopril 20mg BID -Amlodipine 10mg daily -Hydralazine 10mg TID #Hypothyroidism -Continue home Synthroid 112mcg daily #FEN -Not on any standing fluids -Encourage increased oral fluid intake -Electrolytes wnl, routine bmp monitoring -Diabetic diet. #Prophylaxis -Heparin 5000unit sq bid #disposition -full code -med surg Visit type - Emergency Visit Emergency Visit: Yes ED Registration Date: 01/12/19 Care time: The patient presented to the Emergency Department on the above date and was hospitalized for further evaluation of their emergent condition. - New Patient This patient is new to me today: No - Critical Care Critical Care patient: No
--- NOTE | 2019-01-23 15:36 | PN ---
Teaching Attending Note Name of Resident: Arti Chong ATTENDING PHYSICIAN STATEMENT I saw and evaluated the patient. I reviewed the resident's note and discussed the case with the resident. I agree with the resident's findings and plan as documented. SUBJECTIVE: No fever or chills. cough has improved no pain in foot OBJECTIVE: NAD CV: RRR 3/6 Sm at base, LLSB and apex lungs: CTAB Ext: no edema or erythema on R foot and leg. no edema or erythema on L leg. L foot with an ulcer on plantar aspect of the R big toe . stitches . sanguineous discharge ASSESSMENT AND PLAN: 83 y/o lady with h/o DM, HTN, HLP, Hypothyroidism and other medical problems who presented with an ulcer on her L big toe. 1- Infected ulcer and abscess with OM of L big toe: s/p I&D and bone BX . declined amputation - final culture is back and reviewed. Bone bx confirms OM - awaiting call back to d/w Id the Abx choice 2- DM: cont SSI. resume po meds at dc 3- HTN: cont home meds 4- Hyothyroidism and HLP: cont home meds DVT PX: heparin sq Dispo: dc pending decision on Abx otherwise medically ready
--- NOTE | 2019-01-23 17:08 | PN ---
Progress Note (short form) - Note Progress Note: s/p incision and drainage of toe abscess with bone biopsy, refused amputation- Vital Signs Period Temp Pulse Resp BP Sys/Torre Pulse Ox Last 24 Hr 97.5 F-98.5 F 42-55 20-20 114-153/45-94 98 cor-rrr lungs clear abd soft,nt ext toe is a bit boggy sutures intact and dry no erythema CBC, BMP 01/23/19 07:00 01/23/19 07:00 Microbiology 01/19/19 08:32 Toe - Left Hallux Gram Stain - Final 01/19/19 08:32 Toe - Left Hallux Wound Culture - Final Staphylococcus Coagulase Neg Diphtheroid/Corynebacterium 01/19/19 08:32 Bone Gram Stain - Final 01/19/19 08:32 Bone Tissue Culture - Final Staphylococcus Aureus Staphylococcus Capitis Pseudomonas Aeruginosa 01/19/19 08:32 Bone Anaerobic Culture - Final NO ANAEROBES WERE ISOLATED 01/13/19 14:48 Blood - Peripheral Venous Blood Culture - Final NO GROWTH AFTER 5 DAYS INCUBATION 01/13/19 14:58 Blood - Peripheral Venous Blood Culture - Final NO GROWTH AFTER 5 DAYS INCUBATION 01/13/19 Unknown Abscess Gram Stain - Final 01/13/19 Unknown Abscess Wound Culture - Final Alpha Hemolytic Streptococcus Enterococcus Faecalis Diphtheroid/Corynebacterium Laboratory Tests 01/12/19 01/12/19 01/23/19 17:27 17:27 07:00 ESR 97 H C-Reactive Protein 2.8 H 2.2 H 01/23/19 07:00 ESR 92 H C-Reactive Protein a/p cellulitis of the LLE resolved s/p drainage of abscess and bone biopsy cultures reviewed d/w hospitalist resume vancomycin, continue zosyn plan 6 weeks, picc line in am I can see her in wound care when she comes for f/u not sure the toe is salvageable but she wants to try Problem List - Problems (1) Left leg cellulitis Code(s): L03.116 - CELLULITIS OF LEFT LOWER LIMB (2) Type 2 diabetes mellitus with foot ulcer Code(s): E11.621 - TYPE 2 DIABETES MELLITUS WITH FOOT ULCER; L97.509 - NON- PRESSURE CHRONIC ULCER OTH PRT UNSP FOOT W UNSP SEVERITY (3) Osteomyelitis Code(s): M86.9 - OSTEOMYELITIS, UNSPECIFIED
[2019-01-23] MEDS ORDERED: PT OWN MED DRAWER 7, Y5N ONE ×2 (19:04→20:18)
[2019-01-23] MEDS: VANCOMYCIN 1 GM PREMIX - 1 GM/200 ML BAG IVPB SCH (20:28)
[2019-01-24] MEDS ORDERED: PIPERACILLIN/TAZOBACTAM 3.375 GM VIAL IVPB ONE ×3 (01:25→17:30)
[2019-01-24] MEDS ORDERED: DEXTROSE 5%-WATER - 50 ML IVPB ONE ×3 (01:26→17:31)
[2019-01-24] MEDS: PIPERACILLIN/TAZOB 3.375 GM 3.375 GM in DEXTROSE 5%-WATER - 50 ML IVPB SCH ×3 (02:03→17:35)
[2019-01-24] MEDS: guaiFENesin/D-M SUGAR-FREE/ACLHOL-FREE 118 ML BOTTLE PO PRN ×2 (03:05→13:16)
[2019-01-24] MEDS: hydrALAZINE HCL 10 MG TABLET PO SCH ×2 (06:17→14:15)
[2019-01-24] MEDS: HEPARIN NA (PORCINE) 5,000 UNITS/ML 1ML VIAL SQ SCH ×2 (06:18→14:15)
[2019-01-24] MEDS: LEVOTHYROXINE NA 112 MCG TABLET (FP) PO SCH (06:18)
[2019-01-24] MEDS: INSULIN SLIDING SCALE (NOVOLOG) 1 VIAL SQ SCH ×3 (06:24→17:33)
--- NOTE | 2019-01-24 07:23 | DS ---
Physical Exam: SUBJECTIVE: Patient seen and examined at bedside this morning. No acute events overnight. Patient has no new complaints. OBJECTIVE: Vital Signs Temperature 97.7 F 01/23/19 18:30 Pulse Rate 51 L 01/23/19 22:48 Respiratory Rate 20 01/23/19 22:48 Blood Pressure 137/53 L 01/23/19 22:48 O2 Sat by Pulse Oximetry (%) 97 01/23/19 21:00 PHYSICAL EXAM GENERAL: Awake, alert, and fully oriented, in no acute distress. HEAD: Normal with no signs of trauma. EYES: PERRLA, EOMI, sclera anicteric, conjunctiva clear. EARS, NOSE, THROAT: oropharynx clear without exudates. Moist mucous membranes. NECK: Normal range of motion, supple LUNGS: Breath sounds equal, clear to auscultation bilaterally. HEART: Bradycardia, normal S1 and S2 ABDOMEN: Soft, nontender, not distended, normoactive bowel sounds. MUSCULOSKELETAL: Normal range of motion at all joints. UPPER EXTREMITIES: 2+ pulses, warm, well-perfused. No peripheral edema. LOWER EXTREMITIES: 2+ pulses, warm, well-perfused. No peripheral edema. LLE: + clean dry intact dressing, sutures intact, no surrounding erythema, tenderness or edema NEUROLOGICAL: Cranial nerves II-XII intact. Normal speech. Gait not observed. PSYCHIATRIC: Cooperative. Good eye contact. Appropriate mood and affect. SKIN: Warm, dry, normal turgor, no rashes or lesions noted. LABS Laboratory Results - last 24 hr 01/23/19 01/23/19 01/23/19 07:00 07:00 07:00 WBC 5.6 RBC 3.34 L Hgb 8.7 L Hct 27.1 L MCV 81.2 MCH 26.0 MCHC 32.1 RDW 15.7 H Plt Count 279 MPV 8.7 Absolute Neuts (auto) 3.4 Neutrophils % 59.4 Lymphocytes % 25.8 D Monocytes % 8.7 Eosinophils % 4.3 D Basophils % 1.8 Nucleated RBC % 0 ESR 92 H Sodium 135 L Potassium 4.6 Chloride 104 Carbon Dioxide 24 Anion Gap 7 L BUN 18 Creatinine 1.1 Creat Clearance w eGFR 47.67 POC Glucometer Random Glucose 208 H Calcium 9.0 Phosphorus 2.9 Magnesium 2.0 C-Reactive Protein 2.2 H 01/23/19 01/23/19 01/23/19 11:36 17:12 22:44 WBC RBC Hgb Hct MCV MCH MCHC RDW Plt Count MPV Absolute Neuts (auto) Neutrophils % Lymphocytes % Monocytes % Eosinophils % Basophils % Nucleated RBC % ESR Sodium Potassium Chloride Carbon Dioxide Anion Gap BUN Creatinine Creat Clearance w eGFR POC Glucometer 200 215 266 Random Glucose Calcium Phosphorus Magnesium C-Reactive Protein 01/24/19 06:20 WBC RBC Hgb Hct MCV MCH MCHC RDW Plt Count MPV Absolute Neuts (auto) Neutrophils % Lymphocytes % Monocytes % Eosinophils % Basophils % Nucleated RBC % ESR Sodium Potassium Chloride Carbon Dioxide Anion Gap BUN Creatinine Creat Clearance w eGFR POC Glucometer 225 Random Glucose Calcium Phosphorus Magnesium C-Reactive Protein -Left foot xray: Slightly displaced fracture at the base of the first distal phalanx, medially involving the articular surface. Significant osteopenia is limiting evaluation of the bone and focal bone destruction within the lateral aspect of the first distal phalanx could not be entirely excluded. Significant soft tissue swelling. -CTA abdomen with BLE runoff: Erosive changes of the first toe on the left with soft tissue edema. Three vessel runoff bilaterally. -Left LE MRI: Severe soft tissue edema of the first toe. Open wound along the plantar lateral aspect of the first toe at the level of the interphalangeal joint with serpiginous fluid collection along the plantar lateral aspect of the toe and proximally is extending medially. Destruction of the distal aspect of the proximal phalanx and the base of the distal phalanx of the first toe with marked bone marrow edema of the proximal and distal phalanges consistent with osteomyelitis. HOSPITAL COURSE: Date of Admission:01/12/19 Date of Discharge: 01/24/19 Patient is an 83 year old female with past medical history of DM, HTN, HLD, hypothyroidism, presented from wound care clinic due to left great toe ulcers. Podiatry, vascular surgery and ID were consulted. MRI was done which showed osteomyelitis. Patient was started on Vancomycin 1gm daily and Zosyn 3.375g TID. Patient was recommended to have amputation, but adamantly refused the surgery. Debridement was done and bone biopsy were sent for culture, which grew S. aureus, S. capitis and Ps aeruginosa. Patient was discharged back to [facility]F with a PICC line to continue IV Vanc/Zosyn and was instructed to come back in 1 week at the wound care clinic to be evaluated by Dr. Marquez and Dr. Young. Minutes to complete discharge: 40 Discharge Summary Reason For Visit: CELLULITIS OF LT LOWER EXTREMITY Current Active Problems Left leg cellulitis (Acute) Osteomyelitis (Acute) Condition: Improved - Instructions Diet, Activity, Other Instructions: Your visit You were admitted to the hospital because your left great toe is infected. An MRI of the foot showed your bone was infected as well. You were evaluated by the foot doctor and debridement was done. You were given IV antibiotics, and will continue receiving it through a PICC line for 5 more weeks. Please repeat blood work every week. CBC, CMP and vancomycin trough level, CRP and ESR. results should be faxed to Dr. Young at [phone] Medications 1. Continue Vancomycin 1 gm daily for 5 weeks. 2. Continue Zosyn 3.375gm every 8 hours for 5 weeks. 2. Take Tylenol 650mg q6h as needed for pain. 3. Continue your home medications as prescribed. Care -Keep the wound clean and dry at all times -Apply Bactroban cream on the incision area daily -Dressing with dry gauze. change daily -Partial weight bearing on the left heel with surgical shoe -Follow up at the wound care clinic. Follow up -Please follow up with Dr. Marquez at the wound care clinic. you have an appointment next Tuesday, at January 30, 10:30am. you will be seen by Dr. Young in wound care center on 01/30. -Please follow up with Dr. Vasquez at the wound care clinic. Please call the office to schedule an appointment. Additional info Call 911 or go to the ED with any worsening fever, chills, headache, nausea, vomiting, chest pain, shortness of breath, belly pain, bloody stools, or any new concerns noted. Referrals: [facility] [place] [facility] [place] [Provider Group] Erasto Marquez MD [Staff Physician] - 01/30/19 10:30 am Brittni Young MD [Staff Physician] - Darrion Vasquez DO [Staff Physician] - Disposition: ASSISTED FACILITY - Home Medications Comprehensive Discharge Medication List: Ambulatory Orders Amlodipine Besylate 1 tab PO DAILY 01/12/19 Ascorbic Acid [Vitamin C] 500 mg PO DAILY 01/12/19 Aspirin [ASA -] 1 tab PO DAILY 01/12/19 Calcium Carbonate/Vitamin D3 [Calcium 500-Vit D3 600 Tablet] 1 tab PO DAILY 09/20 Clopidogrel Bisulfate [Plavix] 1 tab PO DAILY 01/12/19 Docusate Sodium [Colace] 1 tab PO DAILY PRN 01/12/19 Fenofibrate 40 mg PO DAILY 01/12/19 Glipizide 1 tab PO BID 01/12/19 Hydralazine HCl 10 mg PO TID 01/12/19 Lactobacillus Acidophilus [Bacid -] 1 tab PO DAILY 01/12/19 Levothyroxine [Synthroid -] 1 tab PO DAILY 01/12/19 Lisinopril 20 mg PO BID 01/12/19 Sennosides [Senna Laxative] 1 tab PO DAILY PRN 01/12/19 Zinc Sulfate [Zinc-15] 66 mg PO DAILY 01/12/19 Acetaminophen [Tylenol .Regular Strength -] 650 mg PO Q6H PRN tablet 01/23/19 Guaifenesin/D-Methorphan Hb [Diabetic Tussin Dm -] 10 ml PO Q4H PRN ml Mupirocin Ointment [Bactroban 2% Ointment -] 1 applic TP DAILY applic 01/23/19 Piperacillin/Tazob 3.375 gm [Zosyn -] 3.375 gm IVPB Q8H-IV 35 Days vial Vancomycin HCl in Dextrose 5 % [Vancomycin 1 Gram/250 ml-D5w] 1 gm IV DAILY 35 Days plast..bag 01/23/19 This patient is new to me today: No Emergency Visit: Yes ED Registration Date: 01/12/19 Care time: The patient presented to the Emergency Department on the above date and was hospitalized for further evaluation of their emergent condition. Critical Care patient: No - Discharge Referral Referred to [facility] No
[2019-01-24] MEDS: CALCIUM 500MG/VIT-D 200 UNITS COMBO TABLET (FP) PO SCH (10:13)
[2019-01-24] MEDS: LACTOBACILLUS ACIDOPHILUS 1 TABLET PO SCH (10:14)
[2019-01-24] MEDS: amLODIPine BESYLATE 10 MG TABLET (FP) PO SCH (10:14)
[2019-01-24] MEDS: LISINOPRIL 20 MG TABLET (FP) PO SCH (10:15)
[2019-01-24] MEDS: FENOFIBRIC ACID 45 MG CAP PO SCH (10:16)
[2019-01-24] MEDS: ZINC SULFATE 220 MG CAPSULE (FP) PO SCH (10:16)
[2019-01-24] MEDS: MUPIROCIN 2% TOPICAL OINTMENT 22 GM TUBE TP SCH (10:16)
[2019-01-24] MEDS: CLOPIDOGREL BISULFATE 75 MG TABLET (FP) PO SCH (11:00)
[2019-01-24] MEDS: ASPIRIN 81 MG CHEWABLE TABLETS PO SCH (11:00)
--- NOTE | 2019-01-24 11:44 | PN ---
Teaching Attending Note Name of Resident: Arti Chong ATTENDING PHYSICIAN STATEMENT I saw and evaluated the patient. I reviewed the resident's note and discussed the case with the resident. I agree with the resident's findings and plan as documented. SUBJECTIVE: Patient has no complaints. OBJECTIVE: Vital Signs Period Temp Pulse Resp BP Sys/Torre Pulse Ox Last 24 Hr 97.7 F-98.5 F 46-52 20-20 137-143/45-65 97 HEART: S1S2, RRR LUNGS: Clear ABDOMEN: Obese, soft, non-tender, non-distended, normal BS EXTREMITIES: No edema, ulcer of plantar surface base of left 1st toe Laboratory Results - last 24 hr 01/23/19 01/23/19 01/23/19 11:36 17:12 22:44 POC Glucometer 200 215 266 01/24/19 06:20 POC Glucometer 225 Current Medications Generic Name Dose Route Start Last Admin Trade Name Freq PRN Reason Stop Dose Admin Acetaminophen 650 mg 01/19/19 09:35 Tylenol - PO Q6H PRN FEVER Amlodipine Besylate 10 mg 01/19/19 10:00 01/24/19 10:14 Norvasc - PO 10 mg DAILY LETICIA Administration Aspirin 81 mg 01/19/19 10:00 01/23/19 11:12 Asa - PO 81 mg DAILY LETICIA Administration Calcium Carbonate/Cholecalciferol 1 tab 01/19/19 10:00 01/24/19 10:13 Os-Oskar 500+D - PO 1 tab DAILY LETICIA Administration Clopidogrel Bisulfate 75 mg 01/19/19 10:00 01/23/19 11:11 Plavix - PO 75 mg DAILY LETICIA Administration Docusate Sodium 100 mg 01/19/19 09:35 Colace - PO DAILY PRN CONSTIPATION Fenofibric Acid 45 mg 01/19/19 10:00 01/24/19 10:16 Trilipix - PO 45 mg DAILY LETICIA Administration Guaifenesin 10 ml 01/19/19 09:35 01/24/19 03:05 Diabetic Tussin Dm - PO 10 ml Q4H PRN Administration COUGH Heparin Sodium (Porcine) 5,000 unit 01/20/19 22:00 01/24/19 06:18 Heparin - SQ 5,000 unit TID LETICIA Administration Hydralazine HCl 10 mg 01/19/19 14:00 01/24/19 06:17 Apresoline - PO 10 mg TID LETICIA Administration Piperacillin Sod/Tazobactam 50 mls @ 100 mls/hr 01/19/19 10:00 01/24/19 10:17 Sod 3.375 gm/ Dextrose IVPB 100 mls/hr Q8H-IV LETICIA Administration Protocol Vancomycin HCl 1 gm in 200 mls @ 133.333 mls/hr 01/23/19 18:00 01/23/19 20:28 Vancomycin 1 Gm Premix - IVPB 133.333 mls/hr DAILY@1800 LETICIA Administration Protocol Insulin Aspart 1 vial 01/19/19 11:00 01/24/19 06:24 Novolog Vial Sliding Scale - SQ 4 units ACHS LETICIA Administration Protocol Lactobacillus Acidophilus 1 tab 01/19/19 10:00 01/24/19 10:14 Bacid - PO 1 tab DAILY LETICIA Administration Levothyroxine Sodium 112 mcg 01/20/19 07:00 01/24/19 06:18 Synthroid - PO 112 mcg DAILY@0700 LETICIA Administration Lisinopril 20 mg 01/19/19 10:00 01/24/19 10:15 Prinivil PO 20 mg BID LETICIA Administration Mupirocin 1 applic 01/22/19 10:00 01/24/19 10:16 Bactroban 2% Ointment - TP 1 applic DAILY LETICIA Administration Senna 1 tab 01/19/19 09:35 01/20/19 10:34 Senna - PO 1 tab DAILY PRN Administration CONSTIPATION Zinc Sulfate 220 mg 01/19/19 10:00 01/24/19 10:16 Orazinc - PO 220 mg DAILY LETICIA Administration ASSESSMENT AND PLAN: This is an 83 year old woman with a history of type 2 DM, HTN, hyperlipidemia, hypothyroidism who was sent to the ED from wound care because of ulcers of her left 1st toe. 1. Cellulitis, abscess, and osteomyelitis of left 1st toe - s/p I&D, bone biopsy 01/19 - Continue Zosyn, vancomycin, topical Bactroban - Wound culture (01/13) growing alpha hemolytic Strep, E. faecalis, Corynebacterium - Wound culture from [place] (01/19) growing coagulase negative Staph, Corynebacterium - Bone culture (01/19) growing MSSA, Staph capitis, Pseudomonas - Patient refusing amputation - Plan for PICC today to complete 6 weeks of Zosyn, Vancomycin - Follow-up in wound clinic 2. HTN - Continue lisinopril, hydralazine, Norvasc 3. Type 2 DM - Metformin, glipizide held - Continue Novolog sliding scale 4. Hyperlipidemia - Continue Trilipix 5. Hypothyroidism - Continue Synthroid 6. DVT prophylaxis - On heparin subq 7. Disposition - OK for discharge back to [facility] today
[2019-01-24] MEDS ORDERED: PT OWN MED DRAWER 7, Y5N ONE (12:36)
[2019-01-24 13:26] VITALS: BP 141/55; PULSE 54; TEMP 97.5
[2019-01-24] MEDS: VANCOMYCIN 1 GM PREMIX - 1 GM/200 ML BAG IVPB SCH (17:36)
== END 2019-01-24 17:52 | DRG 629 ==
LOC: JER 15:40 → JERBED 16:38 → J5S 01-13 03:33
PROVIDERS: ADMIT Internal Medicine; ATTEND Internal Medicine
PROC: 0J9R0ZZ Drainage of Left Foot Subcutaneous Tissue and Fascia, Open Approach (ICD-10-PCS; 2019-01-19)
PROC: 0QBP0ZX Excision of Left Metatarsal, Open Approach, Diagnostic (ICD-10-PCS; principal; 2019-01-19 08:00)
PROC: 02HV33Z Insertion of Infusion Device into Superior Vena Cava, Percutaneous Approach (ICD-10-PCS; 2019-01-23)
PROC: B518ZZA Fluoroscopy of Superior Vena Cava, Guidance (ICD-10-PCS; 2019-01-23)
DX: E11.69 Type 2 diabetes mellitus with other specified complication (principal); L03.116 Cellulitis of left lower limb; E46 Unspecified protein-calorie malnutrition; M86.9 Osteomyelitis, unspecified; E11.621 Type 2 diabetes mellitus with foot ulcer; E78.5 Hyperlipidemia, unspecified; I10 Essential (primary) hypertension; E88.09 Other disorders of plasma-protein metabolism, not elsewhere classified; E66.9 Obesity, unspecified; S92.402A Displaced unspecified fracture of left great toe, initial encounter for closed fracture; E03.9 Hypothyroidism, unspecified; Z68.34 Body mass index [BMI] 34.0-34.9, adult; R00.1 Bradycardia, unspecified; X58.XXXA Exposure to other specified factors, initial encounter; Y93.9 Activity, unspecified; Y92.89 Other specified places as the place of occurrence of the external cause; Y99.9 Unspecified external cause status
CPT/HCPCS: 36415; 36569; 71045-TC-FY; 73630-TC-LT; 73718-TC-LT; 75635-TC; 77001-TC-FY; 80048; 80053; 81003; 82728; 82962; 83036; 83540; 83550; 83735; 84100; 84439; 84443; 84481; 85025; 85027; 85610; 85651; 86140; 86850; 86900; 86901; 87040; 87070; 87075; 87077; 87186; 87205; 88304-TC; 88311-TC; 93005; 93010; 93971-TC; 94760; 97116-GP; 97161-GP; 99282-25; C1751; G0463-25; G0480; J1644